=== PATIENT | male | born 1980 ===

== ENCOUNTER 2020-12-23 13:18 | Emergency (ER) | payer OTHER, SELFPAY ==
[2020-12-23 13:51] VITALS: BP 144/78; PULSE 639; RESP 16; TEMP 36.7; O2SAT 97; BMI 35.2
[2020-12-23] MEDS: Tetracaine HCl/PF 0.5% Oph Sol 4 ML DROPS 3 DROP EYE-LEFT (14:23)
[2020-12-23] MEDS: Fluorescein Sodium STRIP 1 STRIP EYE-LEFT (14:23)
[2020-12-23] MEDS: Erythromycin Base 0.5% Oph Oin 1 GM TUBE 1 CM EYE-RIGHT (15:53)
--- NOTE | 2021-01-05 16:27 | ED.EYEPROB ---
HPI - Eye Problem General Chief complaint: Eye Problems Stated complaint: FB IN R EYE Time Seen by Provider: 12/23/20 14:11 History of Present Illness HPI Narrative: patient complains of stye in right upper lid, no vision change no eye pain no vision loss no discharge from a no injury to eye Related Data Previous Rx's Medication Instructions Recorded erythromycin 0.5 inch OPHTHALMIC (EYE) TID 5 12/23/20 Days #3.5 g Allergies Allergy/AdvReac Type Severity Reaction Status Date / Time No Known Allergies Allergy Verified 12/23/20 14:59 [No Known Allergies*] Review of Systems Review of Systems: positive for right eye stye Negatives are no fever no chills no dizziness no headache no vision loss no vision change no eye pain no photophobia no discharge from the eye no foreign body, no skin rash Yes all other systems are reviewed and are negative [facility] Past Medical History Source: nursing notes reviewed Medical History (Updated 12/24/20 @ 00:00 by Background Daemon) No known health problems Social History Social History Advance Directives: No Advance Directives Information Provided: Yes Physical Exam Vital Signs: Vital Signs: Last Vital Signs Temp 98.1 F 12/23/20 13:51 Pulse 639 H 12/23/20 13:51 Resp 16 12/23/20 13:51 BP 144/78 H 12/23/20 13:51 Pulse Ox 97 12/23/20 13:51 Body Mass Index 35.2 general appearance no acute distress Head is normocephalic atraumatic Eyes pupils equal round reactive to light, extraocular motions are intact Visual acuity was 5 bilateral The right eye had a stye in the upper lid medial aspect The eye was stained with fluorescein and no corneal abrasion or defect was seen, there was no discharge from the eye Skin no rash Course Course Course Narrative: patient is advised warm soaks and apply erythromycin and follow with eye doctor if not resolving Discharge Plan Discharge Clinical Impression: Hordeolum externum right upper eyelid Patient Disposition: Home, Self-Care Additional Instructions: Apply warm soaks frequently Apply antibiotic ointment 3 times a day Return any time for worsening eye pain, vision loss, discharge from the eye, any worse condition or concern Follow with eye doctor as needed Prescriptions: New erythromycin 5 mg/gram (0.5 %) ointment 0.5 inch ophthalmic (eye) TID 5 Days Qty: 3.5 RF: 0 Referrals: Alireza Chandler [Physician] - 2 days (Right upper lid stye that has failed to improve for 2 weeks) Interventions: ED Discharge Assessment Last Done: 12/23/20 15:57 Discharge Date/Time: 12/23/20 15:58
== END 2020-12-23 15:58 | disposition home or self-care (01) ==
PROVIDERS: Emergency Provider Emergency Medicine Emergency Medical Services; PCP Internal Medicine
DX: H00.011 Hordeolum externum right upper eyelid (principal)
CPT/HCPCS: 99283; 99284

== ENCOUNTER 2021-02-01 21:02 | Emergency (ER) | payer OTHER, SELFPAY ==
--- NOTE | ~2021-02-01 | XR_ITS ---
EXAMINATION: XR CHEST CLINICAL INFORMATION: Productive cough. COMPARISON: CT abdomen pelvis dated 02/28/2014 TECHNIQUE: Frontal view of the chest was obtained. FINDINGS: There is a small left pleural effusion with associated left basilar atelectasis. Superimposed airspace consolidation in the left lung base is possible. Mild dependent atelectasis is suspected in the right lung base. No pneumothorax. Cardiac and mediastinal contours are normal. Scoliotic curvature is evident in the thoracic spine. No acute osseous findings. XR/XR chest 1V IMPRESSION: Small left effusion with associated left basilar opacities which may be atelectatic or consolidative in nature.
[2021-02-01 21:23] VITALS: BP 124/62; PULSE 73; RESP 18; TEMP 36.2; O2SAT 95; BMI 35.2
[2021-02-01 22:41] LABS: COVID-19 Test Negative (Negative); IDNOW Serial# 9DD0AD1C
[2021-02-01 23:05] LABS: MANUAL DIFF FLAG NO
[2021-02-01 23:06] LABS: Basophils Absolute Auto 0.1 X10*3/uL (0.0-0.2); Basophils Percent Auto 0.5 % (0-2); Eosinophils Absolute Auto 0.4 X10*3/uL (0.0-0.4); Eosinophils Percent Auto 2.7 % (0-4); Hematocrit 38.9 % (42-52); Imm Gran Abs Auto 0.05 X10*3/uL (0.00-0.03); Imm Gran Pct Auto 0.4 % (0.0-0.4); Lymphocytes Absolute Auto 4.7 X10*3/uL (1.2-4.9); Lymphocytes Percent Auto 35.8 % (20-40); Mean Corpuscular HGB Conc 33.4 g/dl (31.0-36.0); Mean Corpuscular Hemoglobin 29.1 pg (27.0-33.0); Mean Corpuscular Volume 87.2 fL (80-98); Mean Platelet Volume 9.4 fL (9.4-12.4); Monocytes Absolute Auto 1.2 X10*3/uL (0.1-1.2); Monocytes Percent Auto 8.9 % (2-11); Neutrophils Absolute Auto 6.8 X10*3/uL (2.0-8.3); Neutrophils Percent Auto 51.7 % (45-73); Platelet Count 212 X10*3/uL (160-400); Red Blood Count 4.46 X10*6/uL (4.60-5.80); Red Cell Distribution Width 14.1 % (11.0-16.0); White Blood Count 13.2 X10*3/uL (4.8-10.8)
[2021-02-01 23:38] LABS: Alanine Aminotransferase 41 U/L (0-40); Albumin Level 3.6 g/dL (3.5-5.0); Alkaline Phosphatase 79 U/L (39-117); Anion Gap 12 (12-20); Aspartate Amino Transferase 35 U/L (5-37); Bilirubin Total 0.2 mg/dL (0.0-1.0); Blood Urea Nitrogen 11 mg/dL (9-16); Calcium 8.6 mg/dL (8.4-10.2); Carbon Dioxide 29 mmol/L (22-29); Chloride 103 mmol/L (96-108); Creatinine Clr Calc Pharmacy 146.4; Estimated Glomerular Filt Rate > 60; Glucose Random 88 mg/dL (60-115); Potassium 3.8 mmol/L (3.3-5.1); Sodium 140 mmol/L (135-145); Total Protein 6.5 g/dL (6.5-8.0)
--- NOTE | 2021-02-02 01:25 | ED_ITS ---
HPI - General Adult General Chief complaint: General Medical Stated complaint: asthma, cough Time Seen by Provider: 02/02/21 01:00 Source: patient Mode of arrival: ambulatory Limitations: no limitations History of Present Illness HPI narrative: 40-year-old male who presents emergency department for evaluation of a cough shortness of breath and a possible infection of his left forearm after injecting heroin. The patient states he has been sick for approximately 7 days. He states he has had a cough which is productive of thick yellow sputum. He states he is having pain in this chest mainly with breathing and with coughing. He points to his sternum when asked to localize the pain he describes the pain as sharp pain. The pain is [id number] in intensity. The patient denied fever or chills. He states that he does have asthma ran out of his inhaler any feels like he has been wheezing. The patient is currently in a methadone program. He states that he was sober for approximately 1 year but 1 week prior he used heroin. He states that he injected heroin into his left antecubital fossa. He is not concerned that has an infection this area. He states that the area where he injected is warm to the touch and swollen. No also states this area is painful. The patient has not been vaccinated for COVID-19. Related Data Previous Rx's Medication Instructions Recorded erythromycin 5 mg/gram (0.5 %) eye 0.5 inch OPHTHALMIC (EYE) TID 5 12/23/20 ointment Days #3.5 g albuterol sulfate 90 mcg/actuation 2 puff INHALATION Q4-6H PRN #8.5 g 02/02/21 aerosol inhaler azithromycin 250 mg tablet See Rx Instructions .ROUTE 02/02/21 (Zithromax Z-Chris) .COMPLEX #6 tab cefuroxime axetil 500 mg tablet 500 mg PO Q12H 7 Days #14 tab 02/02/21 Allergies Allergy/AdvReac Type Severity Reaction Status Date / Time No Known Allergies Allergy Verified 12/23/20 14:59 [No Known Allergies*] Review of Systems Review of Systems: Yes all other systems are reviewed and are negative PMFSH Past Medical History Medical History Asthma Drug abuse and dependence Hypothyroid Methadone maintenance therapy patient No known health problems Social History Social History Alcohol intake: unknown Patient Tobacco Use Status: Refuse Tobacco use screen Use of substances other than those prescribed or required for medical reasons: Yes Substance Use Type: Heroin and Marijuana Substance Use Frequency: Weekly Last Used Substance: Unknown Advance Directives: No Advance Directives Information Provided: Yes Physical Exam Vital Signs: Vital Signs: Last Vital Signs Temp 97.2 F 02/01/21 21:23 Pulse 73 02/01/21 21:23 Resp 18 02/01/21 21:23 BP 124/62 02/01/21 21:23 Pulse Ox 95 02/01/21 21:23 Body Mass Index 35.2 Const: General: cooperative and no acute distress Or ientation/consciousness: oriented to person and oriented to place Limitat ions: no limitations HENMT: Head: Yes normal to inspection, Yes normocephalic and Yes atraumatic Ears: external ears normal General nose exam: Normal external nose present Face and sinus: Yes normal facial exam Mouth: Normal oral and palatal mucosa present Throat: Yes posterior oropharynx normal Eyes: General: appearance normal, both eyes and all related structures Pupils: Equal, round and reactive pupils present Neck: Neck: Yes normal visual inspection, Yes no lymphadenopathy, Yes trachea midline and Yes supple Chest: Chest palpation & inspection: normal inspection of the chest and normal palpation of entire chest wall Resp: Effort & Inspection: normal respiratory effort and able to speak in complete sentences Auscultation: crackles (Left base) and wheezes (Diffuse) Cardio: Rate: regular rate Rhythm: regular rhythm Heart sounds: S1 normal heart sound present, S2 normal heart sound present and no murmurs GI: Inspection: Yes normal to inspection Palpation (GI): Soft to palpation, nontender and no guarding Auscultation: normal bowel sounds : General: Yes no CVA tenderness Back/Spine/Pelvis: Back: no CVA tenderness Skin: General skin exam: no rashes or lesions noted Neuro: General: oriented to person and oriented to place Cranial nerves: Yes CN's II-XII intact bilaterally and Yes Equal, round and reactive pupils present Cognition (Neuro): normal cognition Motor exam (neuro): 5/5 motor strength present throughout Extrem: Other: The patient does have some increased erythema with increased warmth of the left proximal forearm and left antecubital fossa, there is induration is area but no flocculence, there is no purulent drainage is extremity is neurovascularly intact. Psych: Appearance: grossly normal Speech and movement: Normal speech and movement present Affect: normal affect Attitude: cooperative Thought process: Normal thought process present Thought content: Normal thought content present Course Course Course Narrative: 40-year-old male who presents emergency department for evaluation of pneumonia like symptoms and a cellulitis of the left antecubital fossa and injecting heroin 1 week prior. Vital signs were normal. The patient's physical examination did reveal rales at the left base and diffuse wheezing. Patient's left arm does have an area of increased warmth and erythema with induration consistent with cellulitis. Patient's laboratory [place] [address] otherwise labs were normal. Patient's COVID-19 test was negative. Chest x-ray did reveal a left pleural effusion with infiltrate c onsistent with pneumonia. The patient's pneumonia and cellulitis we treated with Zithromax Z-Chris and cefuroxime 500 mg every 12 hours x7 days. He was given Zithromax 500 mg orally and cefuroxime 5 mg orally here in the emergency department. He was also given an albuterol inhaler 4 puffs here in the emergency department. The patient was given verbal and printed instructions prior to discharge. The patient was advised to follow-up with his PCP in 2 days and to return to the emergency department if his symptoms get worse or if he develops any new symptoms that are concerning to him. Medical Decision Making Lab Data Result diagrams: 02/01/21 22:58 02/01/21 22:58 Labs: Lab Results 02/01/21 02/01/21 02/01/21 Range/Units 21:59 22:58 22:58 WBC 13.2 H (4.8-10.8) X10*3/uL RBC 4.46 L (4.60-5.80) X10*6/uL Hgb 13.0 L (14.0-18.0) g/dl Hct 38.9 L (42-52) % MCV 87.2 (80-98) fL MCH 29.1 (27.0-33.0) pg MCHC 33.4 (31.0-36.0) g/dl RDW 14.1 (11.0-16.0) % Plt Count 212 (160-400) X10*3/uL MPV 9.4 (9.4-12.4) fL Immature Gran % (Auto) 0.4 (0.0-0.4) % Neut % (Auto) 51.7 (45-73) % Lymph % (Auto) 35.8 (20-40) % [place] % (Auto) 8.9 (2-11) % Eos % (Auto) 2.7 (0-4) % Baso % (Auto) 0.5 (0-2) % Lymph # (Auto) 4.7 (1.2-4.9) X10*3/uL [place] # (Auto) 1.2 (0.1-1.2) X10*3/uL Eos # (Auto) 0.4 (0.0-0.4) X10*3/uL Baso # (Auto) 0.1 (0.0-0.2) X10*3/uL Abs Immat Gran (auto) 0.05 H (0.00-0.03) X10*3/uL Absolute Neuts (auto) 6.8 (2.0-8.3) X10*3/uL Absolute Nucleated RBC 0.000 (0.0-0.012) X10*3/uL Nucleated RBC % (auto) 0.0 (0.0-0.2) /100WBC Sodium 140 (135-145) mmol/L Potassium 3.8 (3.3-5.1) mmol/L Chloride 103 (96-108) mmol/L Carbon Dioxide 29 (22-29) mmol/L Anion Gap 12 (12-20) BUN 11 (9-16) mg/dL Creatinine 0.88 (0.5-1.4) mg/dL Estim Creat Clear Calc 146.4 Estimated GFR > 60 Random Glucose 88 (60-115) mg/dL Calcium 8.6 (8.4-10.2) mg/dL Total Bilirubin 0.2 (0.0-1.0) mg/dL AST 35 (5-37) U/L ALT 41 H (0-40) U/L Alkaline Phosphatase 79 (39-117) U/L Total Protein 6.5 (6.5-8.0) g/dL Albumin 3.6 (3.5-5.0) g/dL COVID-19 (JANEEN) Negative (Negative) COVID-19 Clin Com See Note Discharge Plan Discharge Clinical Impression: Cellulitis of arm, left, Pneumonia, Asthma Patient Disposition: Home, Self-Care Instructions: Pneumonia (ED), Cellulitis (ED) Additional Instructions: Your laboratory evaluation was normal. Your chest x-ray is concerning for a left lower lobe pneumonia. Examination of your left arm is concerning for skin infection (cellulitis). I am treating with 2 antibiotics that we treat your pneumonia and your cellulitis. Take Zithromax Z-Chris as prescribed. Take Ceftin (cefuroxime) 500 mg pills, 1 pill every 12 hours for 7 days. Use the albuterol inhaler 2 puffs every 4 hours as needed for shortness of breath and wheezing. I am sending you home with a intranasal Narcan dispense pack. If you are going to continue to use heroin, you should make sure that you use with a friend that is sober and not using drugs. If you stop breathing, then your friend can use the intranasal Narcan and save her life. Follow-up with your doctor in 2 days. Please return to the emergency department if your symptoms get worse or if you develop any symptoms that are concerning to you. Prescriptions: New cefuroxime axetil 500 mg tablet 500 mg PO Q12H 7 Days Qty: 14 RF: 0 albuterol sulfate 90 mcg/actuation HFA aerosol inhaler 2 puff inhalation Q4-6H PRN (Reason: shortness of breath or wheezing) Qty: 8.5 RF: 0 azithromycin [Zithromax Z-Chris] 250 mg tablet See Rx Instructions .ROUTE .COMPLEX Qty: 6 RF: 0 No Action erythromycin 5 mg/gram (0.5 %) ointment 0.5 inch ophthalmic (eye) TID 5 Days Qty: 3.5 RF: 0
[2021-02-02] MEDS: Naloxone HCl Nasal TAKE HOME 4 MG SPRAY NOSTRILALT (02:07)
[2021-02-02] MEDS: Albuterol Sulfate 90 MCG 8 GM INHALER 4 PUFF INHALE (02:07)
[2021-02-02] MEDS: Azithromycin 500 MG TABLET PO (02:07)
== END 2021-02-02 02:35 | disposition home or self-care (01) ==
PROVIDERS: Emergency Provider Emergency Medicine Emergency Medical Services; PCP Internal Medicine
DX: J18.9 Pneumonia, unspecified organism (principal); L03.114 Cellulitis of left upper limb; R05 Cough; J45.909 Unspecified asthma, uncomplicated; F11.90 Opioid use, unspecified, uncomplicated; F12.90 Cannabis use, unspecified, uncomplicated; Z79.899 Other long term (current) drug therapy; Z20.822 Contact with and (suspected) exposure to COVID-19
CPT/HCPCS: 36415; 71045; 80053; 85025; 87635; 99284

== ENCOUNTER 2021-02-04 19:45 | Inpatient (IN) | payer OTHER, SELFPAY ==
--- NOTE | ~2021-02-04 | US_ITS ---
EXAMINATION: US VENOUS WITH DOPPLER UPPER EXTREMITY, LEFT CLINICAL INFORMATION: Swelling. COMPARISON: None TECHNIQUE: Ultrasound of the upper extremity is performed using compression sonography and color and pulse Doppler flow with assessment of augmentation of flow. There is also imaging and Doppler assessment of the jugular and subclavian veins. Spectral analysis with color-flow imaging is performed. FINDINGS: Respiratory variation, normal compression, and augmented flow are noted throughout the upper extremity including the axillary, brachial, cubital, and radial and ulnar veins. There is normal flow in the internal jugular and subclavian veins. There is no visible deep or superficial thrombophlebitis. There is small anechoic area seen in the anterior elbow joint most suggestive of small fluid collection likely cellulitis or abscess. There appears to be no connection to the joint space. If the patient's symptoms progress, a followup ultrasound in 5 -7 days might be of value to exclude proximal propagation from a nonvisualized distal arm vein. US/US venous duplex UE LT IMPRESSION: No DVT demonstrated in left upper extremity.
--- NOTE | ~2021-02-04 | XR_ITS ---
EXAMINATION: XR ELBOW, LEFT CLINICAL INFORMATION: Pain and swelling COMPARISON: None TECHNIQUE: AP, lateral, and oblique views of the left elbow. FINDINGS: The bones and soft tissues are normal. No fracture or joint effusion. Alignment is anatomic. Joint spaces are maintained. XR/XR elbow LT 2V IMPRESSION: Normal left elbow.
[2021-02-04 20:02] VITALS: BP 116/69; PULSE 81; RESP 16; TEMP 37.2; O2SAT 94; BMI 35.2
[2021-02-04 20:57] LABS: MANUAL DIFF FLAG NO
[2021-02-04 21:02] LABS: Basophils Absolute Auto 0.1 X10*3/uL (0.0-0.2); Basophils Percent Auto 0.3 % (0-2); Eosinophils Percent Auto 0.1 % (0-4); Imm Gran Abs Auto 0.07 X10*3/uL (0.00-0.03); Imm Gran Pct Auto 0.4 % (0.0-0.4); Lymphocytes Absolute Auto 1.9 X10*3/uL (1.2-4.9); Lymphocytes Percent Auto 11.5 % (20-40); Mean Corpuscular HGB Conc 34.2 g/dl (31.0-36.0); Mean Corpuscular Hemoglobin 29.4 pg (27.0-33.0); Mean Platelet Volume 9.1 fL (9.4-12.4); Monocytes Absolute Auto 0.9 X10*3/uL (0.1-1.2); Monocytes Percent Auto 5.2 % (2-11); Neutrophils Absolute Auto 13.8 X10*3/uL (2.0-8.3); Neutrophils Percent Auto 82.5 % (45-73); Platelet Count 224 X10*3/uL (160-400); Red Blood Count 4.42 X10*6/uL (4.60-5.80); White Blood Count 16.7 X10*3/uL (4.8-10.8)
[2021-02-04 21:19] LABS: Ethanol < 10 mg/dL
[2021-02-04 21:21] LABS: Anion Gap 14 (12-20); Blood Urea Nitrogen 11 mg/dL (9-16); Carbon Dioxide 26 mmol/L (22-29); Chloride 102 mmol/L (96-108); Creatinine Clr Calc Pharmacy 153.4; Estimated Glomerular Filt Rate > 60; Glucose Random 105 mg/dL (60-115); Potassium 3.8 mmol/L (3.3-5.1); Sodium 138 mmol/L (135-145)
--- NOTE | 2021-02-04 22:00 | ED_ITS ---
HPI - Skin/Abscess/Foreign Bdy General Chief complaint: Skin/Abscess/Foreign Body Stated complaint: Arm swelling Time Seen by Provider: 02/04/21 21:33 Source: patient Mode of arrival: ambulatory Limitations: no limitations History of Present Illness HPI narrative: 40 years old male came in for evaluation of left arm infection. Patient was seen in the emergency department 2 days ago for left arm infection after IV heroin injection into the ECU of the left arm, patient also was diagnosed with possible left lung pneumonia, patient was sent home on cefuroxime, the Cerumenex and erythromycin ointment to apply to the infected area of the left arm. Patient came back today feeling his arm is getting worse, more pain and more swelling and more redness noted on the left arm. No subjective fever or chills. Related Data Previous Rx's Medication Instructions Recorded erythromycin 5 mg/gram (0.5 %) eye 0.5 inch OPHTHALMIC (EYE) TID 5 12/23/20 ointment Days #3.5 g albuterol sulfate 90 mcg/actuation 2 puff INHALATION Q4-6H PRN #8.5 g 02/02/21 aerosol inhaler azithromycin 250 mg tablet See Rx Instructions .ROUTE 02/02/21 (Zithromax Z-Chris) .COMPLEX #6 tab cefuroxime axetil 500 mg tablet 500 mg PO Q12H 7 Days #14 tab 02/02/21 Allergies Allergy/AdvReac Type Severity Reaction Status Date / Time No Known Allergies Allergy Verified 02/04/21 20:10 [No Known Allergies*] Review of Systems Review of Systems: All other systems are reviewed and are negative Constitutional: Reports as per HPI and Reports no additional constitutional complaints Eyes: Reports as per HPI and Reports no additional eye complaints Reports system reviewed and no additional complaints, except as documented Cardiovascular: Reports as per HPI and Reports no additional cardiovascular complaints Respiratory: Reports as per HPI and Reports no additional respiratory complaints Gastrointestinal: Reports as per HPI and Reports no additional gastrointestinal complaints Genitourinary: Reports no additional female genitourinary complaints Musculoskeletal: Reports no additional musculoskeletal complaints Skin/Breast: Reports system reviewed and no additional complaints, except as docu Psychiatric: Reports no additional psychiatric complaints Endocrine: Reports no additional endocrine complaints Hematologic/Lymphatic: Reports no additional hematologic/lymphatic complaints Allergic/Immunologic: Reports no additional allergic/immunologic complaints Reports system reviewed and no additional complaints, except as documented and Reports Abnormal speech present PMFSH Past Medical History Medical History Asthma Drug abuse and dependence Hypothyroid Methadone maintenance therapy patient No known health problems Social History Social History Alcohol intake: unknown Patient Tobacco Use Status: Refuse Tobacco use screen Substance Use Type: Heroin and Marijuana Advance Directives: No Physical Exam Vital Signs: Vital Signs: Last Vital Signs Temp 99 F 02/04/21 20:02 Pulse 81 02/04/21 20:02 Resp 16 02/04/21 20:02 BP 116/69 02/04/21 20:02 Pulse Ox 94 02/04/21 20:02 Body Mass Index 35.2 Vital signs have been reviewed as appeared to be correct. Blood pressure normal. Heart rate normal. Respiration rate normal. Temperature normal. Oxygen saturation normal. Appearance: Alert. Oriented X3. No acute distress. Head: Normal external exam. Normocephalic. Atraumatic. No Delgado signs noted. No raccoon eyes noted Eyes: PERRLA. EOMI. Conjunctiva and sclera normal. Eyelids normal. ENT: TM's Normal. Pharynx normal. Uvula midline. Moist mucous membranes. No trismus noted. No drooling noted. No muffled voice noted. Neck: Normal inspection. Neck supple. FROM. No adenopathy. Thyroid Normal. No meningeal signs. No neck mass noted. CVS: Normal heart rate and rhythm. Heart sound normal. No murmurs noted. Pulses normal throughout. Respiratory: No respiratory distress. Painless inspiration. Breath sounds normal. No wheezes/rales/rhonchi noted. Chest nontender. No accessory muscle usage noted or decreased air movement noted. Abdomen: Soft and nontender. Bowel sounds normal in all 4 quadrants. No distention noted. No organomegaly noted. No visible injury noted. Back: No CVA tenderness. Full range of motion noted. Skin: Skin warm and dry. Normal skin color. Normal skin turgor. No rashes/lesions/lacerations noted. Extremities: Left forearm swelling, diffuse tenderness, hotness, and redness to the left forearm. 3 x 4 cm area of fluctuation in the left AC. Neuro: Oriented X 3. No motor deficit. No sensory deficit. Reflexes normal. Course Course Course Narrative: Assessment and plan. 40-year-old male IV drug abuser was seen 2 days ago for left forearm cellulitis patient was sent home on p.o. antibiotic, patient returned today for worsening of the swelling, redness, hotness, also patient formed new abscess in the left AC that required to be incision and drained please refer to my procedure note for I and D, patient will require IV antibiotic, patient do not meet criteria for SIRS. MDM - Skin/Abscess/Foreign Bdy Lab Data Attestation: I reviewed the patient's lab results. Result diagrams: 02/04/21 20:51 02/04/21 20:51 Labs: Lab Results 02/04/21 02/04/21 02/04/21 Range/Units 20:47 20:51 20:51 WBC 16.7 H (4.8-10.8) X10*3/uL RBC 4.42 L (4.60-5.80) X10*6/uL Hgb 13.0 L (14.0-18.0) g/dl Hct 38.0 L (42-52) % MCV 86.0 (80-98) fL MCH 29.4 (27.0-33.0) pg MCHC 34.2 (31.0-36.0) g/dl RDW 14.0 (11.0-16.0) % Plt Count 224 (160-400) X10*3/uL MPV 9.1 L (9.4-12.4) fL Immature Gran % (Auto) 0.4 (0.0-0.4) % Neut % (Auto) 82.5 H (45-73) % Lymph % (Auto) 11.5 L (20-40) % [place] % (Auto) 5.2 (2-11) % Eos % (Auto) 0.1 (0-4) % Baso % (Auto) 0.3 (0-2) % Lymph # (Auto) 1.9 (1.2-4.9) X10*3/uL [place] # (Auto) 0.9 (0.1-1.2) X10*3/uL Eos # (Auto) 0.0 (0.0-0.4) X10*3/uL Baso # (Auto) 0.1 (0.0-0.2) X10*3/uL Abs Immat Gran (auto) 0.07 H (0.00-0.03) X10*3/uL Absolute Neuts (auto) 13.8 H (2.0-8.3) X10*3/uL Absolute Nucleated RBC 0.000 (0.0-0.012) X10*3/uL Nucleated RBC % (auto) 0.0 (0.0-0.2) /100WBC Sodium 138 (135-145) mmol/L Potassium 3.8 (3.3-5.1) mmol/L Chloride 102 (96-108) mmol/L Carbon Dioxide 26 (22-29) mmol/L Anion Gap 14 (12-20) BUN 11 (9-16) mg/dL Creatinine 0.84 (0.5-1.4) mg/dL Estim Creat Clear Calc 153.4 Estimated GFR > 60 Random Glucose 105 (60-115) mg/dL Lactic Acid 0.8 (0.5-2.0) mmol/L Calcium 9.0 (8.4-10.2) mg/dL Urine Color Urine Appearance Urine pH (5.0-8.0) Ur Specific [place] (1.005-1.025) Urine Protein (NEG-TRACE) MG/DL Urine Glucose (UA) (NEG) MG/DL Urine Ketones (NEG) MG/DL Urine Blood (NEG) Urine Nitrite (NEG) Ur Leukocyte Esterase (NEG) Urine Opiates Screen (Not Detect) Ur Barbiturates Screen (Not Detect) Ur Phencyclidine Scrn (Not Detect) Ur Amphetamines Screen (Not Detect) U Benzodiazepines Scrn (Not Detect) Urine Cocaine Screen (Not Detect) U Marijuana (THC) Screen (Not Detect) Ethyl Alcohol mg/dL COVID-19 (JANEEN) (Negative) COVID-19 Clin Com 02/04/21 02/04/21 02/04/21 Range/Units 20:51 21:50 21:50 WBC (4.8-10.8) X10*3/uL RBC (4.60-5.80) X10*6/uL Hgb (14.0-18.0) g/dl Hct (42-52) % MCV (80-98) fL MCH (27.0-33.0) pg MCHC (31.0-36.0) g/dl RDW (11.0-16.0) % Plt Count (160-400) X10*3/uL MPV (9.4-12.4) fL Immature Gran % (Auto) (0.0-0.4) % Neut % (Auto) (45-73) % Lymph % (Auto) (20-40) % [place] % (Auto) (2-11) % Eos % (Auto) (0-4) % Baso % (Auto) (0-2) % Lymph # (Auto) (1.2-4.9) X10*3/uL [place] # (Auto) (0.1-1.2) X10*3/uL Eos # (Auto) (0.0-0.4) X10*3/uL Baso # (Auto) (0.0-0.2) X10*3/uL Abs Immat Gran (auto) (0.00-0.03) X10*3/uL Absolute Neuts (auto) (2.0-8.3) X10*3/uL Absolute Nucleated RBC (0.0-0.012) X10*3/uL Nucleated RBC % (auto) (0.0-0.2) /100WBC Sodium (135-145) mmol/L Potassium (3.3-5.1) mmol/L Chloride (96-108) mmol/L Carbon Dioxide (22-29) mmol/L Anion Gap (12-20) BUN (9-16) mg/dL Creatinine (0.5-1.4) mg/dL Estim Creat Clear Calc Estimated GFR Random Glucose (60-115) mg/dL Lactic Acid (0.5-2.0) mmol/L Calcium (8.4-10.2) mg/dL Urine Color YELLOW Urine Appearance CLEAR Urine pH 6.0 (5.0-8.0) Ur Specific [place] 1.010 (1.005-1.025) Urine Protein NEG (NEG-TRACE) MG/DL Urine Glucose (UA) NEG (NEG) MG/DL Urine Ketones NEG (NEG) MG/DL Urine Blood NEG (NEG) Urine Nitrite NEG (NEG) Ur Leukocyte Esterase NEG (NEG) Urine Opiates Screen POSITIVE H (Not Detect) Ur Barbiturates Screen Not Detected (Not Detect) Ur Phencyclidine Scrn Not Detected (Not Detect) Ur Amphetamines Screen Not Detected (Not Detect) U Benzodiazepines Scrn Not Detected (Not Detect) Urine Cocaine Screen POSITIVE H (Not Detect) U Marijuana (THC) Screen Not Detected (Not Detect) Ethyl Alcohol < 10 mg/dL COVID-19 (JANEEN) (Negative) COVID-19 Clin Com 02/04/21 02/04/21 Range/Units 22:20 22:20 WBC (4.8-10.8) X10*3/uL RBC (4.60-5.80) X10*6/uL Hgb (14.0-18.0) g/dl Hct (42-52) % MCV (80-98) fL MCH (27.0-33.0) pg MCHC (31.0-36.0) g/dl RDW (11.0-16.0) % Plt Count (160-400) X10*3/uL MPV (9.4-12.4) fL Immature Gran % (Auto) (0.0-0.4) % Neut % (Auto) (45-73) % Lymph % (Auto) (20-40) % [place] % (Auto) (2-11) % Eos % (Auto) (0-4) % Baso % (Auto) (0-2) % Lymph # (Auto) (1.2-4.9) X10*3/uL [place] # (Auto) (0.1-1.2) X10*3/uL Eos # (Auto) (0.0-0.4) X10*3/uL Baso # (Auto) (0.0-0.2) X10*3/uL Abs Immat Gran (auto) (0.00-0.03) X10*3/uL Absolute Neuts (auto) (2.0-8.3) X10*3/uL Absolute Nucleated RBC (0.0-0.012) X10*3/uL Nucleated RBC % (auto) (0.0-0.2) /100WBC Sodium (135-145) mmol/L Potassium (3.3-5.1) mmol/L Chloride (96-108) mmol/L Carbon Dioxide (22-29) mmol/L Anion Gap (12-20) BUN (9-16) mg/dL Creatinine (0.5-1.4) mg/dL Estim Creat Clear Calc Estimated GFR Random Glucose (60-115) mg/dL Lactic Acid 0.7 (0.5-2.0) mmol/L Calcium (8.4-10.2) mg/dL Urine Color Urine Appearance Urine pH (5.0-8.0) Ur Specific [place] (1.005-1.025) Urine Protein (NEG-TRACE) MG/DL Urine Glucose (UA) (NEG) MG/DL Urine Ketones (NEG) MG/DL Urine Blood (NEG) Urine Nitrite (NEG) Ur Leukocyte Esterase (NEG) Urine Opiates Screen (Not Detect) Ur Barbiturates Screen (Not Detect) Ur Phencyclidine Scrn (Not Detect) Ur Amphetamines Screen (Not Detect) U Benzodiazepines Scrn (Not Detect) Urine Cocaine Screen (Not Detect) U Marijuana (THC) Screen (Not Detect) Ethyl Alcohol mg/dL COVID-19 (JANEEN) Negative (Negative) COVID-19 Clin Com See Note Procedures Abscess I/D Site: upper extremity (Left AC) Side (if applicable): left Local Anesthetic: lidocaine 1% Amount of anesthesia used (mL): 5 Technique: incised with blade Amount of fluid expressed (mL): 15 Sent for culture/gram staining?: No Irrigation: No Packing used?: none Discharge Plan Discharge Clinical Impression: Cellulitis, Abscess of skin or subcutaneous tissue Patient Disposition: Admitted As Inpatient Prescriptions: No Action cefuroxime axetil 500 mg tablet 500 mg PO Q12H 7 Days Qty: 14 RF: 0 albuterol sulfate 90 mcg/actuation HFA aerosol inhaler 2 puff inhalation Q4-6H PRN (Reason: shortness of breath or wheezing) Qty: 8.5 RF: 0 azithromycin [Zithromax Z-Chris] 250 mg tablet See Rx Instructions .ROUTE .COMPLEX Qty: 6 RF: 0 erythromycin 5 mg/gram (0.5 %) ointment 0.5 inch ophthalmic (eye) TID 5 Days Qty: 3.5 RF: 0
[2021-02-04 22:01] LABS: Appearance Urine CLEAR; Color Urine YELLOW; Glucose Urine UA NEG (NEG); Leukocyte Esterase Urine NEG (NEG); Nitrite Urine NEG (NEG); Urine Blood NEG (NEG); Urine Ketones NEG (NEG); Urine Protein NEG (NEG-TRACE)
[2021-02-04 22:06] LABS: Lactic Acid 0.8 mmol/L (0.5-2.0)
[2021-02-04 22:27] LABS: Amphetamine Screen Urine Not Detected (Not Detect); Barbiturates, Urine Not Detected (Not Detect); Benzodiazepines Screen Urine Not Detected (Not Detect); Cannabinoid Screen Urine Not Detected (Not Detect); Cocaine Screen Urine POSITIVE (Not Detect); Opiate Screen Urine POSITIVE (Not Detect); Phencyclidine Screen Urine Not Detected (Not Detect)
[2021-02-04] MEDS: Piperacillin Sodium/Tazobactam 3.375 GM in 0.9 % Sodium Chloride 50 ML IV (22:32)
--- NOTE | 2021-02-04 22:34 | PC.NURSE ---
Dr. Chino to bedside to perform I&D on abscess to left inner forearm. ABX hung and running per SEP.
[2021-02-04 22:43] LABS: COVID-19 Test Negative (Negative)
[2021-02-04] MEDS: Lidocaine HCl 1 % MPF 5 ML VIAL 10 ML SUBCUT (22:44)
[2021-02-04 22:50] LABS: Lactic Acid 0.7 mmol/L (0.5-2.0)
[2021-02-04] MEDS: vancomycin HCL 1,000 MG in 0.9 % Sodium Chloride 250 ML 270 MG IV (23:21)
--- NOTE | 2021-02-05 00:52 | PM.IMHP ---
History of Present Illness Date of Service: 02/05/21 Chief Complaint: Left forearm pain/redness/swelling. 40-year-old male with a past medical history of IV drug abuse, opiate dependence on methadone program presented to the hospital with a chief complaint of left forearm pain redness and swelling. Patient reports that over the past 1 week he has been having left forearm pain redness and swelling more close towards the elbow, denies any pain in the elbow, mentions that he is able to flex and extend the elbow joint; today he had a fever hence came to the hospital for further evaluation. Patient denies any chest pain palpitations, lightheadedness dizziness or shortness of breath. Denies any nausea vomiting diarrhea. Denies any urinary symptoms. Patient reports that he uses cannabis and heroin intermittently. Losses few days ago. Mentions that he takes methadone 80 mg from methadone maintenance program. Review of all other systems is negative except mentioned above ER course: Per ER physician patient's blood forearm noted to have flexion see consider gastritis, status post I&D. Dressing in place. Given IV vancomycin and Zosyn. Admitted to the hospital for further management. [facility] Medical History Asthma Drug abuse and dependence Hypothyroid Methadone maintenance therapy patient No known health problems Social History Household Members: None Housing: Homeless Do you presently have visiting nurse or other home services: No Alcohol intake: unknown Patient Tobacco Use Status: Current everyday Tobacco user Tobacco use type: Cigarette Cigarette Packs Per Day: 1 Cigarettes Per Day: 20.0 Years Smoked: 25 e-Cigarette/Vaping Use: Never Used Second Hand Smoke Exposure: Yes Substance Use Type: Crack/Cocaine and Heroin service: No Current occupational status: employed Meds Allergies Allergy/AdvReac Type Severity Reaction Status Date / Time No Known Allergies Allergy Verified 02/04/21 20:10 [No Known Allergies*] Active Medications: Current Medications Generic Name Dose Route Start Last Admin Trade Name Freq PRN Reason Stop Dose Admin Acetaminophen 650 mg 02/05/21 00:50 Acetaminophen 325 Mg Tablet PO Q6H PRN Pain, Mild (Pain Scale 1-3) Heparin Sodium (Porcine) 5,000 unit 02/05/21 01:00 Heparin Sodium,Porcine 5,000 Unit/Ml Vial SUBCUT Q8H [facility] Piperacillin Sod/Tazobactam 50 mls @ 100 mls/hr 02/05/21 01:00 Sod 3.375 gm/ Sodium Chloride IV Q6H [facility] Vancomycin HCl 1,000 mg/ 270 mls @ 270 mls/hr 02/05/21 01:00 Sodium Chloride IV Q12H [facility] Sodium Chloride 1,000 mls @ 100 mls/hr 02/05/21 01:00 Ns IVCONT .Q10H [facility] Melatonin 6 mg 02/05/21 00:50 Melatonin 3 Mg Tablet PO BEDTIME PRN Insomnia Oxycodone HCl 5 mg 02/05/21 00:50 Oxycodone Hcl Immed Release 5 Mg Tablet PO Q6H PRN Pain, Severe (Pain Scale 7-10) Pharmacy Consult 1 each 02/05/21 00:47 Consult Rx Vancomycin Dosing MISCELLANE DAILY PRN Consult order Senna 17.2 mg 02/05/21 00:50 Sennosides 8.6 Mg Tablet PO BEDTIME PRN Constipation Sodium Chloride 3 ml 02/05/21 08:00 0.9 % Sodium Chloride Flush 3 Ml Syringe IVFLUSH QSHIFT [facility] Home Medications Medication Instructions Recorded Confirmed Last Taken Type albuterol sulfate 90 mcg/actuation 2 puff PO Q4H PRN 02/05/21 02/05/21 Unknown History aerosol inhaler (ProAir HFA) methadone 80 mg PO DAILY 02/05/21 02/05/21 Unknown History Physical Exam Vital Signs and Narrative: Vital Signs: Last Vital Signs Temp 99 F 02/04/21 20:02 Pulse 81 02/04/21 20:02 Resp 16 02/04/21 20:02 BP 116/69 02/04/21 20:02 Pulse Ox 94 02/04/21 20:02 Body Mass Index 35.2 Gen: Appears be in no acute distress HEENT: NCAT, Moist mucosa. Pulmonary: Vesicular breath sounds, fair air entry CVS: Normal S1-S2 Abdomen: BS+, Soft, Nontender Extremities: Warm well perfused; noted to have distal left arm and proximal left forearm are warm tender hyperemic and swollen; status post I& D. Dressing in place. Range of motion at the elbow joint is intact. Neuro: Alert and awake. Results Labs CBC and Chem 7: 02/06/21 05:52 02/06/21 05:52 Labs: Laboratory Results - last 24 hr 02/04/21 02/04/21 02/04/21 20:47 20:51 20:51 MCV 86.0 MCH 29.4 MCHC 34.2 RDW 14.0 Plt Count 224 MPV 9.1 L Immature Gran % (Auto) 0.4 Neut % (Auto) 82.5 H Lymph % (Auto) 11.5 L [place] % (Auto) 5.2 Eos % (Auto) 0.1 Baso % (Auto) 0.3 Lymph # (Auto) 1.9 [place] # (Auto) 0.9 Eos # (Auto) 0.0 Baso # (Auto) 0.1 Abs Immat Gran (auto) 0.07 H Absolute Neuts (auto) 13.8 H Absolute Nucleated RBC 0.000 Nucleated RBC % (auto) 0.0 Anion Gap 14 Estim Creat Clear Calc 153.4 Estimated GFR > 60 Random Glucose 105 Lactic Acid 0.8 Calcium 9.0 Urine Color Urine Appearance Urine pH Ur Specific [place] Urine Protein Urine Glucose (UA) Urine Ketones Urine Blood Urine Nitrite Ur Leukocyte Esterase Urine Opiates Screen Ur Barbiturates Screen Ur Phencyclidine Scrn Ur Amphetamines Screen U Benzodiazepines Scrn Urine Cocaine Screen U Marijuana (THC) Screen Ethyl Alcohol COVID-19 (JANEEN) COVID-19 Clin Com 02/04/21 02/04/21 02/04/21 20:51 21:50 21:50 MCV MCH MCHC RDW Plt Count MPV Immature Gran % (Auto) Neut % (Auto) Lymph % (Auto) [place] % (Auto) Eos % (Auto) Baso % (Auto) Lymph # (Auto) [place] # (Auto) Eos # (Auto) Baso # (Auto) Abs Immat Gran (auto) Absolute Neuts (auto) Absolute Nucleated RBC Nucleated RBC % (auto) Anion Gap Estim Creat Clear Calc Estimated GFR Random Glucose Lactic Acid Calcium Urine Color YELLOW Urine Appearance CLEAR Urine pH 6.0 Ur Specific [place] 1.010 Urine Protein NEG Urine Glucose (UA) NEG Urine Ketones NEG Urine Blood NEG Urine Nitrite NEG Ur Leukocyte Esterase NEG Urine Opiates Screen POSITIVE H Ur Barbiturates Screen Not Detected Ur Phencyclidine Scrn Not Detected Ur Amphetamines Screen Not Detected U Benzodiazepines Scrn Not Detected Urine Cocaine Screen POSITIVE H U Marijuana (THC) Screen Not Detected Ethyl Alcohol < 10 COVID-19 (JANEEN) COVID-19 Clin Com 02/04/21 02/04/21 22:20 22:20 MCV MCH MCHC RDW Plt Count MPV Immature Gran % (Auto) Neut % (Auto) Lymph % (Auto) [place] % (Auto) Eos % (Auto) Baso % (Auto) Lymph # (Auto) [place] # (Auto) Eos # (Auto) Baso # (Auto) Abs Immat Gran (auto) Absolute Neuts (auto) Absolute Nucleated RBC Nucleated RBC % (auto) Anion Gap Estim Creat Clear Calc Estimated GFR Random Glucose Lactic Acid 0.7 Calcium Urine Color Urine Appearance Urine pH Ur Specific [place] Urine Protein Urine Glucose (UA) Urine Ketones Urine Blood Urine Nitrite Ur Leukocyte Esterase Urine Opiates Screen Ur Barbiturates Screen Ur Phencyclidine Scrn Ur Amphetamines Screen U Benzodiazepines Scrn Urine Cocaine Screen U Marijuana (THC) Screen Ethyl Alcohol COVID-19 (JANEEN) Negative COVID-19 Clin Com See Note Assessment and Plan (1) Cellulitis: Qualifiers: Laterality: left Site of cellulitis of extremity: upper extremity Status: Acute 40-year-old male with a past medical history of substance abuse, opiate dependence on methadone presented to the hospital with a chief complaint of left forearm pain redness and swelling, noted to have cellulitis/abscess. Status post I&D in the ER. Admitted for further management. Left forearm cellulitis/abscess: Continue IV vancomycin and Zosyn. Follow up cultures. Pain control Elbow range of motion is fairly maintained. Will also obtain an x-ray of the elbow joint. Will also obtain ultrasound to rule out blood clots and abscess. Will consult ID and General surgery for further recommendations. History of opiate dependence: Patient on methadone program. Will consult Addiction Medicine. DVT prophylaxis: Subcu heparin Code status: Full code Quality Stroke Does the patient have a stroke diagnosis?: No VTE Prior VTE?: No VTE Risk Level:: Medical - moderate - high VTE Device Contraindication: Treatment Not Indicated VTE Drug Contraindication: N/A - Med Ordered
[2021-02-05] MEDS: 0.9 % Sodium Chloride 1,000 ML 100 ML IVCONT ×2 (02:04→11:32)
[2021-02-05] MEDS: Heparin Sodium,Porcine 5,000 UNIT/ML VIAL 5000 UNIT SUBCUT ×3 (02:05→16:17)
[2021-02-05] MEDS: Piperacillin Sodium/Tazobactam 3.375 GM in 0.9 % Sodium Chloride 50 ML IV ×4 (04:55→20:24)
[2021-02-05 07:34] LABS: MANUAL DIFF FLAG NO
[2021-02-05 07:38] LABS: Basophils Absolute Auto 0.1 X10*3/uL (0.0-0.2); Basophils Percent Auto 0.4 % (0-2); Eosinophils Absolute Auto 0.2 X10*3/uL (0.0-0.4); Eosinophils Percent Auto 1.4 % (0-4); Hematocrit 37.1 % (42-52); Hemoglobin 12.3 g/dl (14.0-18.0); Imm Gran Abs Auto 0.05 X10*3/uL (0.00-0.03); Imm Gran Pct Auto 0.4 % (0.0-0.4); Lymphocytes Absolute Auto 3.5 X10*3/uL (1.2-4.9); Lymphocytes Percent Auto 24.8 % (20-40); Mean Corpuscular HGB Conc 33.2 g/dl (31.0-36.0); Mean Corpuscular Hemoglobin 28.9 pg (27.0-33.0); Mean Corpuscular Volume 87.1 fL (80-98); Mean Platelet Volume 9.7 fL (9.4-12.4); Monocytes Absolute Auto 1.1 X10*3/uL (0.1-1.2); Monocytes Percent Auto 7.6 % (2-11); Neutrophils Absolute Auto 9.3 X10*3/uL (2.0-8.3); Neutrophils Percent Auto 65.4 % (45-73); Platelet Count 213 X10*3/uL (160-400); Red Blood Count 4.26 X10*6/uL (4.60-5.80); Red Cell Distribution Width 14.2 % (11.0-16.0); White Blood Count 14.3 X10*3/uL (4.8-10.8)
--- NOTE | 2021-02-05 07:50 | PM.CNGS ---
History of Present Illness Consult details Consult date: 02/05/21 Narrative: 40-year-old male patient with history of IV drug abuse, reports injecting heroin in his left arm at the antecubital fossa now has a area of redness swelling and pain. He was found to have an abscess in this location and subsequently underwent incision and drainage. He still reports some pain and swelling in the left arm. He is admitted to the hospitalist service for IV antibiotics. He denies a previous infection in this location. He reports fever and chills but denies nausea, vomiting, diarrhea, or other associated symptoms. Surgical consultation requested for wound care management. Review of Systems Review of Systems: Yes all other systems are reviewed and are negative Constitutional: Constitutional: Reports chills, Reports fever(s) and Reports malaise Cardiovascular: Cardiovascular: Denies chest pain at rest, Denies rapid heart rate and Denies irregular heart rhythm Respiratory: Respiratory: Denies chest congestion and Denies cough Integumentary/Breasts: Skin/Breast: Reports as per [facility] Past Medical History Medical History Asthma Drug abuse and dependence Hypothyroid Methadone maintenance therapy patient No known health problems Social History Social History Alcohol intake: unknown Patient Tobacco Use Status: Refuse Tobacco use screen Substance Use Type: Heroin and Marijuana Advance Directives: No Meds Allergies Allergy/AdvReac Type Severity Reaction Status Date / Time No Known Allergies Allergy Verified 02/04/21 20:10 [No Known Allergies*] Active Medications: Current Medications Generic Name Dose Route Start Last Admin Trade Name Freq PRN Reason Stop Dose Admin Acetaminophen 650 mg 02/05/21 00:50 Acetaminophen 325 Mg Tablet PO Q6H PRN Pain, Mild (Pain Scale 1-3) Heparin Sodium (Porcine) 5,000 unit 02/05/21 01:00 02/05/21 02:05 Heparin Sodium,Porcine 5,000 Unit/Ml Vial SUBCUT 5,000 unit Q8H [facility] Administration Piperacillin Sod/Tazobactam 50 mls @ 100 mls/hr 02/05/21 04:00 02/05/21 04:55 Sod 3.375 gm/ Sodium Chloride IV 100 mls/hr Q6H [facility] Administration Sodium Chloride 1,000 mls @ 100 mls/hr 02/05/21 01:00 02/05/21 02:04 Ns IVCONT 100 mls/hr .Q10H [facility] Administration Vancomycin HCl 1,500 mg/ 500 mls @ 333.333 mls/hr 02/05/21 11:00 Sodium Chloride IV Q12H [facility] Melatonin 6 mg 02/05/21 00:50 Melatonin 3 Mg Tablet PO BEDTIME PRN Insomnia Oxycodone HCl 5 mg 02/05/21 00:50 Oxycodone Hcl Immed Release 5 Mg Tablet PO Q6H PRN Pain, Severe (Pain Scale 7-10) Pharmacy Consult 1 each 02/05/21 00:47 Consult Rx Vancomycin Dosing MISCELLANE DAILY PRN Consult order Senna 17.2 mg 02/05/21 00:50 Sennosides 8.6 Mg Tablet PO BEDTIME PRN Constipation Sodium Chloride 3 ml 02/05/21 08:00 0.9 % Sodium Chloride Flush 3 Ml Syringe IVFLUSH QSHIFT [facility] Home Medications Medication Instructions Recorded Confirmed Last Taken Type albuterol sulfate 90 mcg/actuation 2 puff PO Q4H PRN 02/05/21 02/05/21 Unknown History aerosol inhaler (ProAir HFA) methadone 80 mg PO DAILY 02/05/21 02/05/21 Unknown History Physical Exam Vital Signs: Vital Signs: Last Vital Signs Temp 99 F 02/04/21 20:02 Pulse 81 02/04/21 20:02 Resp 16 02/04/21 20:02 BP 116/69 02/04/21 20:02 Pulse Ox 94 02/04/21 20:02 Body Mass Index 35.2 Const: General: well developed and ill appearing Nutritional Appearance: well nourished Orientation/consciousness: patient oriented x3 Resp: Effort & Inspection: normal respiratory effort, no cough and no respiratory distress Cardio: Jugular venous distension: no JVD Rate: regular rate Rhythm: regular rhythm GI: Inspection: Yes normal to inspection Skin: General skin exam: no rashes or lesions noted Neuro: General: patient oriented x3 Extrem: Other: Left arm antecubital fossa with the area of incision with purulence discharge noted. Dressings were changed. Wound is open and draining. There is some edema in the forearm possibly related to the dressing being applied tightly. A new dressing applied with fluff gauze and Kerlix. Patient tolerated well. Elbow/forearm/wrist images: 1. Site of abscess left arm Results Labs Result diagrams: 02/05/21 07:26 02/04/21 20:51 Labs: Abnormal lab results 02/04/21 02/04/21 02/05/21 Range/Units 20:51 21:50 07:26 WBC 16.7 H 14.3 H (4.8-10.8) X10*3/uL RBC 4.42 L 4.26 L (4.60-5.80) X10*6/uL Hgb 13.0 L 12.3 L (14.0-18.0) g/dl Hct 38.0 L 37.1 L (42-52) % MPV 9.1 L (9.4-12.4) fL Neut % (Auto) 82.5 H (45-73) % Lymph % (Auto) 11.5 L (20-40) % Abs Immat Gran (auto) 0.07 H 0.05 H (0.00-0.03) X10*3/uL Absolute Neuts (auto) 13.8 H 9.3 H (2.0-8.3) X10*3/uL Urine Opiates Screen POSITIVE H (Not Detect) Urine Cocaine Screen POSITIVE H (Not Detect) Short CBC 02/04/21 02/05/21 Range/Units 20:51 07:26 WBC 16.7 H 14.3 H (4.8-10.8) X10*3/uL Hgb 13.0 L 12.3 L (14.0-18.0) g/dl Hct 38.0 L 37.1 L (42-52) % Plt Count 224 213 (160-400) X10*3/uL BMP 02/04/21 20:51 Sodium 138 Potassium 3.8 Chloride 102 Carbon Dioxide 26 BUN 11 Creatinine 0.84 Calcium 9.0 Urine 02/04/21 Range/Units 21:50 Urine Color YELLOW Urine Appearance CLEAR Urine pH 6.0 (5.0-8.0) Ur Specific [place] 1.010 (1.005-1.025) Urine Protein NEG (NEG-TRACE) MG/DL Urine Glucose (UA) NEG (NEG) MG/DL All other labs normal. Assessment and Plan (1) Abscess of skin or subcutaneous tissue: Qualifiers: Laterality: left Site of cutaneous abscess of extremity: upper extremity Status: Acute 40-year-old male patient with history of IV drug use with an abscess in the left antecubital fossa. Wound was again am in today and found to be open and draining adequately. No further incision and drainage is required at this time. He should continue with daily dressing changes and p.r.n. dressing changes to the wound. He should keep the arm elevated as much as possible decreased swelling. Will follow during his hospitalization. Procedures Date of Service Date of Service: 02/05/21
[2021-02-05 08:18] LABS: Anion Gap 11 (12-20); Blood Urea Nitrogen 10 mg/dL (9-16); Calcium 8.4 mg/dL (8.4-10.2); Carbon Dioxide 27 mmol/L (22-29); Chloride 105 mmol/L (96-108); Estimated Glomerular Filt Rate > 60; Glucose Random 93 mg/dL (60-115); Potassium 3.6 mmol/L (3.3-5.1); Sodium 139 mmol/L (135-145)
[2021-02-05 09:23] VITALS: BP 112/57; PULSE 62; RESP 18; TEMP 36; O2SAT 96
[2021-02-05 11:51] VITALS: BP 116/68; PULSE 62; RESP 18; TEMP 36.4; O2SAT 97
[2021-02-05] MEDS: vancomycin HCL 1,500 MG in 0.9 % Sodium Chloride 500 ML 333.33 MG IV ×2 (13:12→22:49)
[2021-02-05] MEDS: Nicotine Polacrilex 2 MG GUM BUCCAL ×2 (14:30→23:01)
--- NOTE | 2021-02-05 14:42 | P.PNIM_ITS ---
Subjective Subjective Date of Service: 02/05/21 <HAMMAD De Guzman - Last Filed: 02/05/21 14:48> 02/20/21 <Caty Piper MD - Last Filed: 02/20/21 11:37> Interval History: seen and examined this morning having some pain in left arm denies fever or chills <HAMMAD De Guzman - Last Filed: 02/05/21 14:48> Review of Systems Review of Systems: Yes all other systems are reviewed and are negative <HAMMAD De Guzman - Last Filed: 02/05/21 14:48> Constitutional Constitutional: Denies chills and Denies fever(s) <HAMMAD De Guzman - Last Filed: 02/05/21 14:48> Cardiovascular Cardiovascular: Denies chest pain <HAMMAD De Guzman Last Filed: 02/05/21 14:48> Respiratory Respiratory: Denies cough <HAMMAD De Guzman - Last Filed: 02/05/21 14:48> Gastrointestinal Gastrointestinal: Denies abdominal pain <HAMMAD De Guzman Last Filed: 02/05/21 14:48> Physical Exam Vital Signs: Vital Signs: Last Vital Signs Temp 97.6 F 02/05/21 11:51 Pulse 62 02/05/21 11:51 Resp 18 02/05/21 11:51 BP 116/68 02/05/21 11:51 Pulse Ox 97 02/05/21 11:51 Body Mass Index 35.2 <HAMMAD De Guzman - Last Filed: 02/05/21 14:48> Const: Nutritional Appearance: well nourished <HAMMAD De Guzman Last Filed: 02/05/21 14:48> Orientation/consciousness: patient oriented x3 <HAMMAD De Guzman Last Filed: 02/05/21 14:48> HENMT: Head: Yes normocephalic and Yes atraumatic <HAMMAD De Guzman Last Filed: 02/05/21 14:48> Eyes: Sclerae: sclerae normal <HAMMAD De Guzman Last Filed: 02/05/21 14:48> Pupils: Equal, round and reactive pupils present <HAMMAD De Guzman Last Filed: 02/05/21 14:48> EOM: EOMs intact bilaterally <HAMMAD De Guzman Last Filed: 02/05/21 14:48> Resp: Effort & Inspection: normal respiratory effort and no respiratory distress <HAMMAD De Guzman Last Filed: 02/05/21 14:48> Cardio: Rate: regular rate <HAMMAD De Guzman Last Filed: 02/05/21 14:48> Rhythm: regular rhythm <HAMMAD De Guzman Last Filed: 02/05/21 14:48> GI: Palpation (GI): Soft to palpation and nontender <HAMMAD De Guzman Last Filed: 02/05/21 14:48> Neuro: General: patient oriented x3 <HAMMAD De Guzman Last Filed: 02/05/21 14:48> Cranial nerves: Yes CN's II-XII intact bilaterally, Yes Equal, round and r eactive pupils present and Yes Bilaterally intact EOM present <HAMMAD De Guzman Last Filed: 02/05/21 14:48> Extrem: Other: edema left upper extremity with erythema; AC fossa s/p I&D draining <HAMMAD De Guzman Last Filed: 02/05/21 14:48> Objective Data Current Medications Generic Name Dose Route Start Last Admin Trade Name Freq PRN Reason Stop Dose Admin Acetaminophen 650 mg 02/05/21 00:50 Acetaminophen 325 Mg Tablet PO Q6H PRN Pain, Mild (Pain Scale 1-3) Heparin Sodium (Porcine) 5,000 unit 02/05/21 01:00 02/05/21 11:33 Heparin Sodium,Porcine 5,000 Unit/Ml Vial SUBCUT 5,000 unit Q8H GUADALUPE Administration Piperacillin Sod/Tazobactam 50 mls @ 100 mls/hr 02/05/21 04:00 02/05/21 12:16 Sod 3.375 gm/ Sodium Chloride IV Infused Q6H GUADALUPE Infusion Sodium Chloride 1,000 mls @ 100 mls/hr 02/05/21 01:00 02/05/21 11:32 Ns IVCONT 100 mls/hr .Q10H GUADALUPE Administration Vancomycin HCl 1,500 mg/ 500 mls @ 333.333 mls/hr 02/05/21 11:00 02/05/21 13:12 Sodium Chloride IV 333.33 mls/hr Q12H GUADALUPE Administration Melatonin 6 mg 02/05/21 00:50 Melatonin 3 Mg Tablet PO BEDTIME PRN Insomnia Methadone HCl 80 mg 02/05/21 10:15 02/05/21 11:33 Methadone Hcl 1 Mg/0.1 Ml Oral.Conc PO 80 mg DAILY GUADALUPE Administration Nicotine Polacrilex 2 mg 02/05/21 11:54 02/05/21 14:30 Nicotine Polacrilex 2 Mg Gum BUCCAL 2 mg Q2H PRN Administration Nicotine Cravings Oxycodone HCl 5 mg 02/05/21 00:50 Oxycodone Hcl Immed Release 5 Mg Tablet PO Q6H PRN Pain, Severe (Pain Scale 7-10) Pharmacy Consult 1 each 02/05/21 00:47 Consult Rx Vancomycin Dosing MISCELLANE DAILY PRN Consult order Senna 17.2 mg 02/05/21 00:50 Sennosides 8.6 Mg Tablet PO BEDTIME PRN Constipation Sodium Chloride 3 ml 02/05/21 08:00 02/05/21 10:05 0.9 % Sodium Chloride Flush 3 Ml Syringe IVFLUSH Not Given QSHIFT [facility] <HAMMAD De Guzman - Last Filed: 02/05/21 14:48> Labs CBC & Chem 7: : 02/06/21 05:52 02/06/21 05:52 <HAMMAD De Guzman - Last Filed: 02/05/21 14:48> Labs: Laboratory Results - last 24 hr 02/04/21 02/04/21 02/04/21 20:47 20:51 20:51 MCV 86.0 MCH 29.4 MCHC 34.2 RDW 14.0 Plt Count 224 MPV 9.1 L Immature Gran % (Auto) 0.4 Neut % (Auto) 82.5 H Lymph % (Auto) 11.5 L Butts % (Auto) 5.2 Eos % (Auto) 0.1 Baso % (Auto) 0.3 Lymph # (Auto) 1.9 Butts # (Auto) 0.9 Eos # (Auto) 0.0 Baso # (Auto) 0.1 Abs Immat Gran (auto) 0.07 H Absolute Neuts (auto) 13.8 H Absolute Nucleated RBC 0.000 Nucleated RBC % (auto) 0.0 Anion Gap 14 Estim Creat Clear Calc 153.4 Estimated GFR > 60 Random Glucose 105 Lactic Acid 0.8 Calcium 9.0 Urine Color Urine Appearance Urine pH Ur Specific [place] Urine Protein Urine Glucose (UA) Urine Ketones Urine Blood Urine Nitrite Ur Leukocyte Esterase Urine Opiates Screen Ur Barbiturates Screen Ur Phencyclidine Scrn Ur Amphetamines Screen U Benzodiazepines Scrn Urine Cocaine Screen U Marijuana (THC) Screen Ethyl Alcohol COVID-19 (JANEEN) COVID-19 [employer] 02/04/21 02/04/21 02/04/21 20:51 21:50 21:50 MCV MCH MCHC RDW Plt Count MPV Immature Gran % (Auto) Neut % (Auto) Lymph % (Auto) Butts % (Auto) Eos % (Auto) Baso % (Auto) Lymph # (Auto) Butts # (Auto) Eos # (Auto) Baso # (Auto) Abs Immat Gran (auto) Absolute Neuts (auto) Absolute Nucleated RBC Nucleated RBC % (auto) Anion Gap Estim Creat Clear Calc Estimated GFR Random Glucose Lactic Acid Calcium Urine Color YELLOW Urine Appearance CLEAR Urine pH 6.0 Ur Specific [place] 1.010 Urine Protein NEG Urine Glucose (UA) NEG Urine Ketones NEG Urine Blood NEG Urine Nitrite NEG Ur Leukocyte Esterase NEG Urine Opiates Screen POSITIVE H Ur Barbiturates Screen Not Detected Ur Phencyclidine Scrn Not Detected Ur Amphetamines Screen Not Detected U Benzodiazepines Scrn Not Detected Urine Cocaine Screen POSITIVE H U Marijuana (THC) Screen Not Detected Ethyl Alcohol < 10 COVID-19 (JANEEN) COVID-19 [employer] 02/04/21 02/04/21 02/05/21 22:20 22:20 07:26 MCV 87.1 MCH 28.9 MCHC 33.2 RDW 14.2 Plt Count 213 MPV 9.7 Immature Gran % (Auto) 0.4 Neut % (Auto) 65.4 Lymph % (Auto) 24.8 Butts % (Auto) 7.6 Eos % (Auto) 1.4 Baso % (Auto) 0.4 Lymph # (Auto) 3.5 Butts # (Auto) 1.1 Eos # (Auto) 0.2 Baso # (Auto) 0.1 Abs Immat Gran (auto) 0.05 H Absolute Neuts (auto) 9.3 H Absolute Nucleated RBC 0.000 Nucleated RBC % (auto) 0.0 Anion Gap Estim Creat Clear Calc Estimated GFR Random Glucose Lactic Acid 0.7 Calcium Urine Color Urine Appearance Urine pH Ur Specific [place] Urine Protein Urine Glucose (UA) Urine Ketones Urine Blood Urine Nitrite Ur Leukocyte Esterase Urine Opiates Screen Ur Barbiturates Screen Ur Phencyclidine Scrn Ur Amphetamines Screen U Benzodiazepines Scrn Urine Cocaine Screen U Marijuana (THC) Screen Ethyl Alcohol COVID-19 (JANEEN) Negative COVID-19 Clin Com See Note 02/05/21 07:26 MCV MCH MCHC RDW Plt Count MPV Immature Gran % (Auto) Neut % (Auto) Lymph % (Auto) Butts % (Auto) Eos % (Auto) Baso % (Auto) Lymph # (Auto) Butts # (Auto) Eos # (Auto) Baso # (Auto) Abs Immat Gran (auto) Absolute Neuts (auto) Absolute Nucleated RBC Nucleated RBC % (auto) Anion Gap 11 L Estim Creat Clear Calc 179.0 Estimated GFR > 60 Random Glucose 93 Lactic Acid Calcium 8.4 D Urine Color Urine Appearance Urine pH Ur Specific [place] Urine Protein Urine Glucose (UA) Urine Ketones Urine Blood Urine Nitrite Ur Leukocyte Esterase Urine Opiates Screen Ur Barbiturates Screen Ur Phencyclidine Scrn Ur Amphetamines Screen U Benzodiazepines Scrn Urine Cocaine Screen U Marijuana (THC) Screen Ethyl Alcohol COVID-19 (JANEEN) COVID-19 Clin Com <HAMMAD De Guzman - Last Filed: 02/05/21 14:48> Assessment and Plan (1) Cellulitis: Status: Acute <HAMMAD De Guzman - Last Filed: 02/05/21 14:48> (2) Abscess of skin or subcutaneous tissue: Status: Acute <HAMMAD De Guzman - Last Filed: 02/05/21 14:48> Assessment and Plan: This is a 40-year-old male with a past medical history of substance abuse, opiate dependence on methadone presented to the hospital with a chief complaint of left forearm pain redness and swelling, noted to have cellulitis/a bscess.? Status post I&D in the ER.? Admitted for further management. Left forearm cellulitis/abscess:? s/p I&D in ED US negative for DVT -Continue IV vancomycin and Zosyn, started 02/04 -Follow up blood cultures. -Pain control -surgery following, no further I&D at this time. -ID consult pending. History of opiate dependence:? -continue home dose of methadone - Addiction Medicine. tobacco dependence -smoking cessation advised -NRT DVT prophylaxis:? Subcu heparin Code status:? Full code Attending: Dr. Baugh <HAMMAD De Guzman - Last Filed: 02/05/21 14:48> Quality Stroke Does the patient have a stroke diagnosis?: No <HAMMAD De Guzman - Last Filed: 02/05/21 14:48> VTE Prior VTE?: No <HAMMAD De Guzman - Last Filed: 02/05/21 14:48> VTE Risk Level:: Medical - moderate - high <HAMMAD De Guzman - Last Filed: 02/05/21 14:48> VTE Device Contraindication: Treatment Not Indicated <HAMMAD De Guzman - Last Filed: 02/05/21 14:48> VTE Drug Contraindication: N/A - Med Ordered <HAMMAD De Guzman - Last Filed: 02/05/21 14:48>
[2021-02-05 15:14] VITALS: BP 126/61; PULSE 63; RESP 18; TEMP 36.4; O2SAT 95
[2021-02-05] MEDS: Acetaminophen 325 MG TABLET 650 MG PO (16:20)
[2021-02-05] MEDS: oxyCODONE HCl Immed Release 5 MG TABLET PO (16:20)
[2021-02-05 19:29] VITALS: BP 131/64; PULSE 63; RESP 16; TEMP 36; O2SAT 97
--- NOTE | 2021-02-05 21:49 | W.PM.IDCN ---
History of Present Illness Data of Consult Service Date: 02/05/21 Requesting physician: Lilian Bear Primary Care Provider: Unknown Physician HPI Reason for consult: arm swelling He presents to hospital with left arm swelling and pain U/S shows left antecubital abscess undergoes I and D per Surgery He has cultures pending He uses IV drugs His Hepatitis C and HIV status unknown. Review of Systems Review of Systems: Yes all other systems are reviewed and are negative PMFSH Past Medical History Medical History Asthma Drug abuse and dependence Hypothyroid Methadone maintenance therapy patient No known health problems Family History Family history: reviewed and not pertinent Social History Social History Household Members: None Housing: Homeless Do you presently have visiting nurse or other home services: No Alcohol intake: unknown Patient Tobacco Use Status: Current everyday Tobacco user Tobacco use type: Cigarette Cigarette Packs Per Day: 1 Cigarettes Per Day: 20.0 Years Smoked: 25 e-Cigarette/Vaping Use: Never Used Second Hand Smoke Exposure: Yes Substance Use Type: Crack/Cocaine and Heroin service: No Current occupational status: employed Meds Allergies Allergy/AdvReac Type Severity Reaction Status Date / Time No Known Allergies Allergy Verified 02/04/21 20:10 [No Known Allergies*] Active Medications: Current Medications Generic Name Dose Route Start Last Admin Trade Name Freq PRN Reason Stop Dose Admin Acetaminophen 650 mg 02/05/21 00:50 02/05/21 16:20 Acetaminophen 325 Mg Tablet PO 650 mg Q6H PRN Administration Pain, Mild (Pain Scale 1-3) Heparin Sodium (Porcine) 5,000 unit 02/05/21 01:00 02/05/21 16:17 Heparin Sodium,Porcine 5,000 Unit/Ml Vial SUBCUT 5,000 unit Q8H GUADALUPE Administration Piperacillin Sod/Tazobactam 50 mls @ 100 mls/hr 02/05/21 04:00 02/05/21 21:10 Sod 3.375 gm/ Sodium Chloride IV Infused Q6H GUADALUPE Infusion Sodium Chloride 1,000 mls @ 100 mls/hr 02/05/21 01:00 02/05/21 21:20 Ns IVCONT Not Given .Q10H GUADALUPE Vancomycin HCl 1,500 mg/ 500 mls @ 333.333 mls/hr 02/05/21 11:00 02/05/21 15:14 Sodium Chloride IV Infused Q12H GUADALUPE Infusion Melatonin 6 mg 02/05/21 00:50 Melatonin 3 Mg Tablet PO BEDTIME PRN Insomnia Methadone HCl 80 mg 02/05/21 10:15 02/05/21 11:33 Methadone Hcl 1 Mg/0.1 Ml Oral.Conc PO 80 mg DAILY GUADALUPE Administration Nicotine Polacrilex 2 mg 02/05/21 11:54 02/05/21 14:30 Nicotine Polacrilex 2 Mg Gum BUCCAL 2 mg Q2H PRN Administration Nicotine Cravings Oxycodone HCl 5 mg 02/05/21 00:50 02/05/21 16:20 Oxycodone Hcl Immed Release 5 Mg Tablet PO 5 mg Q6H PRN Administration Pain, Severe (Pain Scale 7-10) Pharmacy Consult 1 each 02/05/21 00:47 Consult Rx Vancomycin Dosing MISCELLANE DAILY PRN Consult order Senna 17.2 mg 02/05/21 00:50 Sennosides 8.6 Mg Tablet PO BEDTIME PRN Constipation Sodium Chloride 3 ml 02/05/21 08:00 02/05/21 20:25 0.9 % Sodium Chloride Flush 3 Ml Syringe IVFLUSH Not Given QSHIFT [facility] Home Medications Medication Instructions Recorded Confirmed Last Taken Type albuterol sulfate 90 mcg/actuation 2 puff PO Q4H PRN 02/05/21 02/05/21 Unknown History aerosol inhaler (ProAir HFA) methadone 80 mg PO DAILY 02/05/21 02/05/21 Unknown History Physical Exam Vital Signs: Vital Signs: Last Vital Signs Temp 96.8 F 02/05/21 19:29 Pulse 63 02/05/21 19:29 Resp 16 02/05/21 19:29 BP 131/64 02/05/21 19:29 Pulse Ox 97 02/05/21 19:29 Body Mass Index 35.2 Const: General: cooperative HENMT: Head: Yes normal to inspection Mouth: Normal oral and palatal mucosa present Eyes: General: appearance normal, both eyes and all related structures Resp: Effort & Inspection: normal respiratory effort Cardio: Rate: regular rate Rhythm: regular rhythm GI: Palpation (GI): Soft to palpation and nontender Extrem: Other: swollen left arm and elbow Results Labs CBC & Chem 7: 02/06/21 05:52 02/06/21 05:52 Labs: Short CBC 02/05/21 Range/Units 07:26 WBC 14.3 H (4.8-10.8) X10*3/uL Hgb 12.3 L (14.0-18.0) g/dl Hct 37.1 L (42-52) % Plt Count 213 (160-400) X10*3/uL BMP 02/05/21 07:26 Sodium 139 Potassium 3.6 Chloride 105 Carbon Dioxide 27 BUN 10 Creatinine 0.72 Calcium 8.4 D Urine 02/04/21 Range/Units 21:50 Urine Color YELLOW Urine Appearance CLEAR Urine pH 6.0 (5.0-8.0) Ur Specific [place] 1.010 (1.005-1.025) Urine Protein NEG (NEG-TRACE) MG/DL Urine Glucose (UA) NEG (NEG) MG/DL Assessment and Plan (1) Cellulitis: Qualifiers: Laterality: left Site of cellulitis of extremity: upper extremity Status: Acute There is concern over MRSA,Pseudomonas with IV injection He has immune suppression possible Agree Zosyn and Vancomycin for now Check cultures tomorrow Check HIV and Hepatitis C (2) Abscess of skin or subcutaneous tissue: Qualifiers: Laterality: left Site of cutaneous abscess of extremity: upper extremity Status: Acute
[2021-02-05 23:26] VITALS: BP 125/66; PULSE 77; RESP 18; TEMP 36.2; O2SAT 95
[2021-02-06] MEDS: Heparin Sodium,Porcine 5,000 UNIT/ML VIAL 5000 UNIT SUBCUT ×2 (01:40→08:27)
[2021-02-06 04:00] VITALS: BP 133/77; PULSE 59; RESP 18; TEMP 36.2; O2SAT 97
[2021-02-06] MEDS: 0.9 % Sodium Chloride 1,000 ML 100 ML IVCONT (04:33)
[2021-02-06] MEDS: Piperacillin Sodium/Tazobactam 3.375 GM in 0.9 % Sodium Chloride 50 ML IV ×2 (05:44→08:28)
[2021-02-06 07:05] LABS: Hemoglobin 12.1 g/dl (14.0-18.0); Mean Corpuscular HGB Conc 32.7 g/dl (31.0-36.0); Mean Corpuscular Hemoglobin 28.8 pg (27.0-33.0); Mean Corpuscular Volume 88.1 fL (80-98); Mean Platelet Volume 10.5 fL (9.4-12.4); Platelet Count 214 X10*3/uL (160-400); Red Cell Distribution Width 14.4 % (11.0-16.0); White Blood Count 9.5 X10*3/uL (4.8-10.8)
[2021-02-06 07:37] LABS: Anion Gap 13 (12-20); Blood Urea Nitrogen 11 mg/dL (9-16); Calcium 8.3 mg/dL (8.4-10.2); Carbon Dioxide 24 mmol/L (22-29); Chloride 106 mmol/L (96-108); Creatinine Clr Calc Pharmacy 176.5; Estimated Glomerular Filt Rate > 60; Glucose Random 87 mg/dL (60-115); Potassium 4.2 mmol/L (3.3-5.1); Sodium 139 mmol/L (135-145)
--- NOTE | 2021-02-06 07:44 | PM.PNGS ---
Subjective Subjective Date of Service: 02/06/21 Interval history: less soreness in left arm, draining pus Physical Exam Vital Signs: Vital Signs: Last Vital Signs Temp 97.1 F 02/06/21 04:00 Pulse 59 02/06/21 04:00 Resp 18 02/06/21 04:00 BP 133/77 02/06/21 04:00 Pulse Ox 97 02/06/21 04:00 Body Mass Index 35.2 Const: General: comfortable Limitations: no limitations Resp: Effort & Inspection: normal respiratory effort Extrem: Other: left arm incision open and draining, decreased redness, some distal swelling Procedures Date of Service Date of Service: 02/06/21 Progress Note: A&P Assessment and plan (1) Abscess of skin or subcutaneous tissue: Status: Acute Assessment and Plan: Improving abscess left arm, improving WBC. COntinue local wound care and antibiotics. Fall Risk Details Current Medications: Current Medications Generic Name Dose Route Start Last Admin Trade Name Freq PRN Reason Stop Dose Admin Acetaminophen 650 mg 02/05/21 00:50 02/05/21 16:20 Acetaminophen 325 Mg Tablet PO 650 mg Q6H PRN Administration Pain, Mild (Pain Scale 1-3) Heparin Sodium (Porcine) 5,000 unit 02/05/21 01:00 02/06/21 01:40 Heparin Sodium,Porcine 5,000 Unit/Ml Vial SUBCUT 5,000 unit Q8H GUADALUPE Administration Piperacillin Sod/Tazobactam 50 mls @ 100 mls/hr 02/05/21 04:00 02/06/21 06:40 Sod 3.375 gm/ Sodium Chloride IV Infused Q6H GUADALUPE Infusion Sodium Chloride 1,000 mls @ 100 mls/hr 02/05/21 01:00 02/06/21 05:47 Ns IVCONT Not Given .Q10H GUADALUPE Vancomycin HCl 1,500 mg/ 500 mls @ 333.333 mls/hr 02/05/21 11:00 02/06/21 00:32 Sodium Chloride IV Infused Q12H GUADALUPE Infusion Melatonin 6 mg 02/05/21 00:50 Melatonin 3 Mg Tablet PO BEDTIME PRN Insomnia Methadone HCl 80 mg 02/05/21 10:15 02/05/21 11:33 Methadone Hcl 1 Mg/0.1 Ml Oral.Conc PO 80 mg DAILY GUADALUPE Administration Nicotine Polacrilex 2 mg 02/05/21 11:54 02/05/21 23:01 Nicotine Polacrilex 2 Mg Gum BUCCAL 2 mg Q2H PRN Administration Nicotine Cravings Oxycodone HCl 5 mg 02/05/21 00:50 02/05/21 16:20 Oxycodone Hcl Immed Release 5 Mg Tablet PO 5 mg Q6H PRN Administration Pain, Severe (Pain Scale 7-10) Pharmacy Consult 1 each 02/05/21 00:47 Consult Rx Vancomycin Dosing MISCELLANE DAILY PRN Consult order Senna 17.2 mg 02/05/21 00:50 Sennosides 8.6 Mg Tablet PO BEDTIME PRN Constipation Sodium Chloride 3 ml 02/05/21 08:00 02/05/21 20:25 0.9 % Sodium Chloride Flush 3 Ml Syringe IVFLUSH Not Given QSHIFT GUADALUPE Time Spent With Patient Time: Total time spent is greater than 50% in coordination of care (as documented) at patient's floor/unit and/or counseling patient: Time with patient: 15 - 24 minutes Quality Stroke Does the patient have a stroke diagnosis?: No VTE Prior VTE?: No VTE Risk Level:: Medical - moderate - high VTE Device Contraindication: Treatment Not Indicated VTE Drug Contraindication: N/A - Med Ordered
[2021-02-06 08:16] LABS: HIV AB/AG Nonreactive (Nonreactive); HIV Num 1 0.05 S/CO (0.00-0.99); ~HepC Num1 16.05 S/CO (0.00-0.79); ~Hepatitis C Antibody Reactive (Nonreactive)
[2021-02-06] MEDS: Acetaminophen 325 MG TABLET 650 MG PO (08:27)
[2021-02-06] MEDS: oxyCODONE HCl Immed Release 5 MG TABLET PO (08:27)
[2021-02-06 08:35] VITALS: BP 134/66; PULSE 70; RESP 18; TEMP 36.2; O2SAT 98
--- NOTE | 2021-02-06 09:28 | MHC.CM.PN ---
PATIENT STATES THAT HE HAS NOT BEEN VACCINATED AGAINST COVID-19 BUT IS INTERESTED. PATIENT INFORMED OF CLINICS AT [facility] FOR THIS PURPOSE. PATIENT DOES LIVE WITH HIS , BUT IS PLANNING TO MOVE TO [facility] ON TUESDAY OF NEXT WEEK. PATIENT RELIES ON PUBLIC TRANSPORT OR THE ASSIST OF OTHERS TO GET WHERE HE NEEDS TO GO. HE IS HOPING TO BE ABLE TO DC WITH NO NEED FOR IV ABX. PCP IS DR MONTESINOS (ACCORDING TO REGISTRATION)
[2021-02-06 11:07] LABS: Vancomycin Trough 9.8 mcg/mL (10.0-20.0)
[2021-02-06 11:25] VITALS: BP 173/84; PULSE 51; RESP 18; TEMP 36.9; O2SAT 99
[2021-02-06] MEDS: vancomycin HCL 1,500 MG in 0.9 % Sodium Chloride 500 ML 333.33 MG IV (11:58)
[2021-02-06] MEDS: Nicotine Polacrilex 2 MG GUM BUCCAL (11:58)
--- NOTE | 2021-02-06 12:29 | PM.EVENT ---
Event Note Date of Service: 02/06/21 Event Note: would give po Augmentin and Doxycycline for 10 days as outpatient if cultures remain negative
--- NOTE | 2021-02-06 13:23 | PM.DS ---
DS: Providers Provider Date of Service: 02/06/21 Date of admission: 02/05/21 00:50 Primary care physician: Unknown Physician Consults: 02/05/21 00:47 Consult to General Surgery Routine Consulting Provider: Edgard Patel Reason for consultation: forearm cellulitis/abscess Consult to Infectious Diseases Routine Consulting Provider: Malinda Murphy Reason for consultation: forearm cellulitis/abscess 02/05/21 01:05 Addiction Medicine Routine Consulting Provider: Emily Arroyo Reason for consultation: pt on methadone DS: Diagnosis Discharge Diagnosis (1) Abscess of skin or subcutaneous tissue: Status: Acute DS: Medications Discharge Medications Home Medications: Home Medications Medication Instructions Recorded Confirmed albuterol sulfate 90 mcg/actuation 2 puff PO Q4H PRN 02/05/21 02/05/21 aerosol inhaler (ProAir HFA) methadone 80 mg PO DAILY 02/05/21 02/05/21 Previous Rx's Medication Instructions Recorded amoxicillin 875 mg-potassium 1 tab PO Q12H #20 tab 02/06/21 clavulanate 125 mg tablet (Augmentin) doxycycline hyclate 100 mg tablet 100 mg PO BID #20 tab 02/06/21 DS: Summary Hospital Course Hospital Course: Final discharge diagnosis 1. Left forearm cellulitis and abscess 2. Active intravenous drug use, chronic opiate dependence on methadone 3. Hepatitis-C positive Patient presented to the hospital with complaints of left forearm pain swelling and tenderness. He was evaluated in the emergency room and found to have an abscess along with cellulitis. He underwent bedside I and D in the emergency room and subsequently was admitted for further treatment. He was treated with broad-spectrum IV vancomycin and Zosyn. He had blood cultures collected which are negative at the time of discharge. He also had hepatitis C and HIV serologies tested, HIV is negative but hep C is positive for which he will need outpatient follow-up. On the day of discharge, the patient was recommended to stay an additional 24 hours for IV antibiotics, however he declined as he had other obligations so a joint decision was made to discharge him on 10 more days of oral Augmentin and doxycycline. He has been informed that should he have any worsening of his symptoms which include swelling, redness, drainage or systemic signs such as fevers or chills he should return to the emergency room. Patient is to follow up in the General Surgery clinic in 1 week. Time Spent with Patient Time attestation: Total time spent providing and/or coordinating discharge services: Discharge coordination time: Greater than 30 minutes Quality: Stroke Does the patient have a stroke diagnosis?: No Physical Exam Vital Signs: Vital Signs: Last Vital Signs Temp 98.5 F 02/06/21 11:25 Pulse 51 02/06/21 11:25 Resp 18 02/06/21 11:25 BP 173/84 H 02/06/21 11:25 Pulse Ox 99 02/06/21 11:25 Body Mass Index 35.2 Const: Other: General - no acute distress, appears comfortable Cardiovascular - regular rate and rhythm, S1-S2 Lungs - normal respiratory effort, clear to auscultation bilaterally, no wheezing Abdomen - soft, nontender, no rebound or guarding Extremities - LUE swelling and erythema improved Neuro - awake and alert, no focal deficits DS: Data Data Completed and Pending Labs on day of discharge: Laboratory Results - last 24 hr 02/05/21 02/06/21 02/06/21 22:12 05:52 05:52 WBC 9.5 RBC 4.20 L Hgb 12.1 L Hct 37.0 L MCV 88.1 MCH 28.8 MCHC 32.7 RDW 14.4 Plt Count 214 MPV 10.5 Absolute Nucleated RBC 0.000 Nucleated RBC % (auto) 0.0 Sodium 139 Potassium 4.2 Chloride 106 Carbon Dioxide 24 Anion Gap 13 BUN 11 Creatinine 0.73 Estim Creat Clear Calc 176.5 Estimated GFR > 60 Random Glucose 87 Calcium 8.3 L Vancomycin Trough Hepatitis C Ab (EIA) Reactive H HIV 1&2 Ab/P24 Ag 4thGn Nonreactive 02/06/21 09:48 WBC RBC Hgb Hct MCV MCH MCHC RDW Plt Count MPV Absolute Nucleated RBC Nucleated RBC % (auto) Sodium Potassium Chloride Carbon Dioxide Anion Gap BUN Creatinine Estim Creat Clear Calc Estimated GFR Random Glucose Calcium Vancomycin Trough 9.8 L Hepatitis C Ab (EIA) HIV 1&2 Ab/P24 Ag 4thGn Preliminary micro results at discharge 02/04/21 22:20 Blood Culture - Preliminary Blood - Venous No growth after 24 hours. 02/04/21 22:20 Blood Culture - Preliminary Blood - Venous No growth after 24 hours. 02/04/21 20:51 Blood Culture - Preliminary Blood - Venous No growth after 24 hours. 02/04/21 20:43 Blood Culture - Preliminary Blood - Venous No growth after 24 hours. Discharge Plan Discharge Patient Disposition: Home Health Service Discharge Diagnosis: Cellulitis / abscess Referrals: Edgard Patel MD [Physician] - 1 Week Physician,Unknown [Primary Care Provider] - 1 Week Discharge Medications: New amoxicillin-pot clavulanate [Augmentin] 875-125 mg tablet 1 tab PO Q12H Qty: 20 RF: 0 doxycycline hyclate 100 mg tablet 100 mg PO BID Qty: 20 RF: 0 Continued methadone 80 mg PO DAILY RF: 0 albuterol sulfate [ProAir HFA] 90 mcg/actuation HFA aerosol inhaler 2 puff PO Q4H PRN (Reason: wheezing) RF: 0 Discontinued cefuroxime axetil 500 mg tablet 500 mg PO Q12H 7 Days Qty: 14 RF: 0 azithromycin [Zithromax Z-Chris] 250 mg tablet See Rx Instructions .ROUTE .COMPLEX Qty: 6 RF: 0 Discharge Orders: Discharge Order (Routine); Ordered 02/06/21 Ordered By: Bruno Chaves Diet: advance to usual diet Activity on Discharge: As tolerated Stand Alone Forms: Patient Portal Discharge page Care Plan Goals: To stay healthy and out of the hospital. Health Concerns: Cellulitis / Abscess Hep C positive Plan of Treatment: Cellulitis / Abscess - Take antibiotics for 10 more days, follow up with Dr. Patel in the General Surgery clinic next week Hep C positive - follow up with your PCP for treatment Assessment: 40 yo M admitted for cellulitis / abscess. Treated with IV zosyn/vancomycin, will be d/c on 10 days of oral meds. To follow up with Gen surg clinic.
--- NOTE | 2021-02-06 14:51 | MHC.CM.PN ---
PATIENT IS DISCHARGED HOME WITH NO NEED FOR SERVICES HE HAS DRESSINGS FOR HIS WOUND CAR AND IS AWARE HE WILL NEED TO PURCHASE MORE TO PROTECT HIS ARM. RN AWARE OF PLAN.
--- NOTE | 2021-02-10 03:38 | PC.NURSE ---
Edgard from the lab called me on blood culture results. Reported to Dr. Piper at 0335, 02/10/2021, gram negative rods one bottle one set collected on .
== END 2021-02-06 15:17 | disposition home or self-care (01) | DRG 383 ==
LOC: HO.ED 23:19 → HO.EDOVER 02-05 00:56 → HO.S3 02-05 08:23
PROVIDERS: Internal Medicine; Physician Assistant Medical; Admitting Provider Hospitalist; Emergency Provider Emergency Medicine; PCP Internal Medicine; Visit Provider Family Medicine
DX: L02.414 Cutaneous abscess of left upper limb (principal); F11.20 Opioid dependence, uncomplicated; L03.114 Cellulitis of left upper limb; B19.20 Unspecified viral hepatitis C without hepatic coma; E03.9 Hypothyroidism, unspecified; F17.210 Nicotine dependence, cigarettes, uncomplicated; Z20.822 Contact with and (suspected) exposure to COVID-19; Z71.6 Tobacco abuse counseling; Z79.899 Other long term (current) drug therapy
CPT/HCPCS: 36415; 73070; 80048; 80202; 80307; 81003; 82077; 83605; 85025; 85027; 86803; 87040; 87077; 87147; 87205; 87389; 87635; 93971; 99285; J2543; J3370

== ENCOUNTER 2021-06-23 21:10 | Emergency (ER) | payer OTHER, SELFPAY ==
[2021-06-23 21:27] VITALS: BP 128/68; PULSE 75; RESP 16; O2SAT 98; BMI 27.1
[2021-06-23 21:50] LABS: COVID-19 Test Negative (Negative)
--- NOTE | 2021-06-23 23:12 | ED.GENADULT ---
HPI - General Adult General Chief complaint: General Medical Stated complaint: sore throat body aches Time Seen by Provider: 06/23/21 23:12 Source: patient Mode of arrival: ambulatory History of Present Illness HPI narrative: 40-year-old male with a past medical history of asthma substance abuse, presenting to the ED complaining of body aches, myalgias, and headache x2 days. Admits son at home is COVID-19 positive. Denies fever, chills, ear pain, sore throat, cough, chest pain, shortness of breath Onset (ago): day(s) Related Data Home Medications Medication Instructions Recorded Confirmed albuterol sulfate 90 mcg/actuation 2 puff PO Q4H PRN 02/05/21 02/05/21 aerosol inhaler (ProAir HFA) methadone 80 mg PO DAILY 02/05/21 02/05/21 Previous Rx's Medication Instructions Recorded amoxicillin 875 mg-potassium 1 tab PO Q12H #20 tab 02/06/21 clavulanate 125 mg tablet (Augmentin) doxycycline hyclate 100 mg tablet 100 mg PO BID #20 tab 02/06/21 Allergies Allergy/AdvReac Type Severity Reaction Status Date / Time No Known Allergies Allergy Verified 02/04/21 20:10 [No Known Allergies*] Review of Systems Review of Systems: Constitutional: No Fever, No Chills ENT/Mouth: No Ear Pain, No Nasal Congestion, No Sinus Pain, No Hoarseness, No sore throat, No Rhinorrhea, No Swallowing Difficulty Cardiovascular: No Chest Pain, No SOB Respiratory: No Cough, No Sputum, No Wheezing Gastrointestinal: No Nausea, No Vomiting, No Diarrhea, No Constipation, No Abdominal pain Musculoskeletal: No joint pain, + Myalgias, No Joint Swelling Skin: No Skin Lesions, No rash Neuro: No Weakness, +headache Yes all other systems are reviewed and are negative PMFSH Past Medical History Attestation statement: The following information was validated with the patient. Medical History Asthma Drug abuse and dependence Hypothyroid Methadone maintenance therapy patient No known health problems Social History Social History Household Members: None Housing: Homeless Do you presently have visiting nurse or other home services: No Alcohol intake: unknown Patient Tobacco Use Status: Current everyday Tobacco user Tobacco use type: Cigarette Cigarette Packs Per Day: 1 Cigarettes Per Day: 20.0 Years Smoked: 25 e-Cigarette/Vaping Use: Never Used Second Hand Smoke Exposure: Yes Substance Use Type: Crack/Cocaine and Heroin Advance Directives: No Advance Directives Information Provided: Yes service: No Current occupational status: employed Physical Exam Vital Signs: Vital Signs: Last Vital Signs Pulse 75 06/23/21 21:27 Resp 16 06/23/21 21:27 BP 128/68 06/23/21 21:27 Pulse Ox 98 06/23/21 21:27 BMI result Body Mass Index 27.1 Const: General: cooperative, healthy appearing and no acute distress Orientation/consciousness: patient oriented x3 Limitations: no limitations HENMT: Head: Yes normal to inspection Ears: hearing grossly normal bilaterally General nose exam: Normal external nose present Face and sinus: Yes normal facial exam Eyes: General: appearance normal, both eyes and all related structures EOM: EOMs intact bilaterally Neck: Neck: Yes normal visual inspection and Yes no meningeal signs Resp: Effort & Inspection: normal respiratory effort and no respiratory distress Auscultation: clear to auscultation bilaterally, no rales, no rhonchi and no wheezes Cardio: Rate: regular rate Heart sounds: S1 normal heart sound present and S2 normal heart sound present Skin: Rashes: no rashes Wounds: no wounds Neuro: General: patient oriented x3 and no meningeal signs Gait exam (Neuro): Normal gait present Extrem: General: Yes normal to inspection Medical Decision Making MDM Narrative Medical decision making narrative: 40-year-old male with a past medical history of asthma substance abuse, presenting to the ED complaining of body aches, myalgias, and headache x2 days. On exam vital signs stable, NAD, lungs CTA. Concern for viral syndrome/COVID-19 Plan: COVID-19 testing Medical Records Medical records reviewed: Yes I reviewed the patient's medical records. Lab Data Lab results reviewed: Yes I reviewed the patient's lab results. Labs: Lab Results 06/23/21 Range/Units 21:31 COVID-19 (JANEEN) Negative (Negative) COVID-19 Clin Com See Note Discharge Plan Discharge Clinical Impression: Acute viral syndrome Patient Disposition: Home, Self-Care Instructions: Viral Syndrome (ED) Additional Instructions: You currently tested negative for COVID-19 however assume you are positive At this time you will be okay for discharge. Please self isolate for 10-14 days. Do not expose yourself to others. You may not go to work or school. Please continue to follow cold instructions and wash your hands frequently. You may take Tylenol / Motrin as directed on the bottle for pain or fever. If you have constant or persistent shortness of breath, fever unresolved with medications, chest pain, or your unable to eat or drink please return to the ED CDC Guidelines for home isolation: - Stay away from others - WEAR A MASK if you are sick AND STAY HOME - Cover your mouth and nose with a tissue when you cough or sneeze. Dispose of tissues in a lined trash can and wash your hands immediately with soap and water for at least 20 seconds. If soap and water are not available, clean hands with alcohol-based hand confidential investigator that contains at least 60% alcohol. - Clean your hands often with soap and water for at least 20 seconds - Avoid touching your eyes, nose and mouth with unwashed hands - Do not share dishes, drinking glasses, cups, eating utensils, towels, or bedding with other people in your home. After using these items, wash them thoroughly with soap and water or put in the community aide. - Clean high-touch surfaces in your isolation area ( sick room and bathroom) every day; let a caregiver clean and disinfect high-touch surfaces in other areas of the home. Clean the area or item with soap and water or another detergent if it is dirty. Then, use a household disinfectant. - Limit contact with pets and animals: If you must care for a pet, wash your hands before and after interacting with them) Prescriptions: No Action methadone 80 mg PO DAILY RF: 0 albuterol sulfate [ProAir HFA] 90 mcg/actuation HFA aerosol inhaler 2 puff PO Q4H PRN (Reason: wheezing) RF: 0 amoxicillin-pot clavulanate [Augmentin] 875-125 mg tablet 1 tab PO Q12H Qty: 20 RF: 0 doxycycline hyclate 100 mg tablet 100 mg PO BID Qty: 20 RF: 0 Referrals: Physician,Unknown J [Primary Care Provider] - 10 days (As needed)
[2021-06-24 00:26] VITALS: BP 130/70; PULSE 74; RESP 16; O2SAT 99
== END 2021-06-24 00:35 | disposition home or self-care (01) ==
PROVIDERS: Emergency Provider Emergency Medicine
DX: B34.9 Viral infection, unspecified (principal); J45.909 Unspecified asthma, uncomplicated; Z20.822 Contact with and (suspected) exposure to COVID-19
CPT/HCPCS: 36415; 87635; 99283

== ENCOUNTER 2021-06-29 00:44 | Emergency (ER) | payer OTHER, SELFPAY ==
[2021-06-29 01:39] VITALS: BP 129/68; PULSE 93; RESP 18; TEMP 36.6; O2SAT 96; BMI 29.8
--- NOTE | 2021-06-29 09:35 | ED_ITS ---
HPI - Extremity Injury (Lower) General Chief Complaint: Extremity Injury, Lower Stated Complaint: Leg infection Time Seen by Provider: 06/29/21 09:27 Source: patient Mode of arrival: ambulatory Limitations: no limitations History of Present Illness HPI Narrative: 41-year-old male with a history of substance abuse currently on methadone, hepatitis C here with reports of wound to the right foot for several weeks now with redness and purulent drainage. No fevers, chills, vomiting. Related Data Home Medications Medication Instructions Recorded Confirmed albuterol sulfate 90 mcg/actuation 2 puff PO Q4H PRN 02/05/21 02/05/21 aerosol inhaler (ProAir HFA) methadone 80 mg PO DAILY 02/05/21 02/05/21 Previous Rx's Medication Instructions Recorded amoxicillin 875 mg-potassium 1 tab PO Q12H #20 tab 02/06/21 clavulanate 125 mg tablet (Augmentin) doxycycline hyclate 100 mg tablet 100 mg PO BID #20 tab 02/06/21 cephalexin 500 mg capsule 500 mg PO BID #14 cap 06/29/21 doxycycline monohydrate 100 mg 100 mg PO BID #20 tab 06/29/21 tablet ibuprofen 600 mg tablet 600 mg PO Q8H PRN #20 tab 06/29/21 Allergies Allergy/AdvReac Type Severity Reaction Status Date / Time No Known Allergies Allergy Verified 02/04/21 20:10 [No Known Allergies*] Review of Systems Review of Systems: Yes all other systems are reviewed and are negative Constitutional: Constitutional: Reports no additional constitutional complaints, Denies body ache(s), Denies chills, Denies fever(s), Denies headache(s) and Denies weakness Eyes: Eyes: Reports no additional eye complaints and Denies change in vision ENT: Reports system reviewed and no additional complaints, except as documented, Denies dizziness, Denies headache(s), Denies nasal congestion, Denies nasal discharge and Denies neck pain Cardiovascular: Cardiovascular: Reports no additional cardiovascular complaints, Denies chest pain, Denies leg edema and Denies dyspnea Respiratory: Respiratory: Reports no additional respiratory complaints, Denies cough and Denies dyspnea Gastrointestinal: Gastrointestinal: Reports no additional gastrointestinal complaints, Denies abdominal pain, Denies diarrhea, Denies nausea and Denies vomiting Genitourinary: Genitourinary: Denies urinary incontinence Musculoskeletal: Musculoskeletal: Reports no additional musculoskeletal complaints, Denies back pain, Denies arthralgias, Denies joint swelling, Denies neck pain, Denies numbness and Denies tingling Integumentary/Breasts: Skin/Breast: Reports system reviewed and no additional complaints, except as docu, Reports swelling, Reports erythema and Denies rash Neurologic: Reports system reviewed and no additional complaints, except as documented, Denies Abnormal speech present, Denies dizziness, Denies headache(s), Denies numbness, Denies tingling and Denies weakness PMFSH Past Medical History Attestation statement: The following information was validated with the patient. Source: old records reviewed and nursing notes reviewed Medical History Asthma Drug abuse and dependence Hypothyroid Methadone maintenance therapy patient No known health problems Social History Social History Household Members: None Housing: Homeless Do you presently have visiting nurse or other home services: No Alcohol intake: unknown Patient Tobacco Use Status: Current everyday Tobacco user Tobacco use type: Cigarette Cigarette Packs Per Day: 1 Cigarettes Per Day: 20.0 Years Smoked: 25 e-Cigarette/Vaping Use: Never Used Second Hand Smoke Exposure: Yes Substance Use Type: Crack/Cocaine and Heroin Advance Directives: No service: No Current occupational status: employed Physical Exam Vital Signs: Vital Signs: Last Vital Signs Temp 97.8 F 06/29/21 01:39 Pulse 93 06/29/21 01:39 Resp 18 06/29/21 01:39 BP 129/68 06/29/21 01:39 Pulse Ox 96 06/29/21 01:39 BMI result Body Mass Index 29.8 Const: General: cooperative, healthy appearing, comfortable and no acute distress Orientation/consciousness: patient oriented x3 Limitations: no limitations HENMT: Head: Yes normal to inspection Ears: hearing grossly normal bilaterally General nose exam: Normal external nose present Face and sinus: Yes normal facial exam Mouth: Normal oral and palatal mucosa present Throat: Yes posterior oropharynx normal Eyes: General: appearance normal, both eyes and all related structures Pupils: Equal, round and reactive pupils present Neck: Neck: Yes normal visual inspection Chest: Chest palpation & inspection: normal inspection of the chest Resp: Effort & Inspection: normal respiratory effort Auscultation: clear to auscultation bilaterally Cardio: Rate: regular rate Rhythm: regular rhythm Peripheral pulses: Peripheral pulses 2+ throughout GI: Inspection: Yes normal to inspection Palpation (GI): Soft to palpation and nontender Auscultation: normal bowel sounds Back/Spine/Pelvis: Thoracic/Lumbar Spine: thoracic and lumbar spine normal to inspection Skin: General skin exam: no rashes or lesions noted Neuro: General: patient oriented x3, no focal motor deficits and normal sensation to monofilament Cranial nerves: Yes Equal, round and reactive pupils present Cognition (Neuro): normal cognition Speech: No Abnormal speech present Gait exam (Neuro): Normal gait present Motor exam (neuro): 5/5 motor strength present throughout Extrem: Other: Tenderness over the site. Able to express about 10 cc of purulent drainage from the site General: Yes normal to inspection Course Course Course Narrative: 41-year-old male here with wound to the right inner ankle. Patient tells me he had an injury several weeks ago with neuropsych the last 2 days that there is some redness and purulent drainage. No fevers or chills. On exam on the medial aspect of the ankle there is a wound with surrounding erythema and warmth. Was able to express some purulent drainage the site. Wound culture was obtained. Will check labs. If normal patient can go home with oral antibiotics and return for worsening symptoms. 1050-labs show mild leukocytosis no shift. Lactic acid negative. Patient is afebrile here. On exam he has a small abscess local cellulitis. I was able to express drainage from the abscess and wound care was provided. Will discharge patient home with oral antibiotics. Reviewed worrisome signs and symptoms of when to return to the emergency department. Comfortable discharge home. MDM - Extremity Injury (Lower) Medical Records Attestation: I reviewed the patient's medical records. Lab Data Attestation: I reviewed the patient's lab results. Result diagrams: 06/29/21 09:55 06/29/21 09:55 Labs: Lab Results 06/29/21 06/29/21 06/29/21 Range/Units 09:55 09:55 09:55 WBC 13.3 H (4.8-10.8) X10*3/uL RBC 5.06 (4.60-5.80) X10*6/uL Hgb 14.2 (14.0-18.0) g/dl Hct 43.1 (42.0-52.0) % MCV 85.2 (80.0-98.0) fL MCH 28.1 (27.0-33.0) pg MCHC 32.9 (31.0-36.0) g/dl RDW 14.9 (11.0-16.0) % Plt Count 212 (160-400) X10*3/uL MPV 9.3 L (9.4-12.4) fL Immature Gran % (Auto) 0.3 (0.0-0.4) % Neut % (Auto) 70.4 (45-73) % Lymph % (Auto) 22.4 (20-40) % [place] % (Auto) 5.4 (2-11) % Eos % (Auto) 1.1 (0-4) % Baso % (Auto) 0.4 (0-2) % Lymph # (Auto) 3.0 (1.2-4.9) X10*3/uL [place] # (Auto) 0.7 (0.1-1.2) X10*3/uL Eos # (Auto) 0.2 (0.0-0.4) X10*3/uL Baso # (Auto) 0.1 (0.0-0.2) X10*3/uL Abs Immat Gran (auto) 0.04 H (0.00-0.03) X10*3/uL Absolute Neuts (auto) 9.3 H (2.0-8.3) x10*3/uL Absolute Nucleated RBC 0.000 (0.0-0.012) X10*3/uL Nucleated RBC % (auto) 0.0 (0.0-0.2) /100WBC Sodium 138 (135-145) mmol/L Potassium 3.8 (3.3-5.1) mmol/L Chloride 104 (96-108) mmol/L Carbon Dioxide 27 (22-29) mmol/L Anion Gap 11 L (12-20) BUN 11 (9-16) mg/dL Creatinine 0.80 (0.5-1.4) mg/dL Estim Creat Clear Calc 147.1 Estimated GFR > 60 Random Glucose 92 (60-115) mg/dL Lactic Acid 0.7 (0.5-2.0) mmol/L Calcium 9.5 D (8.4-10.2) mg/dL Discharge Plan Discharge Clinical Impression: Cellulitis, Abscess of skin or subcutaneous tissue Patient Disposition: Home, Self-Care Instructions: Cellulitis (ED), Abscess (ED) Additional Instructions: Start antibiotics today Keep the wound clean and dry We will call you for blood culture show any bacteria Return for increasing redness, pain or fever greater than 100.4 Prescriptions: New doxycycline monohydrate 100 mg tablet 100 mg PO BID Qty: 20 RF: 0 ibuprofen 600 mg tablet 600 mg PO Q8H PRN (Reason: fever or pain) Qty: 20 RF: 0 cephalexin 500 mg capsule 500 mg PO BID Qty: 14 RF: 0 No Action methadone 80 mg PO DAILY RF: 0 albuterol sulfate [ProAir HFA] 90 mcg/actuation HFA aerosol inhaler 2 puff PO Q4H PRN (Reason: wheezing) RF: 0 amoxicillin-pot clavulanate [Augmentin] 875-125 mg tablet 1 tab PO Q12H Qty: 20 RF: 0 doxycycline hyclate 100 mg tablet 100 mg PO BID Qty: 20 RF: 0 Referrals: Physician,Unknown J [Primary Care Provider] - 2 days
[2021-06-29 10:05] LABS: MANUAL DIFF FLAG NO
[2021-06-29 10:08] LABS: Basophils Absolute Auto 0.1 X10*3/uL (0.0-0.2); Basophils Percent Auto 0.4 % (0-2); Eosinophils Absolute Auto 0.2 X10*3/uL (0.0-0.4); Eosinophils Percent Auto 1.1 % (0-4); Hematocrit 43.1 % (42.0-52.0); Hemoglobin 14.2 g/dl (14.0-18.0); Imm Gran Abs Auto 0.04 X10*3/uL (0.00-0.03); Imm Gran Pct Auto 0.3 % (0.0-0.4); Lymphocytes Percent Auto 22.4 % (20-40); Mean Corpuscular HGB Conc 32.9 g/dl (31.0-36.0); Mean Corpuscular Hemoglobin 28.1 pg (27.0-33.0); Mean Corpuscular Volume 85.2 fL (80.0-98.0); Mean Platelet Volume 9.3 fL (9.4-12.4); Monocytes Absolute Auto 0.7 X10*3/uL (0.1-1.2); Monocytes Percent Auto 5.4 % (2-11); Neutrophils Absolute Auto 9.3 x10*3/uL (2.0-8.3); Neutrophils Percent Auto 70.4 % (45-73); Platelet Count 212 X10*3/uL (160-400); Red Blood Count 5.06 X10*6/uL (4.60-5.80); Red Cell Distribution Width 14.9 % (11.0-16.0); White Blood Count 13.3 X10*3/uL (4.8-10.8)
[2021-06-29 10:19] LABS: Lactic Acid 0.7 mmol/L (0.5-2.0)
[2021-06-29 10:22] LABS: Anion Gap 11 (12-20); Blood Urea Nitrogen 11 mg/dL (9-16); Calcium 9.5 mg/dL (8.4-10.2); Carbon Dioxide 27 mmol/L (22-29); Chloride 104 mmol/L (96-108); Creatinine Clr Calc Pharmacy 147.1; Estimated Glomerular Filt Rate > 60; Glucose Random 92 mg/dL (60-115); Potassium 3.8 mmol/L (3.3-5.1); Sodium 138 mmol/L (135-145)
[2021-06-29] MEDS: Acetaminophen 325 MG TABLET 650 MG PO (10:52)
== END 2021-06-29 10:53 | disposition home or self-care (01) ==
PROVIDERS: Nurse Practitioner Family; Emergency Provider Emergency Medicine
DX: L03.115 Cellulitis of right lower limb (principal); L02.415 Cutaneous abscess of right lower limb; F11.20 Opioid dependence, uncomplicated; J45.909 Unspecified asthma, uncomplicated; B19.20 Unspecified viral hepatitis C without hepatic coma; Z59.02 Unsheltered homelessness
CPT/HCPCS: 36415; 80048; 83605; 85025; 87040; 87071; 87077; 87147; 87186; 87205; 99283

== ENCOUNTER 2021-07-07 00:06 | Emergency (ER) | payer OTHER, SELFPAY ==
[2021-07-07 00:36] VITALS: BP 129/90; PULSE 92; RESP 18; TEMP 36.8; O2SAT 94; BMI 29.8
[2021-07-07] MEDS: Acetaminophen 325 MG TABLET 975 MG PO (00:50)
--- NOTE | 2021-07-07 00:51 | PC.NURSE ---
rn hemodialysis charge Karina notified of suicidal ideation, pt to room 11 w/ sitter at bedside, security contacted to remove belongings
[2021-07-07 01:02] LABS: COVID-19 Test Positive (Negative)
--- NOTE | 2021-07-07 01:21 | ED.PSYCH ---
HPI - Psych General Chief Complaint: Psychiatric Symptoms Stated Complaint: SI, thoughts of harming self and others Time Seen by Provider: 07/07/21 00:47 Source: patient Mode of arrival: ambulatory Limitations: no limitations History of Present Illness HPI Narrative: 41-year-old male with a history of bipolar disease, anxiety, depression, substance abuse disorder here with reports of suicidal thoughts and depression since finding out his mother yesterday. Patient tells me he has been off all of his psychiatric medications for several years. Additionally he has been using heroin and cocaine and alcohol intermittently. He is currently on methadone 100 mg daily. No physical complaints. His son is COVID positive. He is currently homeless. He received 1 dose of Livelens Related Data Home Medications Medication Instructions Recorded Confirmed albuterol sulfate 90 mcg/actuation 2 puff PO Q4H PRN 02/05/21 02/05/21 aerosol inhaler (ProAir HFA) methadone 80 mg PO DAILY 02/05/21 02/05/21 Previous Rx's Medication Instructions Recorded amoxicillin 875 mg-potassium 1 tab PO Q12H #20 tab 02/06/21 clavulanate 125 mg tablet (Augmentin) doxycycline hyclate 100 mg tablet 100 mg PO BID #20 tab 02/06/21 cephalexin 500 mg capsule 500 mg PO BID #14 cap 06/29/21 doxycycline monohydrate 100 mg 100 mg PO BID #20 tab 06/29/21 tablet ibuprofen 600 mg tablet 600 mg PO Q8H PRN #20 tab 06/29/21 Allergies Allergy/AdvReac Type Severity Reaction Status Date / Time No Known Allergies Allergy Verified 07/07/21 00:36 [No Known Allergies*] Review of Systems Review of Systems: Yes all other systems are reviewed and are negative Constitutional: Constitutional: Reports no additional constitutional complaints, Denies body ache(s), Denies chills, Denies fever(s), Denies headache(s) and Denies weakness Eyes: Eyes: Reports no additional eye complaints and Denies change in vision ENT: Reports system reviewed and no additional complaints, except as documented, Denies dizziness, Denies headache(s), Denies nasal congestion, Denies nasal discharge and Denies neck pain Cardiovascular: Cardiovascular: Reports no additional cardiovascular complaints, Denies chest pain, Denies leg edema and Denies dyspnea Respiratory: Respiratory: Reports no additional respiratory complaints, Denies cough and Denies dyspnea Gastrointestinal: Gastrointestinal: Reports no additional gastrointestinal complaints, Denies abdominal pain, Denies diarrhea, Denies nausea and Denies vomiting Genitourinary: Genitourinary: Denies urinary incontinence Musculoskeletal: Musculoskeletal: Reports no additional musculoskeletal complaints, Denies back pain, Denies arthralgias, Denies joint swelling, Denies neck pain, Denies numbness and Denies tingling Integumentary/Breasts: Skin/Breast: Reports system reviewed and no additional complaints, except as docu and Denies rash Neurologic: Reports system reviewed and no additional complaints, except as documented, Denies Abnormal speech present, Denies dizziness, Denies headache(s), Denies numbness, Denies tingling and Denies weakness Psychiatric: Psychiatric: Reports anxiety, Reports depression and Reports suicidal ideation PMFSH Past Medical History Attestation statement: The following information was validated with the patient. Source: old records reviewed and nursing notes reviewed Medical History Asthma Drug abuse and dependence Hypothyroid Methadone maintenance therapy patient No known health problems Social History Social History Household Members: None Housing: Homeless Do you presently have visiting nurse or other home services: No Alcohol intake: unknown Patient Tobacco Use Status: Current everyday Tobacco user Tobacco use type: Cigarette Cigarette Packs Per Day: 1 Cigarettes Per Day: 20.0 Years Smoked: 25 e-Cigarette/Vaping Use: Never Used Second Hand Smoke Exposure: Yes Substance Use Type: Crack/Cocaine and Heroin Advance Directives: No Advance Directives Information Provided: Yes service: No Current occupational status: employed Physical Exam Vital Signs: Vital Signs: Last Vital Signs Temp 98.2 F 07/07/21 00:36 Pulse 92 07/07/21 00:36 Resp 18 07/07/21 00:36 BP 129/90 H 07/07/21 00:36 Pulse Ox 94 07/07/21 00:36 BMI result Body Mass Index 29.8 Const: General: cooperative, healthy appearing, comfortable and no acute distress Orientation/consciousness: patient oriented x3 Limitations: no limitations HENMT: Head: Yes normal to inspection Ears: hearing grossly normal bilaterally General nose exam: Normal external nose present Face and sinus: Yes normal facial exam Mouth: Normal oral and palatal mucosa present Throat: Yes posterior oropharynx normal Eyes: General: appearance normal, both eyes and all related structures Pupils: Equal, round and reactive pupils present Neck: Neck: Yes normal visual inspection Chest: Chest palpation & inspection: normal inspection of the chest Resp: Effort & Inspection: normal respiratory effort Auscultation: clear to auscultation bilaterally Cardio: Rate: regular rate Rhythm: regular rhythm Peripheral pulses: Peripheral pulses 2+ throughout GI: Inspection: Yes normal to inspection Palpation (GI): Soft to palpation and nontender Auscultation: normal bowel sounds Back/Spine/Pelvis: Thoracic/Lumbar Spine: thoracic and lumbar spine normal to inspection Skin: General skin exam: no rashes or lesions noted Neuro: General: patient oriented x3, no focal motor deficits and normal sensation to monofilament Cranial nerves: Yes CN's II-XII intact bilaterally and Yes Equal, round and reactive pupils present Cognition (Neuro): normal cognition Speech: No Abnormal speech present Gait exam (Neuro): Normal gait present Motor exam (neuro): 5/5 motor strength present throughout Extrem: General: Yes normal to inspection Course Course Course Narrative: [age] year old male here with reports of depression, suicidal ideation since hearing his mother yesterday. Patient has also been noncompliant with all the psychiatric medications for quite some time. Will need labs, drug screen, COVID screen. No concern for acute ingestion or trauma. 0120-COVID screen is positive. Patient is asymptomatic. section 12 placed on chart 0200-Sign out to dr espinoza pending valentina parnell [facility] - Psych Medical Records Attestation: I reviewed the patient's medical records. Lab Data Attestation: I reviewed the patient's lab results. Labs: Lab Results 07/07/21 Range/Units 00:45 COVID-19 (JANEEN) Positive A (Negative) COVID-19 Clin Com See Note Discharge Plan Discharge Clinical Impression: Suicidal ideation, Depression Patient Disposition: Still a Patient Prescriptions: No Action methadone 80 mg PO DAILY RF: 0 albuterol sulfate [ProAir HFA] 90 mcg/actuation HFA aerosol inhaler 2 puff PO Q4H PRN (Reason: wheezing) RF: 0 amoxicillin-pot clavulanate [Augmentin] 875-125 mg tablet 1 tab PO Q12H Qty: 20 RF: 0 doxycycline hyclate 100 mg tablet 100 mg PO BID Qty: 20 RF: 0 doxycycline monohydrate 100 mg tablet 100 mg PO BID Qty: 20 RF: 0 ibuprofen 600 mg tablet 600 mg PO Q8H PRN (Reason: fever or pain) Qty: 20 RF: 0 cephalexin 500 mg capsule 500 mg PO BID Qty: 14 RF: 0
[2021-07-07 03:05] LABS: MANUAL DIFF FLAG NO
[2021-07-07 03:06] LABS: Basophils Percent Auto 0.3 % (0-2); Eosinophils Absolute Auto 0.2 X10*3/uL (0.0-0.4); Eosinophils Percent Auto 1.5 % (0-4); Hematocrit 42.6 % (42.0-52.0); Hemoglobin 14.3 g/dl (14.0-18.0); Imm Gran Abs Auto 0.02 X10*3/uL (0.00-0.03); Imm Gran Pct Auto 0.2 % (0.0-0.4); Lymphocytes Absolute Auto 4.1 X10*3/uL (1.2-4.9); Lymphocytes Percent Auto 41.8 % (20-40); Mean Corpuscular HGB Conc 33.6 g/dl (31.0-36.0); Mean Corpuscular Hemoglobin 28.2 pg (27.0-33.0); Mean Platelet Volume 9.5 fL (9.4-12.4); Monocytes Absolute Auto 0.5 X10*3/uL (0.1-1.2); Monocytes Percent Auto 5.2 % (2-11); Platelet Count 189 X10*3/uL (160-400); Red Blood Count 5.07 X10*6/uL (4.60-5.80); Red Cell Distribution Width 14.8 % (11.0-16.0); White Blood Count 9.7 X10*3/uL (4.8-10.8)
[2021-07-07 03:23] LABS: Ethanol < 10 mg/dL
[2021-07-07 03:26] LABS: Amphetamine Screen Urine Not Detected (Not Detect); Barbiturates, Urine Not Detected (Not Detect); Benzodiazepines Screen Urine Not Detected (Not Detect); Cannabinoid Screen Urine Not Detected (Not Detect); Cocaine Screen Urine POSITIVE (Not Detect); Fentanyl, urine POSITIVE (Not Detect); Opiate Screen Urine POSITIVE (Not Detect); Phencyclidine Screen Urine Not Detected (Not Detect)
[2021-07-07 03:28] LABS: Alanine Aminotransferase 42 U/L (0-40); Alkaline Phosphatase 85 U/L (39-117); Anion Gap 11 (12-20); Aspartate Amino Transferase 29 U/L (5-37); Bilirubin Direct 0.2 mg/dL (0.0-0.5); Bilirubin Total 0.4 mg/dL (0.0-1.0); Blood Urea Nitrogen 16 mg/dL (9-16); Calcium 9.5 mg/dL (8.4-10.2); Carbon Dioxide 28 mmol/L (22-29); Chloride 102 mmol/L (96-108); Creatinine Clr Calc Pharmacy 145.3; Estimated Glomerular Filt Rate > 60; Glucose Random 107 mg/dL (60-115); Salicylate < 5.0 mg/dL (15-30); Sodium 137 mmol/L (135-145); Total Protein 7.4 g/dL (6.5-8.0)
[2021-07-07 03:30] LABS: Acetaminophen LAB < 1 mcg/mL (<30)
[2021-07-07 06:00] VITALS: BP 118/76; PULSE 54; RESP 16; TEMP 36.8; O2SAT 95
--- NOTE | 2021-07-07 06:17 | PC.NURSE ---
[facility] REFERRAL FORM COMPLETED
[2021-07-07 08:00] VITALS: BP 120/70; PULSE 76; RESP 18; O2SAT 98
[2021-07-07 09:34] VITALS: BP 109/63; PULSE 70; RESP 14; TEMP 36.5; O2SAT 97
--- NOTE | 2021-07-07 11:41 | PC.NURSE ---
patient requesting methadone, obtained information from patient and spoke with literacy coach who is going to attempt to verify dosage, literacy coach is in currently speaking with patient, sitter at bedside, will continue to monitor.
[2021-07-07 12:03] VITALS: BP 121/67; PULSE 59; RESP 16; TEMP 36.7; O2SAT 97
[2021-07-07] MEDS: Acetaminophen 325 MG TABLET 650 MG PO (12:16)
--- NOTE | 2021-07-07 12:17 | PC.NURSE ---
patient c/o headache, medicated with tylenol will continue to monitor.
[2021-07-07] MEDS: methADONE HCl 20 MG/2 ML ORAL.CONC 100 MG PO (13:38)
--- NOTE | 2021-07-07 13:39 | PHA.MEDREC ---
Pharmacy Consult ? Medication Reconciliation Pharmacy has completed the medication reconciliation. There are no remarkbale issues for provider's attention. Jacquelin Hedrick, RoshanD
--- NOTE | 2021-07-07 13:40 | PC.NURSE ---
patient a&ox3 medicated for pain, will continue to monitor.
--- NOTE | 2021-07-07 17:36 | PC.NURSE ---
patient a&ox3, currently denying si/hi, sitter at bedside, will continue to monitor.
[2021-07-07 21:01] VITALS: BP 102/54; PULSE 59; RESP 18; TEMP 36.7; O2SAT 94
[2021-07-08 02:03] VITALS: BP 108/58; PULSE 52; RESP 14; TEMP 36.6; O2SAT 97
[2021-07-08 05:25] VITALS: BP 135/70; PULSE 78; RESP 16; TEMP 37.2; O2SAT 97
[2021-07-08 07:39] VITALS: BP 101/71; PULSE 58; RESP 18; O2SAT 93
--- NOTE | 2021-07-08 07:42 | PC.NURSE ---
pt is currently resting in the stretcher with eyes shut, respirations even and unlabored, color appropriate for ethnicity, pt reports pain all over pain at 10/10, pt does take methadone 100mg daily at [facility] on [address] pt denies si/hi at this time, states that his mother that is why he reported si statements earlier, pt is calm and cooperative sitter in place, vs stable
[2021-07-08] MEDS: methADONE HCl 20 MG/2 ML ORAL.CONC 100 MG PO (09:35)
--- NOTE | 2021-07-08 10:30 | PC.NURSE ---
spoke to lisa in regards to the pt's plan, lisa will follow up again today for re-evaluation
[2021-07-08] MEDS: Ibuprofen 600 MG TABLET PO (12:23)
--- NOTE | 2021-07-08 12:27 | PC.NURSE ---
pt medicated for generalize pain, pain at 8/10 pt is calm and cooperative awaiting for bhn evaluation
--- NOTE | 2021-07-08 12:45 | PC.NURSE ---
bhn at bedside
--- NOTE | 2021-07-08 15:00 | PC.NURSE ---
spoke to Kaye from case management pt is currently a psych bed search
--- NOTE | 2021-07-08 18:07 | PC.NURSE ---
pt is currently resting with his eyes shut, in no apparent distress at this time
[2021-07-08 18:17] VITALS: BP 110/57; PULSE 58; RESP 20; TEMP 36.7; O2SAT 96
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
[2021-07-08 19:36] VITALS: BP 107/54; PULSE 57; RESP 16; TEMP 36.8; O2SAT 98
[2021-07-08] MEDS: Nicotine Polacrilex 2 MG GUM BUCCAL (21:10)
[2021-07-08] MEDS: Sertraline HCL 50 MG TABLET PO (21:10)
[2021-07-08 23:48] VITALS: RESP 16
[2021-07-09 02:00] VITALS: RESP 16
[2021-07-09 04:29] VITALS: RESP 16
[2021-07-09 06:29] VITALS: BP 121/63; PULSE 56; RESP 16; TEMP 36.6; O2SAT 95
[2021-07-09 07:10] VITALS: BP 107/60; PULSE 54; RESP 14; O2SAT 93
[2021-07-09] MEDS: methADONE HCl 20 MG/2 ML ORAL.CONC 100 MG PO (08:20)
[2021-07-09] MEDS: Nicotine Polacrilex 2 MG GUM BUCCAL (11:04)
[2021-07-09] MEDS: Acetaminophen 325 MG TABLET 650 MG PO (11:04)
[2021-07-09 11:05] VITALS: BP 121/76; PULSE 72; RESP 18; O2SAT 93
[2021-07-09] MEDS: Sertraline HCL 50 MG TABLET PO (21:34)
[2021-07-10 00:26] VITALS: BP 137/61; PULSE 63; RESP 20; TEMP 36.9; O2SAT 98
--- NOTE | 2021-07-10 06:07 | PC.NURSE ---
Patient slept through the night, no distress observed/reported, behavior appropriate, medication compliant, patient covid +, quarantine well, follows direction well, patient was screened by [facility], section 12 inpatient bed search, no update on bed search, VSS, will continue to monitor.
[2021-07-10] MEDS: methADONE HCl 20 MG/2 ML ORAL.CONC 100 MG PO (09:59)
[2021-07-10] MEDS: Nicotine Polacrilex 2 MG GUM BUCCAL (10:04)
[2021-07-10] MEDS: Ibuprofen 600 MG TABLET PO (10:04)
[2021-07-10 10:25] VITALS: BP 119/22; PULSE 65; RESP 16; TEMP 36.9; O2SAT 97
--- NOTE | 2021-07-10 15:32 | PC.NURSE ---
Report received. Pt resting in bed, no signs of distress. Continues to be a section 12 bed search. Waiting to be seen by N for a MSU
--- NOTE | 2021-07-10 16:56 | MHC.CARE ---
CARE team met with pt and psych provider. Pt initially came in due to suicidal ideation, increased depression, substance use, grieving his mother who recently and struggling with PTSD. Pt is covid positive and has verbalized that he wishes to return home and continue to quarantine at his sister's house. Pt presents with good insight, states that he is on a waiting list for therapy and will follow up with [facility]. He also welcomes a [facility] referral. Pt denies current SI, HI and states his mood is good I feel fine. Pt requests to d/c home. He presents in good space and has no evidence of psychosis. Pt reports he has been talking to his sister and family since being in the ED. Pt will be d/c home and will f/u with [facility] for methadone and feels that he will remain safe.
[2021-07-10 17:03] VITALS: BP 127/69; PULSE 64; RESP 18; TEMP 36.8; O2SAT 96
== END 2021-07-10 17:36 | disposition home or self-care (01) ==
PROVIDERS: Nurse Practitioner Family; Emergency Provider Internal Medicine; PCP Internal Medicine
DX: U07.1 COVID-19 (principal); R45.851 Suicidal ideations; F33.1 Major depressive disorder, recurrent, moderate; F41.1 Generalized anxiety disorder; R44.0 Auditory hallucinations; F43.10 Post-traumatic stress disorder, unspecified; F10.21 Alcohol dependence, in remission; F11.20 Opioid dependence, uncomplicated; F14.10 Cocaine abuse, uncomplicated; F17.200 Nicotine dependence, unspecified, uncomplicated; Z72.89 Other problems related to lifestyle; Z63.4 Disappearance and death of family member; Z91.14 Patient's other noncompliance with medication regimen
CPT/HCPCS: 36415; 80048; 80076; 80143; 80179; 80307; 82077; 85025; 87635; 99285

== ENCOUNTER 2021-08-15 19:15 | Emergency (ER) | payer OTHER, SELFPAY ==
[2021-08-15 19:23] VITALS: BP 128/83; PULSE 78; RESP 16; TEMP 36.1; O2SAT 97; BMI 30.5
[2021-08-15 21:22] LABS: COVID-19 Test Positive (Negative); IDNOW Serial# 08D9AD1C
--- NOTE | 2021-08-15 21:45 | ED.URI ---
HPI - URI/Sore Throat General Chief Complaint: Upper Respiratory Symptoms Stated Complaint: flu like symptoms Time Seen by Provider: 08/15/21 21:45 Source: patient and family Mode of arrival: ambulatory Limitations: no limitations History of Present Illness HPI Narrative: 41-year-old male came in for evaluation of sore throat, congestion, runny nose, generalized body ache. Related Data Home Medications Medication Instructions Recorded Confirmed albuterol sulfate 90 mcg/actuation 2 puff PO Q4H PRN 02/05/21 07/07/21 aerosol inhaler (ProAir HFA) methadone 10 mg/mL oral 100 mg PO DAILY 07/07/21 07/07/21 concentrate (Methadose) Previous Rx's Medication Instructions Recorded cephalexin 500 mg capsule 500 mg PO BID #14 cap 06/29/21 doxycycline monohydrate 100 mg 100 mg PO BID #20 tab 06/29/21 tablet ibuprofen 600 mg tablet 600 mg PO Q8H PRN #20 tab 06/29/21 sertraline 50 mg tablet (Zoloft) 50 mg PO DAILY #14 tab 07/10/21 Allergies Allergy/AdvReac Type Severity Reaction Status Date / Time No Known Allergies Allergy Verified 07/07/21 00:36 [No Known Allergies*] Review of Systems Review of Systems: All other systems are reviewed and are negative Constitutional: Reports as per HPI and Reports no additional constitutional complaints Eyes: Reports as per HPI and Reports no additional eye complaints Reports system reviewed and no additional complaints, except as documented Cardiovascular: Reports as per HPI and Reports no additional cardiovascular complaints Respiratory: Reports as per HPI and Reports no additional respiratory complaints Gastrointestinal: Reports as per HPI and Reports no additional gastrointestinal complaints Genitourinary: Reports no additional female genitourinary complaints Musculoskeletal: Reports no additional musculoskeletal complaints Skin/Breast: Reports system reviewed and no additional complaints, except as docu Psychiatric: Reports no additional psychiatric complaints Endocrine: Reports no additional endocrine complaints Hematologic/Lymphatic: Reports no additional hematologic/lymphatic complaints Allergic/Immunologic: Reports no additional allergic/immunologic complaints Reports system reviewed and no additional complaints, except as documented and Reports Abnormal speech present [facility] Past Medical History Medical History Asthma Drug abuse and dependence Hypothyroid Methadone maintenance therapy patient No known health problems Social History Social History Household Members: None Housing: Homeless Do you presently have visiting nurse or other home services: No Alcohol intake: unknown Patient Tobacco Use Status: Current everyday Tobacco user Tobacco use type: Cigarette Cigarette Packs Per Day: 1 Cigarettes Per Day: 20.0 Years Smoked: 25 e-Cigarette/Vaping Use: Never Used Second Hand Smoke Exposure: Yes Substance Use Type: Crack/Cocaine and Heroin Advance Directives: No Advance Directives Information Provided: Yes service: No Current occupational status: employed Physical Exam Vital Signs: Vital Signs: Last Vital Signs Temp 97 F 08/15/21 19:23 Pulse 78 08/15/21 19:23 Resp 16 08/15/21 19:23 BP 128/83 08/15/21 19:23 Pulse Ox 97 08/15/21 19:23 BMI result Body Mass Index 30.5 Vital signs have been reviewed as appeared to be correct. Blood pressure normal. Heart rate normal. Respiration rate normal. Temperature normal. Oxygen saturation normal. Appearance: Alert. Oriented X3. No acute distress. Head: Normal external exam. Normocephalic. Atraumatic. No Delgado signs noted. No raccoon eyes noted Eyes: PERRLA. EOMI. Conjunctiva and sclera normal. Eyelids normal. ENT: TM's Normal. Pharynx normal. Uvula midline. Moist mucous membranes. No trismus noted. No drooling noted. No muffled voice noted. Neck: Normal inspection. Neck supple. FROM. No adenopathy. Thyroid Normal. No meningeal signs. No neck mass noted. CVS: Normal heart rate and rhythm. Heart sound normal. No murmurs noted. Pulses normal throughout. Respiratory: No respiratory distress. Painless inspiration. Breath sounds normal. No wheezes/rales/rhonchi noted. Chest nontender. No accessory muscle usage noted or decreased air movement noted. Abdomen: Soft and nontender. Bowel sounds normal in all 4 quadrants. No distention noted. No organomegaly noted. No visible injury noted. Back: No CVA tenderness. Full range of motion noted. Skin: Skin warm and dry. Normal skin color. Normal skin turgor. No rashes/lesions/lacerations noted. Extremities: No lower extremity edema. Extremities exhibit normal range of motion. Extremities nontender. Neuro: Oriented X 3. Cranial nerve exam: II-XII are grossly intact No motor deficit. No sensory deficit. Reflexes normal. Course Course Course Narrative: Patient is positive for COVID. Recommend wear face mask at all times, frequent handwashing, self-quarantine, keep social distancing. MDM - URI/Sore Throat Lab Data Labs: Lab Results 08/15/21 Range/Units 20:57 COVID-19 (JANEEN) Positive A (Negative) COVID-19 Clin Com See Note Discharge Plan Discharge Clinical Impression: COVID-19 virus infection Patient Disposition: Home, Self-Care Instructions: COVID-19 (Coronavirus Disease 2019) (ED) Prescriptions: No Action albuterol sulfate [ProAir HFA] 90 mcg/actuation HFA aerosol inhaler 2 puff PO Q4H PRN (Reason: wheezing) 0RF doxycycline monohydrate 100 mg tablet 100 mg PO BID Qty: 20 0RF ibuprofen 600 mg tablet 600 mg PO Q8H PRN (Reason: fever or pain) Qty: 20 0RF cephalexin 500 mg capsule 500 mg PO BID Qty: 14 0RF methadone [Methadose] 10 mg/mL Concentrate 100 mg PO DAILY 0RF sertraline [Zoloft] 50 mg tablet 50 mg PO DAILY Qty: 14 0RF Referrals: Navi Faustin DO [Primary Care Provider] - 2 days
== END 2021-08-15 22:33 | disposition home or self-care (01) ==
PROVIDERS: Emergency Provider Emergency Medicine; PCP Internal Medicine
DX: U07.1 COVID-19 (principal)
CPT/HCPCS: 87635; 99283

== ENCOUNTER 2021-11-24 22:13 | Emergency (ER) | payer OTHER, SELFPAY ==
--- NOTE | ~2021-11-24 | XR_ITS ---
EXAMINATION: XR CHEST CLINICAL INFORMATION: Cough. COMPARISON: Chest x-ray 02/01/2021 TECHNIQUE: Frontal view of the chest was obtained. 11:11 PM FINDINGS: Chronic pleural-parenchymal scarring with blunting of left costophrenic angle at the left lung base unchanged since chest x-ray 02/01/2021. No acute airspace disease. No pulmonary vascular congestion. Cardiac and mediastinal contours are normal. XR/XR chest 1V IMPRESSION: Chronic pleural-parenchymal scarring and pleural thickening at the left lung base. No acute abnormality of chest.
[2021-11-24 22:44] VITALS: BP 143/94; PULSE 80; RESP 18; TEMP 36.9; O2SAT 97; BMI 32.5
[2021-11-24 23:25] LABS: COVID-19 Test Negative (Negative)
[2021-11-24 23:26] LABS: IDNOW Serial# 16C4AD1C; Influenza A Negative (Negative); Influenza B2 Negative (Negative)
[2021-11-25 00:24] VITALS: BP 121/54; PULSE 67; RESP 20; O2SAT 95
--- NOTE | 2021-11-25 00:24 | ED.URI ---
HPI - URI/Sore Throat General Chief Complaint: Upper Respiratory Symptoms Stated Complaint: Asthma Time Seen by Provider: 11/25/21 00:23 Source: patient Mode of arrival: ambulatory Limitations: no limitations History of Present Illness MD elicited complaint: cough and other (asthma exacerbation) Pertinent past history: asthma Onset (ago): day(s) (4) Consistency: constant Severity: moderate Description of mucous: clear Able to tolerate fluids by mouth: Yes Exacerbating factors: other (coughing) Relieving factors: nothing Context: other (hx of similar episodes has no INH) Associated symptoms: rhinorrhea, nasal congestion, cough and shortness of breath Treatments prior to arrival: none Related Data Home Medications Medication Instructions Recorded Confirmed albuterol sulfate 90 mcg/actuation 2 puff PO Q4H PRN 02/05/21 07/07/21 aerosol inhaler (ProAir HFA) methadone 10 mg/mL oral 100 mg PO DAILY 07/07/21 07/07/21 concentrate (Methadose) Previous Rx's Medication Instructions Recorded cephalexin 500 mg capsule 500 mg PO BID #14 cap 06/29/21 doxycycline monohydrate 100 mg 100 mg PO BID #20 tab 06/29/21 tablet ibuprofen 600 mg tablet 600 mg PO Q8H PRN #20 tab 06/29/21 sertraline 50 mg tablet (Zoloft) 50 mg PO DAILY #14 tab 07/10/21 prednisone 20 mg tablet 60 mg PO DAILY 4 Days #12 tab 11/25/21 Allergies Allergy/AdvReac Type Severity Reaction Status Date / Time No Known Allergies Allergy Verified 07/07/21 00:36 [No Known Allergies*] Review of Systems Review of Systems: Constitutional : No Fever, No Chills ENT/Mouth : No Hoarseness, No sore throat, No Rhinorrhea Eyes: No Redness, No Discharge, No Vision Changes Cardiovascular : No Chest Pain, positive SOB, positive Dyspnea on Exertion, No Edema Respiratory : positive Cough, No Sputum, positive Wheezing, Gastrointestinal : No Nausea, No Vomiting, No Diarrhea, No abdominal Pain Genitourinary : No Dysuria, No Hematuria Musculoskeletal : No joint pain, No Myalgias Skin : No rash Neuro : No Weakness, No Numbness, No Headache Psych : No anxiety, depression Heme/Lymph: No Bruising, No Bleeding Endocrine : No Polyuria, No Polydipsia All other systems reviewed and are negative PMFSH Past Medical History Attestation statement: The following information was validated with the patient. Medical History Asthma Drug abuse and dependence Hypothyroid Methadone maintenance therapy patient No known health problems Social History Social History Household Members: None Housing: Homeless Do you presently have visiting nurse or other home services: No Alcohol intake: unknown Patient Tobacco Use Status: Current everyday Tobacco user Tobacco use type: Cigarette Cigarette Packs Per Day: 1 Cigarettes Per Day: 20.0 Years Smoked: 25 e-Cigarette/Vaping Use: Never Used Second Hand Smoke Exposure: Yes Substance Use Type: Crack/Cocaine and Heroin Advance Directives: No service: No Current occupational status: employed Physical Exam Vital Signs: Vital Signs: Last Vital Signs Temp 98.4 F 11/24/21 22:44 Pulse 67 11/25/21 00:24 Resp 20 11/25/21 00:24 BP 121/54 L 11/25/21 00:24 Pulse Ox 95 11/25/21 00:24 BMI result Body Mass Index 32.5 Appearance: Alert. Oriented X3. No acute distress. Eyes: Pupils equal, round and reactive to light. ENT: Pharynx normal. Neck: Normal inspection. Neck supple. CVS: Normal heart rate and rhythm. Pulses normal. Respiratory: No respiratory distress. Breath sounds mild diffuse end exp wheezes Abdomen: Soft and nontender. Skin: Skin warm and dry. Normal skin color. Normal skin turgor. Extremities: No lower extremity edema. No calf ttp Neuro: Oriented X 3. No motor deficit. No sensory deficit. Course Course Course Narrative: patient improved, 95% while sleeping stable for DC MDM - URI/Sore Throat MDM Narrative Medical decision making narrative: 41 yo male hx of substance abuse, asthma without INH at home, smoker who comes in with c/o wheezing at this time will need albuterol neb, PO prednisone and INH in hand. He is not toxic, no resp distress, tolerating PO, no hypoxia, CXR negative - anticipate DC home Lab Data Labs: Lab Results 11/24/21 11/24/21 Range/Units 22:49 22:49 COVID-19 (JANEEN) Negative (Negative) COVID-19 Clin Com See Note Influenza Type A (ARIE) Negative (Negative) Influenza Type B (ARIE) Negative (Negative) Influenza A & B Note See Note Discharge Plan Discharge Clinical Impression: Asthma Qualifiers: Asthma severity: moderate Asthma persistence: persistent Asthma complication type: with acute exacerbation Qualified Code(s): J45.41 - Moderate persistent asthma with (acute) exacerbation Patient Disposition: Home, Self-Care Instructions: Asthma (ED) Additional Instructions: return to ED for any worsening symptoms or concerns Prescriptions: New prednisone 20 mg tablet 60 mg PO DAILY 4 Days Qty: 12 0RF No Action albuterol sulfate [ProAir HFA] 90 mcg/actuation HFA aerosol inhaler 2 puff PO Q4H PRN (Reason: wheezing) 0RF doxycycline monohydrate 100 mg tablet 100 mg PO BID Qty: 20 0RF ibuprofen 600 mg tablet 600 mg PO Q8H PRN (Reason: fever or pain) Qty: 20 0RF cephalexin 500 mg capsule 500 mg PO BID Qty: 14 0RF methadone [Methadose] 10 mg/mL Concentrate 100 mg PO DAILY 0RF sertraline [Zoloft] 50 mg tablet 50 mg PO DAILY Qty: 14 0RF Referrals: Physician,Unknown J [Primary Care Provider] - (PCP if not better 2 days)
[2021-11-25] MEDS: Albuterol Sulfate (0.083%) 2.5 MG/3 ML VIAL.NEB 5 MG INHALE (00:38)
[2021-11-25] MEDS: Albuterol Sulfate 90 MCG 8 GM INHALER 2 PUFF INHALE (00:51)
[2021-11-25] MEDS: predniSONE 20 MG TABLET 60 MG PO (01:06)
== END 2021-11-25 01:12 | disposition home or self-care (01) ==
PROVIDERS: Emergency Provider Emergency Medicine
DX: J45.41 Moderate persistent asthma with (acute) exacerbation (principal); R05.9 Cough, unspecified; R06.02 Shortness of breath; F17.210 Nicotine dependence, cigarettes, uncomplicated; Z71.6 Tobacco abuse counseling; Z20.822 Contact with and (suspected) exposure to COVID-19
CPT/HCPCS: 71045; 87502; 87635; 99282; 99284

== ENCOUNTER 2022-07-14 20:21 | Emergency (ER) | payer OTHER, SELFPAY ==
--- NOTE | ~2022-07-14 | XR_ITS ---
EXAMINATION: XR CHEST CLINICAL INFORMATION: Asthma and cough COMPARISON: 11/24/2021 and 02/01/2021 TECHNIQUE: 2 views of the chest were obtained. FINDINGS: The heart and pulmonary vessels appear normal. Again noted is chronic pleural parenchymal scarring left lung base identical in appearance to the 11/24/2021 study as well as the 02/01/2021 study. No new infiltrates. No lung masses. The right lung is clear. No right pleural effusion. XR/XR chest 2V IMPRESSION: No acute intrathoracic disease. 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
--- NOTE | ~2022-07-14 | CT_ITS ---
EXAMINATION: CT HEAD WITHOUT CONTRAST CLINICAL INFORMATION: Severe headache COMPARISON: None TECHNIQUE: Imaging was performed from the skull base to vertex without intravenous administration of contrast. This CT examination was performed using dose optimization techniques as appropriate, variously including the following: *Automated exposure control *Adjustment of mA and/or kV according to patient size (this includes techniques or standardized protocols for targeted exams where dose is matched to indication/reason for exam; i.e. extremities or head) *Use of iterative reconstruction technique Total exam dose length product: 891 mGy-cm FINDINGS: No intra or extra-axial fluid collection, hemorrhage, or mass. No ventriculomegaly. No midline shift or herniation. Basal cisterns are patent. Blount-white matter differentiation is maintained. No territorial encephalomalacia. There is proximally 6 mm cerebellar tonsillar ectopia. No significant volume loss. There is no abnormal attenuation within the brain parenchyma. No calvarial fracture or soft tissue abnormality. Mild mucosal thickening within ethmoid air cells. The mastoid air cells are normally aerated. CT/CT head/brain wo IV con IMPRESSION: 1. No acute intracranial pathology. 2. 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
[2022-07-14 20:39] VITALS: BP 142/86; PULSE 86; RESP 20; TEMP 36.6; O2SAT 94; BMI 33.9
--- NOTE | 2022-07-14 20:43 | ED_ITS ---
HPI - General Adult General Chief complaint: Upper Respiratory Symptoms <HAMMAD Schneider - Last Filed: 07/14/22 20:45> Stated complaint: body aches <HAMMAD Schneider - Last Filed: 07/14/22 20:45> Time Seen by Provider: 07/14/22 21:35 <HAMMAD Schneider - Last Filed: 07/14/22 20:45> Source: patient <HAMMAD Villarreal - Last Filed: 07/15/22 00:12> Mode of arrival: ambulatory <HAMMAD Villarreal - Last Filed: 07/15/22 00:12> Limitations: no limitations <HAMMAD Villarreal - Last Filed: 07/15/22 00:12> History of Present Illness HPI narrative: This is a 42-year-old male history of alcohol use disorder, you opiate use disorder, major depression, hep C, anxiety, PTSD, presenting to the emergency department with 3 days of shortness of breath, fatigue, malaise, chest discomfort, sore throat, headache (severe, diffuse per patient, no vision changes dizziness). Reprots multiple sick contacts at work who are covid + he is not vaccinated. <HAMMAD Villarreal - Last Filed: 07/15/22 00:12> Related Data Home medications: Home Medications Medication Instructions Recorded Confirmed albuterol sulfate 90 mcg/actuation 2 puff PO Q4H PRN wheezing 02/05/21 07/07/21 aerosol inhaler (ProAir HFA) methadone 10 mg/mL oral 100 mg PO DAILY 07/07/21 07/07/21 concentrate (Methadose) Previous Rx's Medication Instructions Recorded cephalexin 500 mg capsule 500 mg PO BID #14 caps 06/29/21 doxycycline monohydrate 100 mg 100 mg PO BID #20 tabs 06/29/21 tablet ibuprofen 600 mg tablet 600 mg PO Q8H PRN fever or pain 06/29/21 #20 tabs sertraline 50 mg tablet (Zoloft) 50 mg PO DAILY #14 tabs 07/10/21 prednisone 20 mg tablet 60 mg PO DAILY 4 days #12 tabs 11/25/21 <HAMMAD Schneider Last Filed: 07/14/22 20:45> Allergies/adverse reactions: Allergies Allergy/AdvReac Type Severity Reaction Status Date / Time No Known Allergies Allergy Verified 07/07/21 00:36 [No Known Allergies*] <HAMMAD Schneider - Last Filed: 07/14/22 20:45> Review of Systems Review of Systems: Constitutional : No Weight loss, No Fever, No Chills, + Fatigue, + Malaise ENT/Mouth : + sore throat, No Rhinorrhea Eyes: No Eye Pain, No Swelling, No Redness Cardiovascular : + Chest Pain, + SOB, No Dyspnea on Exertion, No Orthopnea, No Edema, No Palpitations Respiratory : No Cough, No Sputum, No Wheezing Gastrointestinal : No Nausea, No Vomiting, No Diarrhea, No Constipation, No abdominal Pain, No Hematochezia, No Melena Genitourinary : No Dysuria, No Urinary Frequency, No Hematuria, Musculoskeletal : No joint pain, + Myalgias, No Joint Swelling Skin : No Skin Lesions, No rash Neuro : No Weakness, No Numbness, No Dizziness, No Headache Psych : No Anxiety/Panic, No Depression All other systems reviewed and are negative <HAMMAD Villarreal - Last Filed: 07/15/22 00:12> Yes all other systems are reviewed and are negative <HAMMAD Villarreal - Last Filed: 07/15/22 00:12> [facility] Past Medical History Attestation statement: The following information was validated with the patient. <HAMMAD Villarreal - Last Filed: 07/15/22 00:12> Source: old records reviewed and nursing notes reviewed <HAMMAD Villarreal - Last Filed: 07/15/22 00:12> Medical History: Medical History Asthma Drug abuse and dependence Hypothyroid Methadone maintenance therapy patient No known health problems <HAMMAD Schneider - Last Filed: 07/14/22 20:45> Social History Social History: Social History Household Members: None Housing: Homeless Do you presently have visiting nurse or other home services: No Alcohol intake: unknown Patient Tobacco Use Status: Current everyday Tobacco user Tobacco use type: Cigarette Cigarette Packs Per Day: 1 Cigarettes Per Day: 20.0 Years Smoked: 25 e-Cigarette/Vaping Use: Never Used Second Hand Smoke Exposure: Yes Substance Use Type: Crack/Cocaine and Heroin Advance Directives: No Advance Directives Information Provided: No service: No Current occupational status: employed <HAMMAD Schneider - Last Filed: 07/14/22 20:45> Physical Exam ED Vital Signs: Vital Signs - 24 hr 07/14/22 20:39 07/14/22 23:13 Temperature 97.9 F 98.6 F Pulse Rate 86 75 Respiratory Rate 20 18 Blood Pressure 142/86 H 144/58 H Pulse Oximetry 94 94 Oxygen Delivery Method Room Air Room Air BMI result Body Mass Index 33.9 <HAMMAD Schneider - Last Filed: 07/14/22 20:45> Vital Signs - 24 hr 07/14/22 20:39 07/14/22 23:13 Temperature 97.9 F 98.6 F Pulse Rate 86 75 Respiratory Rate 20 18 Blood Pressure 142/86 H 144/58 H Pulse Oximetry 94 94 Oxygen Delivery Method Room Air Room Air BMI result Body Mass Index 33.9 Vital signs stable <HAMMAD Villarreal - Last Filed: 07/15/22 00:12> Appearance: Alert.? Oriented X3.? No acute distress.? Patient appears well nontoxic. Head: Normocephalic, atraumatic, no step-offs or deformities Eyes: Pupils equal, round and reactive to light.? ENT: Pharynx normal.? Neck: Normal inspection.? Neck supple.? CVS: Normal heart rate and rhythm.? Pulses normal.? Respiratory: No respiratory distress.? Breath sounds normal.? Abdomen: Soft and nontender.? Skin: Skin warm and dry.? Normal skin color.? Normal skin turgor.? Extremities: No lower extremity edema.? No calf ttp. 5/5 strength to bilateral upper and lower extremities Back: No midline tenderness, no C-spine tenderness, full range of motion, no CVA tenderness bilaterally Neuro: Oriented X 3.? No motor deficit.? No sensory deficit. CN 2-12 intact . Ambulating with steady gait normal coordination. Normal [id number] normal rapid alternating movements. GCS of 15. NIH stroke scale 0. Patient following commands. <HAMMAD Villarreal - Last Filed: 07/15/22 00:12> Course Course Course Narrative: RME - 42 yo male with history of mild intermittent asthma presents to the ER for evaluation of 1.5 weeks of body aches, coughing, headaches, sore throat, pain with deep breaths. Does not have an albuterol pump at home. 3 coworkers have COVID. He is unvaccianted. Spo2 94% on RA, breathing comfortably. Lungs clear. Will get COVID and flu swbs, CXR. Stable to go back to waiting room until treatment room is available. <HAMMAD Schneider - Last Filed: 07/14/22 20:45> Reevaluation(s) Reevaluation #1: CBC appears to be within elevated leukocytosis likely secondary to viral infection however this also does appear to be around patient's baseline based off of chart review. Patient with slight normocytic anemia again around patient's baseline. Chemistry with no acute findings. Troponin negative, EKG nonischemic unlikely ACS. D-dimer negative unlikely PE COVID, influenza negative. Chest x-ray with no acute intrathoracic disease. Chronic pleural parenchymal scarring noted to the left lung base. Head CT with no acute intracranial pathology. Low lying cerebellar tonsils with approximately 6 mm of cerebellar tonsillar ectopia. Likely viral infection. Educated patient on diagnosis and treatment plan, answered all question, patient verbalizes understanding. At this time patient will be discharged home, advised to return with new or worsening symptoms. Educated on worrisome signs and symptoms and when to return. At this time I feel comfortable discharge home. <HAMMAD Villarreal - Last Filed: 07/15/22 00:12> Time: 00:04 <HAMMAD Villarreal - Last Filed: 07/15/22 00:12> Medications Administered Discontinued Medications Generic Name Dose Route Start Last Admin Trade Name Freq PRN Reason Stop Dose Admin Ketorolac Tromethamine 30 mg 07/14/22 22:19 07/14/22 22:51 Ketorolac Tromethamine 15 Mg/Ml Vial IVPUSH 07/14/22 22:20 30 mg ONCE ONE Administration <HAMMAD Schneider - Last Filed: 07/14/22 20:45> Medications Administered Discontinued Medications Generic Name Dose Route Start Last Admin Trade Name Mikki PRN Reason Stop Dose Admin Ketorolac Tromethamine 30 mg 07/14/22 22:19 07/14/22 22:51 Ketorolac Tromethamine 15 Mg/Ml Vial IVPUSH 07/14/22 22:20 30 mg ONCE ONE Administration <HAMMAD Villarreal - Last Filed: 07/15/22 00:12> Medical Decision Making Medical Decision Making [facility] Narrative: 2230 42-year-old male presents with history and physical exam concerning for possible viral illness multiple sick contacts. Review of systems overwhelmingly positive. Physical exam benign. Likely viral illness unlikely intracranial hemorrhage, stroke, posterior stroke, peritonsillar abscess, epiglottitis, pneumonia, PE, ACS Plan labs, imaging for headache, viral panel <HAMMAD Villarreal - Last Filed: 07/15/22 00:12> Differential Diagnosis Differential Diagnoses: The differential diagnosis associated with the presentation includes <HAMMAD Villarreal - Last Filed: 07/15/22 00:12> Likely viral illness unlikely intracranial hemorrhage, stroke, posterior stroke, peritonsillar abscess, epiglottitis, pneumonia, PE, ACS <HAMMAD Villarreal - Last Filed: 07/15/22 00:12> Admission/Observation Consideration of admission/observation: Escalation of care including admission/observation considered <HAMMAD Villarreal - Last Filed: 07/15/22 00:12> Unlikely <HAMMAD Villarreal - Last Filed: 07/15/22 00:12> Lab Data [facility] Lab Attestation statement: I reviewed the patient's lab results. <HAMMAD Villarreal - Last Filed: 07/15/22 00:12> Result Diagrams: 07/14/22 22:47 07/14/22 22:47 <HAMMAD Schneider - Last Filed: 07/14/22 20:45> Labs: Lab Results 07/14/22 07/14/22 07/14/22 Range/Units 20:46 20:46 22:47 WBC 12.2 H (4.8-10.8) X10*3/uL RBC 4.58 L (4.60-5.80) X10*6/uL Hgb 13.8 L (14.0-18.0) g/dl Hct 41.4 L (42.0-52.0) % MCV 90.4 (80.0-98.0) fL MCH 30.1 (27.0-33.0) pg MCHC 33.3 (31.0-36.0) g/dl RDW 13.4 (11.0-16.0) % Plt Count 171 (160-400) X10*3/uL MPV 9.9 (9.4-12.4) fL Immature Gran % (Auto) 0.3 (0.0-0.4) % Neut % (Auto) 46.2 (45-73) % Lymph % (Auto) 42.5 H (20-40) % [place] % (Auto) 6.7 (2-11) % Eos % (Auto) 3.7 (0-4) % Baso % (Auto) 0.6 (0-2) % Lymph # (Auto) 5.2 H (1.2-4.9) X10*3/uL [place] # (Auto) 0.8 (0.1-1.2) X10*3/uL Eos # (Auto) 0.5 H (0.0-0.4) X10*3/uL Baso # (Auto) 0.1 (0.0-0.2) X10*3/uL Abs Immat Gran (auto) 0.04 H (0.00-0.03) X10*3/uL Absolute Neuts (auto) 5.6 (2.0-8.3) x10*3/uL Absolute Nucleated RBC 0.000 (0.0-0.012) X10*3/uL Nucleated RBC % (auto) 0.0 (0.0-0.2) /100WBC Smear Tech's Comments VERIFIED D-Dimer High Sensitivty NG/ML Sodium (135-145) mmol/L Potassium (3.3-5.1) mmol/L Chloride (96-108) mmol/L Carbon Dioxide (22-29) mmol/L Anion Gap (12-20) BUN (9-16) mg/dL Creatinine (0.5-1.4) mg/dL Estim Creat Clear Calc Estimated GFR Random Glucose (60-115) mg/dL Calcium (8.4-10.2) mg/dL Total Bilirubin (0.0-1.0) mg/dL AST (5-37) U/L ALT (0-40) U/L Alkaline Phosphatase (39-117) U/L Total Creatine Kinase (38-174) U/L Troponin I High Sens (<3.5-35.0) ng/L B-Natriuretic Peptide (<100) pg/mL Total Protein (6.5-8.0) g/dL Albumin (3.5-5.0) g/dL COVID-19 (JANEEN) Negative (Negative) COVID-19 Clin Com See Note Influenza Type A (ARIE) Negative (Negative) Influenza Type B (ARIE) Negative (Negative) Influenza A & B Note See Note 07/14/22 07/14/22 07/14/22 Range/Units 22:47 22:47 22:47 WBC (4.8-10.8) X10*3/uL RBC (4.60-5.80) X10*6/uL Hgb (14.0-18.0) g/dl Hct (42.0-52.0) % MCV (80.0-98.0) fL MCH (27.0-33.0) pg MCHC (31.0-36.0) g/dl RDW (11.0-16.0) % Plt Count (160-400) X10*3/uL MPV (9.4-12.4) fL Immature Gran % (Auto) (0.0-0.4) % Neut % (Auto) (45-73) % Lymph % (Auto) (20-40) % [place] % (Auto) (2-11) % Eos % (Auto) (0-4) % Baso % (Auto) (0-2) % Lymph # (Auto) (1.2-4.9) X10*3/uL [place] # (Auto) (0.1-1.2) X10*3/uL Eos # (Auto) (0.0-0.4) X10*3/uL Baso # (Auto) (0.0-0.2) X10*3/uL Abs Immat Gran (auto) (0.00-0.03) X10*3/uL Absolute Neuts (auto) (2.0-8.3) x10*3/uL Absolute Nucleated RBC (0.0-0.012) X10*3/uL Nucleated RBC % (auto) (0.0-0.2) /100WBC Smear Tech's Comments D-Dimer High Sensitivty < 150 NG/ML Sodium 138 (135-145) mmol/L Potassium 3.8 (3.3-5.1) mmol/L Chloride 105 (96-108) mmol/L Carbon Dioxide 24 (22-29) mmol/L Anion Gap 13 (12-20) BUN 18 H (9-16) mg/dL Creatinine 0.80 (0.5-1.4) mg/dL Estim Creat Clear Calc 154.7 Estimated GFR > 60 Random Glucose 76 (60-115) mg/dL Calcium 8.7 D (8.4-10.2) mg/dL Total Bilirubin 0.3 (0.0-1.0) mg/dL AST 66 H (5-37) U/L ALT 90 H (0-40) U/L Alkaline Phosphatase 99 (39-117) U/L Total Creatine Kinase 252 H (38-174) U/L Troponin I High Sens < 3.5 (<3.5-35.0) ng/L B-Natriuretic Peptide (<100) pg/mL Total Protein 7.1 (6.5-8.0) g/dL Albumin 3.8 (3.5-5.0) g/dL COVID-19 (JANEEN) (Negative) COVID-19 Clin Com Influenza Type A (ARIE) (Negative) Influenza Type B (ARIE) (Negative) Influenza A & B Note 07/14/22 Range/Units 22:47 WBC (4.8-10.8) X10*3/uL RBC (4.60-5.80) X10*6/uL Hgb (14.0-18.0) g/dl Hct (42.0-52.0) % MCV (80.0-98.0) fL MCH (27.0-33.0) pg MCHC (31.0-36.0) g/dl RDW (11.0-16.0) % Plt Count (160-400) X10*3/uL MPV (9.4-12.4) fL Immature Gran % (Auto) (0.0-0.4) % Neut % (Auto) (45-73) % Lymph % (Auto) (20-40) % [place] % (Auto) (2-11) % Eos % (Auto) (0-4) % Baso % (Auto) (0-2) % Lymph # (Auto) (1.2-4.9) X10*3/uL [place] # (Auto) (0.1-1.2) X10*3/uL Eos # (Auto) (0.0-0.4) X10*3/uL Baso # (Auto) (0.0-0.2) X10*3/uL Abs Immat Gran (auto) (0.00-0.03) X10*3/uL Absolute Neuts (auto) (2.0-8.3) x10*3/uL Absolute Nucleated RBC (0.0-0.012) X10*3/uL Nucleated RBC % (auto) (0.0-0.2) /100WBC Smear Tech's Comments D-Dimer High Sensitivty NG/ML Sodium (135-145) mmol/L Potassium (3.3-5.1) mmol/L Chloride (96-108) mmol/L Carbon Dioxide (22-29) mmol/L Anion Gap (12-20) BUN (9-16) mg/dL Creatinine (0.5-1.4) mg/dL Estim Creat Clear Calc Estimated GFR Random Glucose (60-115) mg/dL Calcium (8.4-10.2) mg/dL Total Bilirubin (0.0-1.0) mg/dL AST (5-37) U/L ALT (0-40) U/L Alkaline Phosphatase (39-117) U/L Total Creatine Kinase (38-174) U/L Troponin I High Sens (<3.5-35.0) ng/L B-Natriuretic Peptide 14 (<100) pg/mL Total Protein (6.5-8.0) g/dL Albumin (3.5-5.0) g/dL COVID-19 (JANEEN) (Negative) COVID-19 Clin Com Influenza Type A (ARIE) (Negative) Influenza Type B (ARIE) (Negative) Influenza A & B Note <HAMMAD Schneider - Last Filed: 07/14/22 20:45> Lab Results 07/14/22 07/14/22 07/14/22 Range/Units 20:46 20:46 22:47 WBC 12.2 H (4.8-10.8) X10*3/uL RBC 4.58 L (4.60-5.80) X10*6/uL Hgb 13.8 L (14.0-18.0) g/dl Hct 41.4 L (42.0-52.0) % MCV 90.4 (80.0-98.0) fL MCH 30.1 (27.0-33.0) pg MCHC 33.3 (31.0-36.0) g/dl RDW 13.4 (11.0-16.0) % Plt Count 171 (160-400) X10*3/uL MPV 9.9 (9.4-12.4) fL Immature Gran % (Auto) 0.3 (0.0-0.4) % Neut % (Auto) 46.2 (45-73) % Lymph % (Auto) 42.5 H (20-40) % [place] % (Auto) 6.7 (2-11) % Eos % (Auto) 3.7 (0-4) % Baso % (Auto) 0.6 (0-2) % Lymph # (Auto) 5.2 H (1.2-4.9) X10*3/uL [place] # (Auto) 0.8 (0.1-1.2) X10*3/uL Eos # (Auto) 0.5 H (0.0-0.4) X10*3/uL Baso # (Auto) 0.1 (0.0-0.2) X10*3/uL Abs Immat Gran (auto) 0.04 H (0.00-0.03) X10*3/uL Absolute Neuts (auto) 5.6 (2.0-8.3) x10*3/uL Absolute Nucleated RBC 0.000 (0.0-0.012) X10*3/uL Nucleated RBC % (auto) 0.0 (0.0-0.2) /100WBC Smear Tech's Comments VERIFIED D-Dimer High Sensitivty NG/ML Sodium (135-145) mmol/L Potassium (3.3-5.1) mmol/L Chloride (96-108) mmol/L Carbon Dioxide (22-29) mmol/L Anion Gap (12-20) BUN (9-16) mg/dL Creatinine (0.5-1.4) mg/dL Estim Creat Clear Calc Estimated GFR Random Glucose (60-115) mg/dL Calcium (8.4-10.2) mg/dL Total Bilirubin (0.0-1.0) mg/dL AST (5-37) U/L ALT (0-40) U/L Alkaline Phosphatase (39-117) U/L Total Creatine Kinase (38-174) U/L Troponin I High Sens (<3.5-35.0) ng/L B-Natriuretic Peptide (<100) pg/mL Total Protein (6.5-8.0) g/dL Albumin (3.5-5.0) g/dL COVID-19 (JANEEN) Negative (Negative) COVID-19 Clin Com See Note Influenza Type A (ARIE) Negative (Negative) Influenza Type B (ARIE) Negative (Negative) Influenza A & B Note See Note 07/14/22 07/14/22 07/14/22 Range/Units 22:47 22:47 22:47 WBC (4.8-10.8) X10*3/uL RBC (4.60-5.80) X10*6/uL Hgb (14.0-18.0) g/dl Hct (42.0-52.0) % MCV (80.0-98.0) fL MCH (27.0-33.0) pg MCHC (31.0-36.0) g/dl RDW (11.0-16.0) % Plt Count (160-400) X10*3/uL MPV (9.4-12.4) fL Immature Gran % (Auto) (0.0-0.4) % Neut % (Auto) (45-73) % Lymph % (Auto) (20-40) % [place] % (Auto) (2-11) % Eos % (Auto) (0-4) % Baso % (Auto) (0-2) % Lymph # (Auto) (1.2-4.9) X10*3/uL [place] # (Auto) (0.1-1.2) X10*3/uL Eos # (Auto) (0.0-0.4) X10*3/uL Baso # (Auto) (0.0-0.2) X10*3/uL Abs Immat Gran (auto) (0.00-0.03) X10*3/uL Absolute Neuts (auto) (2.0-8.3) x10*3/uL Absolute Nucleated RBC (0.0-0.012) X10*3/uL Nucleated RBC % (auto) (0.0-0.2) /100WBC Smear Tech's Comments D-Dimer High Sensitivty < 150 NG/ML Sodium 138 (135-145) mmol/L Potassium 3.8 (3.3-5.1) mmol/L Chloride 105 (96-108) mmol/L Carbon Dioxide 24 (22-29) mmol/L Anion Gap 13 (12-20) BUN 18 H (9-16) mg/dL Creatinine 0.80 (0.5-1.4) mg/dL Estim Creat Clear Calc 154.7 Estimated GFR > 60 Random Glucose 76 (60-115) mg/dL Calcium 8.7 D (8.4-10.2) mg/dL Total Bilirubin 0.3 (0.0-1.0) mg/dL AST 66 H (5-37) U/L ALT 90 H (0-40) U/L Alkaline Phosphatase 99 (39-117) U/L Total Creatine Kinase 252 H (38-174) U/L Troponin I High Sens < 3.5 (<3.5-35.0) ng/L B-Natriuretic Peptide (<100) pg/mL Total Protein 7.1 (6.5-8.0) g/dL Albumin 3.8 (3.5-5.0) g/dL COVID-19 (JANEEN) (Negative) COVID-19 Clin Com Influenza Type A (ARIE) (Negative) Influenza Type B (ARIE) (Negative) Influenza A & B Note 07/14/22 Range/Units 22:47 WBC (4.8-10.8) X10*3/uL RBC (4.60-5.80) X10*6/uL Hgb (14.0-18.0) g/dl Hct (42.0-52.0) % MCV (80.0-98.0) fL MCH (27.0-33.0) pg MCHC (31.0-36.0) g/dl RDW (11.0-16.0) % Plt Count (160-400) X10*3/uL MPV (9.4-12.4) fL Immature Gran % (Auto) (0.0-0.4) % Neut % (Auto) (45-73) % Lymph % (Auto) (20-40) % [place] % (Auto) (2-11) % Eos % (Auto) (0-4) % Baso % (Auto) (0-2) % Lymph # (Auto) (1.2-4.9) X10*3/uL [place] # (Auto) (0.1-1.2) X10*3/uL Eos # (Auto) (0.0-0.4) X10*3/uL Baso # (Auto) (0.0-0.2) X10*3/uL Abs Immat Gran (auto) (0.00-0.03) X10*3/uL Absolute Neuts (auto) (2.0-8.3) x10*3/uL Absolute Nucleated RBC (0.0-0.012) X10*3/uL Nucleated RBC % (auto) (0.0-0.2) /100WBC Smear Tech's Comments D-Dimer High Sensitivty NG/ML Sodium (135-145) mmol/L Potassium (3.3-5.1) mmol/L Chloride (96-108) mmol/L Carbon Dioxide (22-29) mmol/L Anion Gap (12-20) BUN (9-16) mg/dL Creatinine (0.5-1.4) mg/dL Estim Creat Clear Calc Estimated GFR Random Glucose (60-115) mg/dL Calcium (8.4-10.2) mg/dL Total Bilirubin (0.0-1.0) mg/dL AST (5-37) U/L ALT (0-40) U/L Alkaline Phosphatase (39-117) U/L Total Creatine Kinase (38-174) U/L Troponin I High Sens (<3.5-35.0) ng/L B-Natriuretic Peptide 14 (<100) pg/mL Total Protein (6.5-8.0) g/dL Albumin (3.5-5.0) g/dL COVID-19 (JANEEN) (Negative) COVID-19 Clin Com Influenza Type A (ARIE) (Negative) Influenza Type B (ARIE) (Negative) Influenza A & B Note <HAMMAD Villarreal - Last Filed: 07/15/22 00:12> Independent Interpretation I performed an independent interpretation of an: CT Scan <HAMMAD Villarreal - Last Filed: 07/15/22 00:12> Radiology Impression Discussion of test interpretation with radiology: I have reviewed the radiologist's reading. <HAMMAD Villarreal - Last Filed: 07/15/22 00:12> Core Measures AMI core measures followed: Yes <HAMMAD Villarreal - Last Filed: 07/15/22 00:12> Measure exclusions: not indicated <HAMMAD Villarreal - Last Filed: 07/15/22 00:12> Critical Care Time Critical Care Time Critical Care Time: No <HAMMAD Villarreal - Last Filed: 07/15/22 00:12> Discharge Plan Discharge Clinical Impression: Viral illness <HAMMAD Schneider - Last Filed: 07/14/22 20:45> Patient Disposition: Home, Self-Care <HAMMAD Schneider - Last Filed: 07/14/22 20:45> Instructions: Viral Syndrome (ED) <HAMMAD Schneider - Last Filed: 07/14/22 20:45> Additional Instructions: Take your medications as prescribed. If you were prescribed antibiotics today, it is important that you take your medication to their entirety, do not skip any doses, do not finish them early. Follow-up with your primary care provider this week. Return to the emergency department with new or worsening symptoms. Such as fevers, chills, chest pain, shortness of breath, nausea, vomiting, dizziness, headache, vision changes, lethargy In case of emergency call 911 Her laboratory studies were reassuring, your cardiac enzymes looked good, your screening test for blood clot was negative, COVID influenza negative. You can take ibuprofen every 6 hours, Tylenol every 4 hours as needed for pain or discomfort. <HAMMAD Schneider - Last Filed: 07/14/22 20:45> Prescriptions: No Action albuterol sulfate [ProAir HFA] 90 mcg/actuation HFA aerosol inhaler 2 puff PO Q4H PRN (Reason: wheezing) prednisone 20 mg tablet 60 mg PO DAILY 4 Days Qty: 12 0RF doxycycline monohydrate 100 mg tablet 100 mg PO BID Qty: 20 0RF ibuprofen 600 mg tablet 600 mg PO Q8H PRN (Reason: fever or pain) Qty: 20 0RF cephalexin 500 mg capsule 500 mg PO BID Qty: 14 0RF methadone [Methadose] 10 mg/mL Concentrate 100 mg PO DAILY sertraline [Zoloft] 50 mg tablet 50 mg PO DAILY Qty: 14 0RF <HAMMAD Schneider - Last Filed: 07/14/22 20:45> Referrals: Physician,Unknown J [Primary Care Provider] - 2 days <HAMMAD Schneider - Last Filed: 07/14/22 20:45> Stand Alone Forms: Work/School Release <HAMMAD Schneider - Last Filed: 07/14/22 20:45>
[2022-07-14 21:12] LABS: COVID-19 Test Negative (Negative); IDNOW Serial# 16C4AD1C
[2022-07-14 21:17] LABS: IDNOW Serial# BCCEAD1C
[2022-07-14 21:18] LABS: Influenza A Negative (Negative); Influenza B2 Negative (Negative)
[2022-07-14] MEDS: Ketorolac Tromethamine 15 MG/ML VIAL 30 MG IVPUSH (22:51)
[2022-07-14 22:57] LABS: Basophils Absolute Auto 0.1 X10*3/uL (0.0-0.2); Basophils Percent Auto 0.6 % (0-2); Eosinophils Absolute Auto 0.5 X10*3/uL (0.0-0.4); Eosinophils Percent Auto 3.7 % (0-4); Hematocrit 41.4 % (42.0-52.0); Hemoglobin 13.8 g/dl (14.0-18.0); Imm Gran Abs Auto 0.04 X10*3/uL (0.00-0.03); Imm Gran Pct Auto 0.3 % (0.0-0.4); Lymphocytes Absolute Auto 5.2 X10*3/uL (1.2-4.9); Lymphocytes Percent Auto 42.5 % (20-40); MANUAL DIFF FLAG SCAN; Mean Corpuscular HGB Conc 33.3 g/dl (31.0-36.0); Mean Corpuscular Hemoglobin 30.1 pg (27.0-33.0); Mean Corpuscular Volume 90.4 fL (80.0-98.0); Mean Platelet Volume 9.9 fL (9.4-12.4); Monocytes Absolute Auto 0.8 X10*3/uL (0.1-1.2); Monocytes Percent Auto 6.7 % (2-11); Neutrophils Absolute Auto 5.6 x10*3/uL (2.0-8.3); Neutrophils Percent Auto 46.2 % (45-73); Platelet Count 171 X10*3/uL (160-400); Red Blood Count 4.58 X10*6/uL (4.60-5.80); Red Cell Distribution Width 13.4 % (11.0-16.0); SCAN SMEAR FLAG 1; White Blood Count 12.2 X10*3/uL (4.8-10.8)
[2022-07-14 23:02] LABS: D Dimer High Sensitivity < 150 NG/ML
[2022-07-14 23:13] VITALS: BP 144/58; PULSE 75; RESP 18; TEMP 37; O2SAT 94
[2022-07-14 23:13] LABS: B Type Natriuretic Peptide 14 pg/mL (<100)
[2022-07-14 23:25] LABS: Alanine Aminotransferase 90 U/L (0-40); Albumin Level 3.8 g/dL (3.5-5.0); Alkaline Phosphatase 99 U/L (39-117); Anion Gap 13 (12-20); Aspartate Amino Transferase 66 U/L (5-37); Bilirubin Total 0.3 mg/dL (0.0-1.0); Blood Urea Nitrogen 18 mg/dL (9-16); Calcium 8.7 mg/dL (8.4-10.2); Carbon Dioxide 24 mmol/L (22-29); Chloride 105 mmol/L (96-108); Creatinine Clr Calc Pharmacy 154.7; Estimated Glomerular Filt Rate > 60; Glucose Random 76 mg/dL (60-115); Potassium 3.8 mmol/L (3.3-5.1); Sodium 138 mmol/L (135-145); Total Protein 7.1 g/dL (6.5-8.0); Troponin-I High Sensitivity < 3.5 ng/L (<3.5-35.0)
[2022-07-14 23:29] LABS: SLIDE REVIEW VERIFIED
--- NOTE | 2022-07-14 23:41 | ECG_ITS ---
Test Reason : sob Blood Pressure : / mmHG Vent. Rate : 070 BPM Atrial Rate : 070 BPM P-R Int : 158 ms QRS Dur : 094 ms QT Int : 384 ms P-R-T Axes : 038 047 015 degrees QTc Int : 414 ms Normal sinus rhythm Normal ECG No previous ECGs available Referred By: Jorje Lux Electronically Signed By:Te Carrillo
[2022-07-15 00:14] VITALS: PULSE 78; RESP 16; TEMP 37.1; O2SAT 96
== END 2022-07-15 00:19 | disposition home or self-care (01) ==
PROVIDERS: Physician Assistant; Emergency Provider Internal Medicine
DX: B34.9 Viral infection, unspecified (principal); M79.10 Myalgia, unspecified site; F11.90 Opioid use, unspecified, uncomplicated; R06.02 Shortness of breath; R51.9 Headache, unspecified; R07.89 Other chest pain; Z20.822 Contact with and (suspected) exposure to COVID-19; Z20.828 Contact with and (suspected) exposure to other viral communicable diseases; Z79.899 Other long term (current) drug therapy
CPT/HCPCS: 36415; 70450; 71046; 80053; 82550; 83880; 84484; 85025; 85379; 87502; 87635; 93005; 96374; 99284; J1885

== ENCOUNTER 2022-11-04 21:58 | Emergency (ER) | payer OTHER, SELFPAY ==
[2022-11-04 22:08] VITALS: BP 155/71; PULSE 87; RESP 18; TEMP 36.7; O2SAT 94; BMI 35.3
--- NOTE | 2022-11-05 00:09 | ED.DENTAL ---
HPI - Dental/Oral General Chief complaint: Dental/Oral Stated complaint: tooth ache, right ring finger inj Time Seen by Provider: 11/04/22 23:43 Source: patient Mode of arrival: ambulatory Limitations: no limitations History of Present Illness HPI Narrative: Patient with history of cocaine use and opiate use in the past with chronic dental caries edentulous upper gum with chronic pain in the lower right premolar. Comes for increased pain for last 4 days no increased sensation of cold no fever no swelling of the face unable to see the dentist Related Data Home Medications Medication Instructions Recorded Confirmed albuterol sulfate 90 mcg/actuation 2 puff PO Q4H PRN wheezing 02/05/21 07/07/21 aerosol inhaler (ProAir HFA) methadone 10 mg/mL oral 100 mg PO DAILY 07/07/21 07/07/21 concentrate (Methadose) Previous Rx's Medication Instructions Recorded cephalexin 500 mg capsule 500 mg PO BID #14 caps 06/29/21 doxycycline monohydrate 100 mg 100 mg PO BID #20 tabs 06/29/21 tablet ibuprofen 600 mg tablet 600 mg PO Q8H PRN fever or pain 06/29/21 #20 tabs sertraline 50 mg tablet (Zoloft) 50 mg PO DAILY #14 tabs 07/10/21 prednisone 20 mg tablet 60 mg PO DAILY 4 days #12 tabs 11/25/21 albuterol sulfate 90 mcg/actuation 2 inh inhalation Q4-6H PRN 07/15/22 breath activated powder inhaler shortness of breath or wheezing #1 ea prednisone 20 mg tablet 40 mg PO DAILY 5 days #10 tabs 07/15/22 amoxicillin 875 mg-potassium 1 tab PO BID #20 tabs 11/05/22 clavulanate 125 mg tablet tramadol 50 mg tablet 50 mg PO Q6H PRN pain #20 tabs 11/05/22 Allergies Allergy/AdvReac Type Severity Reaction Status Date / Time No Known Allergies Allergy Verified 11/04/22 22:12 [No Known Allergies*] Review of Systems Review of Systems: Yes all other systems are reviewed and are negative PMFSH Past Medical History Medical History Asthma Drug abuse and dependence Hypothyroid Methadone maintenance therapy patient No known health problems Social History Social History Household Members: None Housing: Homeless Do you presently have visiting nurse or other home services: No Alcohol intake: unknown Patient Tobacco Use Status: Current everyday Tobacco user Tobacco use type: Cigarette Cigarette Packs Per Day: 1 Cigarettes Per Day: 20.0 Years Smoked: 25 Smoked in Last 30 Days: Yes e-Cigarette/Vaping Use: Never Used Second Hand Smoke Exposure: Yes Use of substances other than those prescribed or required for medical reasons: No Substance Use Type: Crack/Cocaine and Heroin service: No Current occupational status: employed Physical Exam Vital Signs: Vital Signs: Last Vital Signs Temp 98.1 F 11/04/22 22:08 Pulse 87 11/04/22 22:08 Resp 18 11/04/22 22:08 BP 155/71 H 11/04/22 22:08 Pulse Ox 94 11/04/22 22:08 O2 Del Method Room Air 11/04/22 22:08 BMI result Body Mass Index 35.3 Appearance: Alert. Oriented X3. No acute distress. ENT: Pharynx normal. Oral Mucosa moist edentulous upper gum tenderness right lower no molars both sides no gum swelling no signs of abscess Neck: Normal inspection. Neck supple. CVS: Normal heart rate and rhythm. Pulses normal. Respiratory: No respiratory distress. Equal air entry bilateral, Neuro: Oriented X 3. Discharge Plan Discharge Clinical Impression: Dental caries Patient Disposition: Home, Self-Care Instructions: Toothache (ED) Additional Instructions: Take pain medication and antibiotic as prescribed Follow-up with dentist Prescriptions: New tramadol 50 mg tablet 50 mg PO Q6H PRN (Reason: pain) Qty: 20 0RF amoxicillin-pot clavulanate 875-125 mg tablet 1 tab PO BID Qty: 20 0RF No Action albuterol sulfate [ProAir HFA] 90 mcg/actuation HFA aerosol inhaler 2 puff PO Q4H PRN (Reason: wheezing) prednisone 20 mg tablet 60 mg PO DAILY 4 Days Qty: 12 0RF doxycycline monohydrate 100 mg tablet 100 mg PO BID Qty: 20 0RF ibuprofen 600 mg tablet 600 mg PO Q8H PRN (Reason: fever or pain) Qty: 20 0RF cephalexin 500 mg capsule 500 mg PO BID Qty: 14 0RF methadone [Methadose] 10 mg/mL Concentrate 100 mg PO DAILY sertraline [Zoloft] 50 mg tablet 50 mg PO DAILY Qty: 14 0RF albuterol sulfate 90 mcg/actuation aerosol powdr breath activated 2 inh inhalation Q4-6H PRN (Reason: shortness of breath or wheezing) Qty: 1 0RF prednisone 20 mg tablet 40 mg PO DAILY 5 Days Qty: 10 0RF
[2022-11-05] MEDS: Amoxicillin/Potassium Clav 875 MG TABLET PO (00:14)
[2022-11-05] MEDS: traMADoL HCL 50 MG TABLET PO (00:14)
== END 2022-11-05 01:34 | disposition home or self-care (01) ==
PROVIDERS: Emergency Provider Internal Medicine
DX: K02.9 Dental caries, unspecified (principal); F17.210 Nicotine dependence, cigarettes, uncomplicated; F14.10 Cocaine abuse, uncomplicated; F11.10 Opioid abuse, uncomplicated; Z71.6 Tobacco abuse counseling; Z79.899 Other long term (current) drug therapy
CPT/HCPCS: 99283; 99284

== ENCOUNTER 2022-12-24 17:39 | Emergency (ER) | payer OTHER, SELFPAY ==
--- NOTE | ~2022-12-24 | XR_ITS ---
EXAMINATION: XR HAND, LEFT CLINICAL INFORMATION: Pain, injury. COMPARISON: None available. TECHNIQUE: PA, lateral, and oblique views of the left hand. FINDINGS: No acute fractures or subluxation. Negative ulnar variance with ulnar impingement on the distal radius causing cortical distortion. Mild widening of the scapholunate interval. No unexpected radiopaque foreign bodies. XR/XR hand LT 2V IMPRESSION: 1. Negative ulnar variance with ulnar impingement on the distal radius. 2. Mild widening of the scapholunate interval which could indicate underlying scapholunate ligament injury. Further evaluation with MRI could be obtained if clinically indicated.
[2022-12-24 17:59] VITALS: BP 122/69; PULSE 83; RESP 20; TEMP 36.7; O2SAT 93; BMI 35.3
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
[2022-12-24 20:00] VITALS: BP 124/66; PULSE 70; RESP 16; TEMP 36.7; O2SAT 93
[2022-12-24] MEDS: Ketorolac Tromethamine 15 MG/ML VIAL 30 MG IM (21:40)
--- NOTE | 2022-12-24 21:44 | PC.NURSE ---
pt aox4, medicated per sep. tech will splint hand. discharge after
--- NOTE | 2022-12-24 22:12 | MHC.EDTECH ---
Brought patient cup of ling roxanna with ice.
== END 2022-12-24 23:25 | disposition home or self-care (01) ==
PROVIDERS: Emergency Provider Internal Medicine; PCP Internal Medicine
DX: M79.642 Pain in left hand (principal); F17.210 Nicotine dependence, cigarettes, uncomplicated; Z71.6 Tobacco abuse counseling
CPT/HCPCS: 73120; 96372; 99284; J1885

== ENCOUNTER 2023-01-22 10:09 | Emergency (ER) | payer OTHER, SELFPAY ==
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
--- NOTE | ~2023-01-22 | XR_ITS ---
EXAMINATION: XR KNEE, LEFT CLINICAL INFORMATION: Pain and swelling COMPARISON: None available. TECHNIQUE: Two views of the left knee. FINDINGS: Bone alignment is normal. No fracture or dislocation. Mild degenerative changes at the patellofemoral joint. No joint effusion. XR/XR knee LT 2V IMPRESSION: Mild degenerative changes at the patellofemoral joint.
[2023-01-22 10:13] VITALS: BP 122/75; PULSE 66; RESP 18; TEMP 36.3; O2SAT 94; BMI 35.7
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
[2023-01-22 10:56] LABS: IDNOW Serial# 08D9AD1C; Strep A Nucleic Acid Negative (Negative)
[2023-01-22 11:58] LABS: Influenza A PCR NEGATIVE (Negative); Influenza B PCR NEGATIVE (Negative); Resp Syncy Virus RNA Qual PCR NEGATIVE (Negative); SARS COV2 PCR INHOUSE NEGATIVE (Negative)
[2023-01-22 13:24] VITALS: BP 127/75; PULSE 56; RESP 12; O2SAT 96
[2023-01-22] MEDS: Ketorolac Tromethamine 30 MG/ML VIAL IM (13:25)
== END 2023-01-22 13:37 | disposition home or self-care (01) ==
PROVIDERS: Registered Nurse Emergency; Emergency Provider Emergency Medicine; PCP Internal Medicine
DX: M17.12 Unilateral primary osteoarthritis, left knee (principal); M79.642 Pain in left hand; M25.562 Pain in left knee; M25.462 Effusion, left knee; Z20.822 Contact with and (suspected) exposure to COVID-19
CPT/HCPCS: 0241U; 73130; 73560; 87651; 96372; 99284; J1885

== ENCOUNTER 2023-05-14 18:41 | Emergency (ER) | payer SELFPAY ==
[2023-05-14 19:17] VITALS: BP 127/80; PULSE 78; RESP 18; TEMP 36.9; O2SAT 98; BMI 35.7
--- NOTE | 2023-05-14 19:21 | ED.DENTAL ---
HPI - Dental/Oral General Chief complaint: General Medical Stated complaint: teeth pain Time Seen by Provider: 05/14/23 19:22 Source: patient Mode of arrival: ambulatory Limitations: no limitations History of Present Illness HPI Narrative: 42-year-old male with a history of polysubstance use, alcohol use disorder presents to the ER with complaints of upper dental pain. Patient denies any fevers, chills, difficulty breathing, difficulty swallowing. Related Data Home Medications Medication Instructions Recorded Confirmed albuterol sulfate 90 mcg/actuation 2 puff PO Q4H PRN wheezing 02/05/21 07/07/21 aerosol inhaler (ProAir HFA) methadone 10 mg/mL oral 100 mg PO DAILY 07/07/21 07/07/21 concentrate (Methadose) Previous Rx's Medication Instructions Recorded cephalexin 500 mg capsule 500 mg PO BID #14 caps 06/29/21 doxycycline monohydrate 100 mg 100 mg PO BID #20 tabs 06/29/21 tablet ibuprofen 600 mg tablet 600 mg PO Q8H PRN fever or pain 06/29/21 #20 tabs sertraline 50 mg tablet (Zoloft) 50 mg PO DAILY #14 tabs 07/10/21 prednisone 20 mg tablet 60 mg (3 x 20 mg) PO DAILY 4 days 11/25/21 #12 tabs albuterol sulfate 90 mcg/actuation 2 inh inhalation Q4-6H PRN 07/15/22 breath activated powder inhaler shortness of breath or wheezing #1 ea prednisone 20 mg tablet 40 mg (2 x 20 mg) PO DAILY 5 days 07/15/22 #10 tabs amoxicillin 875 mg-potassium 1 tab PO BID #20 tabs 11/05/22 clavulanate 125 mg tablet tramadol 50 mg tablet 50 mg PO Q6H PRN pain #20 tabs 11/05/22 ketorolac 10 mg tablet 10 mg PO TID PRN pain 5 days #15 12/24/22 tabs amoxicillin 875 mg-potassium 1 tab PO BID #14 tabs 05/14/23 clavulanate 125 mg tablet Allergies Allergy/AdvReac Type Severity Reaction Status Date / Time No Known Allergies Allergy Verified 12/24/22 18:02 [No Known Allergies*] Review of Systems Review of Systems: Yes all other systems are reviewed and are negative Constitutional: Constitutional: Reports no additional constitutional complaints, Denies body ache(s), Denies chills, Denies fever(s), Denies headache(s) and Denies weakness Eyes: Eyes: Reports no additional eye complaints and Denies change in vision ENT: Reports system reviewed and no additional complaints, except as documented, Reports dental pain, Denies dizziness, Denies headache(s), Denies nasal congestion, Denies nasal discharge and Denies neck pain Cardiovascular: Cardiovascular: Reports no additional cardiovascular complaints, Denies chest pain, Denies leg edema and Denies dyspnea Respiratory: Respiratory: Reports no additional respiratory complaints, Denies cough and Denies dyspnea Gastrointestinal: Gastrointestinal: Reports no additional gastrointestinal complaints, Denies abdominal pain, Denies diarrhea, Denies nausea and Denies vomiting Genitourinary: Genitourinary: Denies urinary incontinence Musculoskeletal: Musculoskeletal: Reports no additional musculoskeletal complaints, Denies back pain, Denies arthralgias, Denies joint swelling, Denies neck pain, Denies numbness and Denies tingling Integumentary/Breasts: Skin/Breast: Reports system reviewed and no additional complaints, except as docu and Denies rash Neurologic: Reports system reviewed and no additional complaints, except as documented, Denies Abnormal speech present, Denies dizziness, Denies headache(s), Denies numbness, Denies tingling and Denies weakness PMFSH Past Medical History Attestation statement: The following information was validated with the patient. Source: old records reviewed and nursing notes reviewed Medical History Hypothyroid Asthma Methadone maintenance therapy patient Drug abuse and dependence No known health problems Social History Social History Household Members: None Housing: Homeless Do you presently have visiting nurse or other home services: No Alcohol intake: current Alcohol intake frequency: does not drink Patient Tobacco Use Status: Current everyday Tobacco user Tobacco use type: Cigarette Cigarette Packs Per Day: 1 Cigarettes Per Day: 20.0 Years Smoked: 25 e-Cigarette/Vaping Use: Never Used Second Hand Smoke Exposure: Yes Substance Use Type: Crack/Cocaine and Heroin Advance Directives: No Advance Directives Information Provided: No service: No Current occupational status: employed Physical Exam Vital Signs: Vital Signs: Last Vital Signs Temp 98.4 F 11/11/23 19:17 Pulse 78 05/14/23 19:17 Resp 18 05/14/23 19:17 BP 127/80 05/14/23 19:17 Pulse Ox 98 05/14/23 19:17 O2 Del Method Room Air 05/14/23 19:17 BMI result Body Mass Index 35.7 Const: General: cooperative, healthy appearing, comfortable and no acute distress Orientation/consciousness: patient oriented x3 Limitations: no limitations HEENT: Other: no trismus Head: Yes normal to inspection Ears: hearing grossly normal bilaterally and TM's normal bilaterally General nose exam: Normal external nose present Face and sinus: Yes normal facial exam Mouth: Normal oral and palatal mucosa present Teeth and gingiva: caries Teeth image: 1. Absent teeth extensive caries on the lower aspect. There is erythema, tenderness to the gum line. There is no obvious abscess noted Throat: Yes posterior oropharynx normal, Yes tonsils normal and Yes uvula midline Eyes: General: appearance normal, both eyes and all related structures Pupils: Equal, round and reactive pupils present Neck: Neck: Yes normal visual inspection, Yes full ROM, Yes no lymphadenopathy and Yes no meningeal signs Chest: Chest palpation & inspection: normal inspection of the chest Resp: Effort & Inspection: normal respiratory effort Auscultation: clear to auscultation bilaterally Cardio: Rate: regular rate Rhythm: regular rhythm Peripheral pulses: Peripheral pulses 2+ throughout GI: Inspection: Yes normal to inspection Palpation (GI): Soft to palpation and nontender Auscultation: normal bowel sounds Back/Spine/Pelvis: Thoracic/Lumbar Spine: thoracic and lumbar spine normal to inspection Skin: General skin exam: no rashes or lesions noted Neuro: General: patient oriented x3, no meningeal signs, no focal motor deficits and normal sensation to monofilament Cranial nerves: Yes Equal, round and reactive pupils present Cognition (Neuro): normal cognition Speech: No Abnormal speech present Gait exam (Neuro): Normal gait present Motor exam (neuro): 5/5 motor strength present throughout Extrem: General: Yes normal to inspection Medications Administered Discontinued Medications Generic Name Dose Route Start Last Admin Trade Name Freq PRN Reason Stop Dose Admin Ketorolac Tromethamine 60 mg 05/14/23 19:22 05/14/23 19:26 Ketorolac Tromethamine 60 Mg/2 Ml Vial IM 05/14/23 19:23 60 mg ONCE ONE Administration Medical Decision Making Medical Decision Making MDM Narrative: 42-year-old male with a history of polysubstance use, alcohol use disorder presents to the ER with complaints of upper dental pain. Patient denies any fevers, chills, difficulty breathing, difficulty swallowing. See PE findings. Patient given Toradol IM for pain will discharge home with oral antibiotic with recommendations to follow-up with dental clinic. Reviewed worrisome signs and symptoms of when to return to the emergency room. Comfortable plan for discharge home. Differential Diagnosis Differential Diagnoses: The differential diagnosis associated with the presentation includes Low concern for dental abscess, Sha's angina Admission/Observation Consideration of admission/observation: Escalation of care including admission/observation considered evidence of Sha's angina to suggest need for advanced imaging, OMF consultation or transfer to tertiary care center Tests considered The following testing was considered but not selected: no evidence of Sha's angina to suggest need for advanced imaging Prescription Management I considered prescription management with: Pain Medication and Antibiotic Social Determinants Patient?s care significantly limited by Social Determinants of Health including: Alcoholism and drug addiction in family and Problems related to primary support group Discharge Plan Discharge Clinical Impression: Toothache Patient Disposition: Home, Self-Care Instructions: Toothache (ED) Additional Instructions: saltwater gargles topical Orajel established a dental Prescriptions: New amoxicillin-pot clavulanate 875-125 mg tablet 1 tab PO BID Qty: 14 0RF No Action albuterol sulfate [ProAir HFA] 90 mcg/actuation HFA aerosol inhaler 2 puff PO Q4H PRN (Reason: wheezing) prednisone 20 mg tablet 60 mg PO DAILY 4 Days Qty: 12 0RF doxycycline monohydrate 100 mg tablet 100 mg PO BID Qty: 20 0RF ibuprofen 600 mg tablet 600 mg PO Q8H PRN (Reason: fever or pain) Qty: 20 0RF cephalexin 500 mg capsule 500 mg PO BID Qty: 14 0RF methadone [Methadose] 10 mg/mL Concentrate 100 mg PO DAILY sertraline [Zoloft] 50 mg tablet 50 mg PO DAILY Qty: 14 0RF albuterol sulfate 90 mcg/actuation aerosol powdr breath activated 2 inh inhalation Q4-6H PRN (Reason: shortness of breath or wheezing) Qty: 1 0RF prednisone 20 mg tablet 40 mg PO DAILY 5 Days Qty: 10 0RF ketorolac 10 mg tablet 10 mg PO TID PRN (Reason: pain) 5 Days Qty: 15 0RF tramadol 50 mg tablet 50 mg PO Q6H PRN (Reason: pain) Qty: 20 0RF amoxicillin-pot clavulanate 875-125 mg tablet 1 tab PO BID Qty: 20 0RF Referrals: Freya Faustin, [employer] [facility] [Primary Care Provider] - 1 week
[2023-05-14] MEDS: Ketorolac Tromethamine 60 MG/2 ML VIAL IM (19:26)
== END 2023-05-14 19:31 | disposition home or self-care (01) ==
PROVIDERS: Emergency Provider Student in an Organized Health Care Education/Training Program; PCP Nurse Practitioner Family
DX: K08.89 Other specified disorders of teeth and supporting structures (principal); F17.210 Nicotine dependence, cigarettes, uncomplicated
CPT/HCPCS: 96372; 99283; 99284; J1885

== ENCOUNTER 2023-06-01 20:26 | Emergency (ER) | payer SELFPAY ==
[2023-06-01 21:06] VITALS: BP 129/80; PULSE 81; RESP 18; TEMP 36; O2SAT 96; BMI 36.3
== END 2023-06-01 23:52 | disposition left against medical advice (07) ==
PROVIDERS: Emergency Provider Emergency Medicine
DX: K08.89 Other specified disorders of teeth and supporting structures (principal)
CPT/HCPCS: 99281

== ENCOUNTER 2023-06-02 20:28 | Emergency (ER) | payer SELFPAY ==
[2023-06-02 20:32] VITALS: BP 156/96; PULSE 95; RESP 16; TEMP 35.8; O2SAT 98; BMI 24.4
--- NOTE | 2023-06-02 20:38 | ED_ITS ---
HPI - General Adult General Chief complaint: Dental/Oral Stated complaint: mouth infection, seen yesterday? Time Seen by Provider: 06/02/23 20:38 Source: patient Mode of arrival: ambulatory Limitations: no limitations History of Present Illness HPI narrative: Patient is a 42-year-old male with history of substance use disorder presenting to the emergency department with complaint of left upper jaw pain. Reports swelling as well. Seen on 05/14, prescribed antibiotics, states took full course but pain and swelling returned. States he checked into the emergency department yesterday but left from the waiting room due to long wait time prior to being seen. Denies fevers. Denies radiation of pain to ear or jaw. MD complaint: Jaw pain Onset (ago): day(s) Location: mouth Radiation: non-radiation Severity: severe Quality: aching Pain Consistency: constant Relieving factors: none Exacerbating factors: eating Associated symptoms: denies other symptoms Treatments prior to arrival: none Related Data Home Medications Medication Instructions Recorded Confirmed albuterol sulfate 90 mcg/actuation 2 puff PO Q4H PRN wheezing 02/05/21 07/07/21 aerosol inhaler (ProAir HFA) methadone 10 mg/mL oral 100 mg PO DAILY 07/07/21 07/07/21 concentrate (Methadose) Previous Rx's Medication Instructions Recorded cephalexin 500 mg capsule 500 mg PO BID #14 caps 06/29/21 doxycycline monohydrate 100 mg 100 mg PO BID #20 tabs 06/29/21 tablet ibuprofen 600 mg tablet 600 mg PO Q8H PRN fever or pain 06/29/21 #20 tabs sertraline 50 mg tablet (Zoloft) 50 mg PO DAILY #14 tabs 07/10/21 prednisone 20 mg tablet 60 mg (3 x 20 mg) PO DAILY 4 days 11/25/21 #12 tabs albuterol sulfate 90 mcg/actuation 2 inh inhalation Q4-6H PRN 07/15/22 breath activated powder inhaler shortness of breath or wheezing #1 ea prednisone 20 mg tablet 40 mg (2 x 20 mg) PO DAILY 5 days 07/15/22 #10 tabs amoxicillin 875 mg-potassium 1 tab PO BID #20 tabs 11/05/22 clavulanate 125 mg tablet tramadol 50 mg tablet 50 mg PO Q6H PRN pain #20 tabs 11/05/22 ketorolac 10 mg tablet 10 mg PO TID PRN pain 5 days #15 12/24/22 tabs amoxicillin 875 mg-potassium 1 tab PO BID #14 tabs 05/14/23 clavulanate 125 mg tablet amoxicillin 875 mg-potassium 1 tab PO BID #14 tabs 06/02/23 clavulanate 125 mg tablet Allergies Allergy/AdvReac Type Severity Reaction Status Date / Time No Known Allergies Allergy Verified 06/01/23 21:05 [No Known Allergies*] Review of Systems 2 Review of Systems: As per HPI. Yes all other systems are reviewed and are negative Constitutional: Constitutional: Reports as per HPI [facility] Past Medical History Medical History Hypothyroid Asthma Methadone maintenance therapy patient Drug abuse and dependence No known health problems Social History Social History Household Members: None Housing: Homeless Do you presently have visiting nurse or other home services: No Alcohol intake: current Alcohol intake frequency: does not drink Patient Tobacco Use Status: Current everyday Tobacco user Tobacco use type: Cigarette Cigarette Packs Per Day: 1 Cigarettes Per Day: 20.0 Years Smoked: 25 e-Cigarette/Vaping Use: Never Used Second Hand Smoke Exposure: Yes Substance Use Type: Crack/Cocaine and Heroin service: No Current occupational status: employed Physical Exam ED Vital Signs: Vital Signs - 24 hr 06/02/23 20:32 Temperature 96.4 F L Pulse Rate 95 Respiratory Rate 16 Blood Pressure 156/96 H Pulse Oximetry 98 Oxygen Delivery Method Room Air BMI result Body Mass Index 24.4 Vital signs have been reviewed and appear to be correct. Blood pressure elevated. Heart rate normal. Respiratory rate normal. Temperature normal. Oxygen saturation normal. Const General: cooperative, healthy appearing and no acute distress Orientation/consciousness: oriented to person, oriented to place, oriented to time and patient oriented x3 Limitations: no limitations HENMT Head: Yes normocephalic and Yes atraumatic Ears: external ears normal and TM's normal bilaterally General nose exam: Normal external nose present Face and sinus: Yes face symmetric Mouth: oropharynx normal and moist mucous membranes Teeth and gingiva: poor dentition Teeth image: 2 1. absent teeth, diffuse dental carries lower teeth, erythema and tenderness to left upper gums in area of 14-16, no fluctuance, no drainage Throat: Yes uvula midline Eyes Pupils: Equal, round and reactive pupils present Neck Neck: Yes normal visual inspection and Yes supple Lymphatic: no lymphadenopathy noted Resp Effort & Inspection: normal respiratory effort and able to speak in complete sentences Auscultation: clear to auscultation bilaterally Cardio Rate: regular rate Rhythm: regular rhythm Heart sounds: S1 normal heart sound present and S2 normal heart sound present Skin General skin exam: elasticity normal and turgor normal Neuro General: oriented to person, oriented to place, oriented to time, patient oriented x3, moves all extremities, no focal motor deficits and CN's II-XI intact bilaterally Cranial nerves: Yes Equal, round and reactive pupils present Cognition (Neuro): normal cognition Extrem General: Yes full ROM, Yes no pedal edema and Yes no calf tenderness Psych Mental Status: mental status grossly normal Affect: normal affect Thought process: Normal thought process present Medical Decision Making Medical Decision Making [facility] Narrative: Patient is a 42-year-old male with history of substance use disorder presenting to the emergency department with complaint of left upper jaw pain. On exam patient is awake, A+Ox3, BP elevated, VS otherwise WNL, afebrile, normal neurological exam without focal deficits, physical exam findings as above. Given reported symptoms and physical exam findings, initial differential includes toothache, dental infection, dental abscess. No evidence of Sha's angina. Will treat with augmentin as patient states he cannot get appointment with dentist until june. Return precautions discussed. Patient verbalized understanding of and agreement with plan. Differential Diagnosis Differential Diagnoses: The differential diagnosis associated with the presentation includes As per [facility] External Record Review External record reviewed: Inpatient record, Office record and Outpatient record Prescription Management I considered prescription management with: Antibiotic Discharge Plan Discharge Clinical Impression: Pain, dental Patient Disposition: Home, Self-Care Instructions: Toothache (ED) Additional Instructions: You are being prescribed antibiotics for a dental infection, please complete the full course as prescribed. You should also gargle with salt water several times daily. You can take 650 mg Tylenol or 600 mg ibuprofen every 6 hours as needed for discomfort. Please keep the follow-up appointment with your dentist. Return to the emergency department if you develop worsening pain, drainage from the area, fever, swelling to jaw or throat, difficulty swallowing or breathing or any other concerning symptoms. Prescriptions: New amoxicillin-pot clavulanate 875-125 mg tablet 1 tab PO BID Qty: 14 0RF No Action albuterol sulfate [ProAir HFA] 90 mcg/actuation HFA aerosol inhaler 2 puff PO Q4H PRN (Reason: wheezing) prednisone 20 mg tablet 60 mg PO DAILY 4 Days Qty: 12 0RF doxycycline monohydrate 100 mg tablet 100 mg PO BID Qty: 20 0RF ibuprofen 600 mg tablet 600 mg PO Q8H PRN (Reason: fever or pain) Qty: 20 0RF cephalexin 500 mg capsule 500 mg PO BID Qty: 14 0RF methadone [Methadose] 10 mg/mL Concentrate 100 mg PO DAILY sertraline [Zoloft] 50 mg tablet 50 mg PO DAILY Qty: 14 0RF albuterol sulfate 90 mcg/actuation aerosol powdr breath activated 2 inh inhalation Q4-6H PRN (Reason: shortness of breath or wheezing) Qty: 1 0RF prednisone 20 mg tablet 40 mg PO DAILY 5 Days Qty: 10 0RF ketorolac 10 mg tablet 10 mg PO TID PRN (Reason: pain) 5 Days Qty: 15 0RF amoxicillin-pot clavulanate 875-125 mg tablet 1 tab PO BID Qty: 14 0RF tramadol 50 mg tablet 50 mg PO Q6H PRN (Reason: pain) Qty: 20 0RF amoxicillin-pot clavulanate 875-125 mg tablet 1 tab PO BID Qty: 20 0RF
== END 2023-06-02 21:01 | disposition home or self-care (01) ==
LOC: HO.ED 20:58
PROVIDERS: Emergency Provider Emergency Medicine
DX: K08.89 Other specified disorders of teeth and supporting structures (principal); R68.84 Jaw pain; F17.210 Nicotine dependence, cigarettes, uncomplicated; Z71.6 Tobacco abuse counseling; Z79.899 Other long term (current) drug therapy
CPT/HCPCS: 99281

== ENCOUNTER 2023-08-28 04:46 | Emergency (ER) | payer OTHER, SELFPAY ==
--- NOTE | ~2023-08-28 | XR_ITS ---
EXAMINATION: XR FOOT, LEFT CLINICAL INFORMATION: Questionable retained foreign body COMPARISON: None available. TECHNIQUE: AP, lateral, and oblique views of the left foot. FINDINGS: The bones and soft tissues are normal. Specifically there are no obvious radiopaque or radiolucent foreign bodies identified in the soft tissues. No fracture. Alignment is anatomic. Joint spaces are maintained. XR/XR foot LT 2V IMPRESSION: Normal left foot.
[2023-08-28 05:02] VITALS: BP 129/61; PULSE 76; RESP 18; TEMP 36.5; O2SAT 98; BMI 37.4
[2023-08-28 05:13] VITALS: BP 140/89; PULSE 69; RESP 14; TEMP 36.7; O2SAT 93
--- NOTE | 2023-08-28 07:50 | ED_ITS ---
HPI - General Adult General Chief complaint: General Medical Stated complaint: bunion?, dental pain Time Seen by Provider: 08/28/23 07:19 Source: patient Mode of arrival: ambulatory Limitations: no limitations History of Present Illness HPI narrative: This is a 43-year-old male who has history of alcohol use disorder, opiate use disorder, depression, anxiety, PTSD who presents to the ER with multiple complaints. Patient reports 1 year ago he stepped on a nail with his left foot. Since then he has had intermittent pain in the foot. Did remove the nail after he stepped on it. He denies any associated redness, swelling, drainage, fevers or chills. Pain is worsened when he bears weight. He is also complaining of chronic lower dental pain. He reports he has been seen in the emergency room 3 times for this and has been placed on antibiotics. Does feel better after completing a course of antibiotics. He has not followed up with any dentist after his ER visits. Related Data Home Medications Medication Instructions Recorded Confirmed albuterol sulfate 90 mcg/actuation 2 puff PO Q4H PRN wheezing 02/05/21 07/07/21 aerosol inhaler (ProAir HFA) methadone 10 mg/mL oral 100 mg PO DAILY 07/07/21 07/07/21 concentrate (Methadose) Previous Rx's Medication Instructions Recorded cephalexin 500 mg capsule 500 mg PO BID #14 caps 06/29/21 doxycycline monohydrate 100 mg 100 mg PO BID #20 tabs 06/29/21 tablet ibuprofen 600 mg tablet 600 mg PO Q8H PRN fever or pain 06/29/21 #20 tabs sertraline 50 mg tablet (Zoloft) 50 mg PO DAILY #14 tabs 07/10/21 prednisone 20 mg tablet 60 mg (3 x 20 mg) PO DAILY 4 days 11/25/21 #12 tabs albuterol sulfate 90 mcg/actuation 2 inh inhalation Q4-6H PRN 07/15/22 breath activated powder inhaler shortness of breath or wheezing #1 ea prednisone 20 mg tablet 40 mg (2 x 20 mg) PO DAILY 5 days 07/15/22 #10 tabs amoxicillin 875 mg-potassium 1 tab PO BID #20 tabs 11/05/22 clavulanate 125 mg tablet tramadol 50 mg tablet 50 mg PO Q6H PRN pain #20 tabs 11/05/22 ketorolac 10 mg tablet 10 mg PO TID PRN pain 5 days #15 12/24/22 tabs amoxicillin 875 mg-potassium 1 tab PO BID #14 tabs 05/14/23 clavulanate 125 mg tablet amoxicillin 875 mg-potassium 1 tab PO BID #14 tabs 06/02/23 clavulanate 125 mg tablet Allergies Allergy/AdvReac Type Severity Reaction Status Date / Time No Known Allergies Allergy Verified 08/28/23 05:02 [No Known Allergies*] Review of Systems Review of Systems: Yes all other systems are reviewed and are negative Constitutional: Constitutional: Reports no additional constitutional complaints, Denies body ache(s), Denies chills, Denies fever(s), Denies headache(s) and Denies weakness Eyes: Eyes: Reports no additional eye complaints and Denies change in vision ENT: Reports system reviewed and no additional complaints, except as document ed, Reports dental pain, Denies dizziness, Denies headache(s), Denies nasal congestion, Denies nasal discharge and Denies neck pain Cardiovascular: Cardiovascular: Reports no additional cardiovascular complaints, Denies chest pain, Denies leg edema and Denies dyspnea Respiratory: Respiratory: Reports no additional respiratory complaints, Denies cough and Denies dyspnea Gastrointestinal: Gastrointestinal: Reports no additional gastrointestinal complaints, Denies abdominal pain, Denies diarrhea, Denies nausea and Denies vomiting Genitourinary: Genitourinary: Denies urinary incontinence Musculoskeletal: Musculoskeletal: Reports no additional musculoskeletal complaints, Denies back pain, Reports arthralgias, Denies joint swelling, Denies neck pain, Denies numbness and Denies tingling Integumentary/Breasts: Skin/Breast: Reports system reviewed and no additional complaints, except as docu and Denies rash Neurologic: Reports system reviewed and no additional complaints, except as documented, Denies Abnormal speech present, Denies dizziness, Denies headache(s), Denies numbness, Denies tingling and Denies weakness PMFSH Past Medical History Attestation statement: The following information was validated with the patient. Source: old records reviewed and nursing notes reviewed Medical History Hypothyroid Asthma Methadone maintenance therapy patient Drug abuse and dependence No known health problems Social History Social History Household Members: None Housing: Homeless Do you presently have visiting nurse or other home services: No Alcohol intake: current Alcohol intake frequency: does not drink Patient Tobacco Use Status: Current everyday Tobacco user Tobacco use type: Cigarette Cigarette Packs Per Day: 1 Cigarettes Per Day: 20.0 Years Smoked: 25 e-Cigarette/Vaping Use: Never Used Second Hand Smoke Exposure: Yes Substance Use Type: Crack/Cocaine and Heroin Advance Directives: No Advance Directives Information Provided: No service: No Current occupational status: employed Physical Exam ED Vital Signs: Vital Signs - 24 hr 08/28/23 05:02 08/28/23 05:13 Temperature 97.7 F 98.1 F Pulse Rate 76 69 Respiratory Rate 18 14 Blood Pressure 129/61 140/89 H Pulse Oximetry 98 93 Oxygen Delivery Method Room Air Room Air BMI result Body Mass Index 37.4 Const General: cooperative, healthy appearing, comfortable and no acute distress Orientation/consciousness: patient oriented x3 Limitations: no limitations HENMT Other: No trismus Extensive caries and gingival hypoplasia but I do not appreciate any erythema, swelling or abscess seen throughtout the mouth Head: Yes normal to inspection Ears: hearing grossly normal bilaterally and TM's normal bilaterally General nose exam: Normal external nose present Face and sinus: Yes normal facial exam Mouth: Normal oral and palatal mucosa present Teeth and gingiva: caries, gingiva abnormal and poor dentition Throat: Yes posterior oropharynx normal, Yes tonsils normal and Yes uvula midline Eyes General: appearance normal, both eyes and all related structures Pupils: Equal, round and reactive pupils present Neck Neck: Yes normal visual inspection, Yes full ROM, Yes no lymphadenopathy and Yes no meningeal signs Chest Chest palpation & inspection: normal inspection of the chest Resp Effort & Inspection: normal respiratory effort Auscultation: clear to auscultation bilaterally Cardio Rate: regular rate Rhythm: regular rhythm Peripheral pulses: Peripheral pulses 2+ throughout GI Inspection: Yes normal to inspection Palpation (GI): Soft to palpation and nontender Auscultation: normal bowel sounds Back/Spine/Pelvis Thoracic/Lumbar Spine: thoracic and lumbar spine normal to inspection Skin General skin exam: no rashes or lesions noted Neuro General: patient oriented x3, no meningeal signs, no focal motor deficits and normal sensation to monofilament Cranial nerves: Yes Equal, round and reactive pupils present Cognition (Neuro): normal cognition Speech: No Abnormal speech present Gait exam (Neuro): Normal gait present Motor exam (neuro): 5/5 motor strength present throughout Extrem Other: To the plantar aspect of the left foot there is a small abrasion noted with no surrounding erythema, drainage, swelling. There is some mild tenderness on palpation General: Yes normal to inspection Medical Decision Making Medical Decision Making MDM Narrative: This is a 43-year-old male who has history of alcohol use disorder, opiate use disorder, depression, anxiety, PTSD who presents to the ER with multiple complaints. Patient reports 1 year ago he stepped on a nail with his left foot. Since then he has had intermittent pain in the foot. Did remove the nail after he stepped on it. He denies any associated redness, swelling, drainage, fevers or chills. Pain is worsened when he bears weight. He is also complaining of chronic lower dental pain. He reports he has been seen in the emergency room 3 times for this and has been placed on antibiotics. Does feel better after completing a course of antibiotics. He has not followed up with any dentist after his ER visits. I do not appreciate any dental infection or abscess. There is extensive caries throughout the mouth with gingival hyperplasia. Patient would likely benefit from seeing a oral surgeon and have routine dental care by do not believe that he needs any antibiotics today. Patient with concern for stepping on a foreign body year ago with possible retained foreign body. I will check an x-ray of his left foot to rule this out. There is no active signs of infection on exam Differential Diagnosis Differential Diagnoses: The differential diagnosis associated with the presentation includes Dental caries, dental infection, dental abscess, Sha's angina Retained foreign body, cellulitis Admission/Observation Consideration of admission/observation: Escalation of care including admission/observation considered Independent Interpretation I performed an independent interpretation of an: Plain X-Ray Interpretation: I independently reviewed the chest x-ray and agree with the radiology Radiology Impression Discussion of test interpretation with radiology: I have reviewed the radiologist's reading. Radiologist Impression: [address] [address] XRay Report Signed Patient: Ajith Chaves MR#: [id number] : 1980 Acct:[id number] Age/Sex: 43 / M ADM Date: 08/28/23 Loc: HO.ED Attending Dr: Ordering Physician: Juani Mai NP Date of Service: 08/28/23 Procedure(s): XR foot LT 2V Accession Number(s): [id number] cc: Physician,Unknown ; Juani Mai NP~ EXAMINATION: XR FOOT, LEFT CLINICAL INFORMATION: Questionable retained foreign body COMPARISON: None available. TECHNIQUE: AP, lateral, and oblique views of the left foot. FINDINGS: The bones and soft tissues are normal. Specifically there are no obvious radiopaque or radiolucent foreign bodies identified in the soft tissues. No fracture. Alignment is anatomic. Joint spaces are maintained. XR/XR foot LT 2V IMPRESSION: Normal left foot. Independent Historian Clinical information obtained from an independent historian. History obtained from or confirmed by: Friend Prescription Management I considered prescription management with: Antibiotic Discharge Plan Discharge Clinical Impression: Pain, dental, Foot pain, left Patient Disposition: Home, Self-Care Instructions: Arthralgia (ED), Toothache (ED) Additional Instructions: Please see a dentist Motrin or tylenol for pain Salt water gargles Your x-ray of your foot shows no foreign body. Stop picking at the scab that is there Prescriptions: No Action albuterol sulfate [ProAir HFA] 90 mcg/actuation HFA aerosol inhaler 2 puff PO Q4H PRN (Reason: wheezing) prednisone 20 mg tablet 60 mg PO DAILY 4 Days Qty: 12 0RF doxycycline monohydrate 100 mg tablet 100 mg PO BID Qty: 20 0RF ibuprofen 600 mg tablet 600 mg PO Q8H PRN (Reason: fever or pain) Qty: 20 0RF cephalexin 500 mg capsule 500 mg PO BID Qty: 14 0RF methadone [Methadose] 10 mg/mL Concentrate 100 mg PO DAILY sertraline [Zoloft] 50 mg tablet 50 mg PO DAILY Qty: 14 0RF albuterol sulfate 90 mcg/actuation aerosol powdr breath activated 2 inh inhalation Q4-6H PRN (Reason: shortness of breath or wheezing) Qty: 1 0RF prednisone 20 mg tablet 40 mg PO DAILY 5 Days Qty: 10 0RF ketorolac 10 mg tablet 10 mg PO TID PRN (Reason: pain) 5 Days Qty: 15 0RF amoxicillin-pot clavulanate 875-125 mg tablet 1 tab PO BID Qty: 14 0RF amoxicillin-pot clavulanate 875-125 mg tablet 1 tab PO BID Qty: 14 0RF tramadol 50 mg tablet 50 mg PO Q6H PRN (Reason: pain) Qty: 20 0RF amoxicillin-pot clavulanate 875-125 mg tablet 1 tab PO BID Qty: 20 0RF Referrals: Physician,Unknown J [Primary Care Provider] - 1 week Interventions: ED Discharge Assessment Last Done: 08/28/23 08:42 Discharge Date/Time: 08/28/23 08:43
== END 2023-08-28 08:43 | disposition home or self-care (01) ==
PROVIDERS: Emergency Provider Emergency Medicine
DX: M79.672 Pain in left foot (principal); K08.89 Other specified disorders of teeth and supporting structures
CPT/HCPCS: 73620; 99283

== ENCOUNTER 2023-09-29 22:02 | Emergency (ER) | payer OTHER, SELFPAY ==
[2023-09-29 22:14] VITALS: BP 128/86; PULSE 83; RESP 16; TEMP 36.3; O2SAT 95; BMI 32.5
--- NOTE | 2023-09-29 22:35 | PC.NURSE ---
pt changed over into ligature free hospital attire. pt admitted to having alcohol on personal items security secured belongs and placed in pod locker # [id number]
--- NOTE | 2023-09-30 00:06 | ED_ITS ---
HPI - General Adult General Chief complaint: ETOH/Substance Use Stated complaint: ETOH Time Seen by Provider: 09/29/23 23:00 Source: patient and EMS Mode of arrival: EMS Limitations: no limitations History of Present Illness HPI narrative: Patient comes via ambulance complaining of alcohol intoxication. According to the patient's nurse and staff, when patient arrived, he was awake, alert, requesting detox. When I went to speak with the patient, patient was completely somnolent, pinpoint pupils, oxygen saturation in the mid 80s. Patient had to be Narcan. Patient woke up immediately, Patient denies using drugs Related Data Home Medications Medication Instructions Recorded Confirmed albuterol sulfate 90 mcg/actuation 2 puff PO Q4H PRN wheezing 02/05/21 07/07/21 aerosol inhaler (ProAir HFA) methadone 10 mg/mL oral 100 mg PO DAILY 07/07/21 07/07/21 concentrate (Methadose) Previous Rx's Medication Instructions Recorded cephalexin 500 mg capsule 500 mg PO BID #14 caps 06/29/21 doxycycline monohydrate 100 mg 100 mg PO BID #20 tabs 06/29/21 tablet ibuprofen 600 mg tablet 600 mg PO Q8H PRN fever or pain 06/29/21 #20 tabs sertraline 50 mg tablet (Zoloft) 50 mg PO DAILY #14 tabs 07/10/21 prednisone 20 mg tablet 60 mg (3 x 20 mg) PO DAILY 4 days 11/25/21 #12 tabs albuterol sulfate 90 mcg/actuation 2 inh inhalation Q4-6H PRN 07/15/22 breath activated powder inhaler shortness of breath or wheezing #1 ea prednisone 20 mg tablet 40 mg (2 x 20 mg) PO DAILY 5 days 07/15/22 #10 tabs amoxicillin 875 mg-potassium 1 tab PO BID #20 tabs 11/05/22 clavulanate 125 mg tablet tramadol 50 mg tablet 50 mg PO Q6H PRN pain #20 tabs 11/05/22 ketorolac 10 mg tablet 10 mg PO TID PRN pain 5 days #15 12/24/22 tabs amoxicillin 875 mg-potassium 1 tab PO BID #14 tabs 05/14/23 clavulanate 125 mg tablet amoxicillin 875 mg-potassium 1 tab PO BID #14 tabs 11/30/23 clavulanate 125 mg tablet Allergies Allergy/AdvReac Type Severity Reaction Status Date / Time No Known Allergies Allergy Verified 08/28/23 05:02 [No Known Allergies*] Review of Systems 2 Review of Systems: Constitutional : No Weight loss, No Fever, No Chills, No Night Sweats, No Fatigue, No Malaise ENT/Mouth : No Hearing loss, No Ear Pain, No Nasal Congestion, No Sinus Pain, No Hoarseness, No sore throat, No Rhinorrhea, No Swallowing Difficulty Eyes: No Eye Pain, No Swelling, No Redness, No Foreign Body, No Discharge, No Vision Changes Cardiovascular : No Chest Pain, No SOB, No Dyspnea on Exertion, No Orthopnea, No Edema, No Palpitations Respiratory : No Cough, No Sputum, No Wheezing, No Smoke Exposure, No Dyspnea Gastrointestinal : No Nausea, No Vomiting, No Diarrhea, No Constipation, No abdominal Pain, No Hematochezia, No Melena Genitourinary : no irregular bleeding, No Dysuria, No Urinary Frequency, No Hematuria, No Urinary Incontinence, No Urgency, No Flank Pain, No Urinary Flow Changes, No Hesitancy Musculoskeletal : No joint pain, No Myalgias, No Joint Swelling Skin : No Skin Lesions, No rash Neuro : No Weakness, No Numbness, No Paresthesias, No Loss of Consciousness, No Dizziness, No Headache Psych : No Anxiety/Panic, No Depression, No SI/HI/AH/VH, admits to alcohol abuse, requesting detox, denies using drugs Heme/Lymph: No Bruising, No Bleeding,No Lymphadenopathy Endocrine : No Polyuria, No Polydipsia, No Temperature Intolerance PMFSH Past Medical History Medical History Hypothyroid Asthma Methadone maintenance therapy patient Drug abuse and dependence No known health problems Social History Social History Household Members: None Housing: Homeless Do you presently have visiting nurse or other home services: No Alcohol intake: current Alcohol intake frequency: does not drink Patient Tobacco Use Status: Current everyday Tobacco user Tobacco use type: Cigarette Cigarette Packs Per Day: 1 Cigarettes Per Day: 20.0 Years Smoked: 25 e-Cigarette/Vaping Use: Never Used Second Hand Smoke Exposure: Yes Substance Use Type: Crack/Cocaine and Heroin Advance Directives: No Advance Directives Information Provided: No service: No Current occupational status: employed Physical Exam ED Vital Signs: Vital Signs - 24 hr 09/29/23 22:14 09/30/23 01:53 09/30/23 03:27 Temperature 97.3 F 97.2 F Pulse Rate 83 80 Respiratory Rate 16 16 Blood Pressure 128/86 107/65 Pulse Oximetry 95 100 90 L Oxygen Delivery Method Room Air Room Air Room Air 09/30/23 05:13 Temperature 98.3 F Pulse Rate 74 Respiratory Rate 16 Blood Pressure 123/78 Pulse Oximetry 95 Oxygen Delivery Method Room Air BMI result Body Mass Index 32.5 Const Other: After Narcan: Appearance: Alert. Oriented X3. No acute distress. Intoxicated, word slurring, Angry because he was given Narcan Eyes: Pupils equal, round and reactive to light. ENT: Pharynx normal. Neck: Normal inspection. Neck supple. No lymph nodes noted. No crepitus CVS: Normal heart rate and rhythm. Pulses normal. Normal S1 and S2 Respiratory: No respiratory distress. Breath sounds normal. No Wheezing. No rales Abdomen: Soft and nontender. No rigidity. No distention. Skin: Skin warm and dry. Normal skin color. Normal skin turgor. Extremities: No lower extremity edema. No Lacerations. No Rash Neuro: No sensory deficit. Moving all extremities. Slurring words, still intoxicated. CN 2 through 12 grossly intact Psych: Angry status post Narcan Course Course Course Narrative: -patient's oxygen saturation was 84% on room air with good Plath -intranasal Narcan 4 mg were given, patient woke up immediately, improving oxygen saturation to the mid 90s -all of patient's labs pending -patient denies SI or HI, section 12 not indicated -patient is on a monitor, saturating in the high 90s after Narcan -patient very restless, given IV Ativan to help with the withdrawal symptoms Reevaluation(s) Reevaluation #1: Physician observation continued, no overnight events reported by nursing. Vital signs stable. Awaiting addiction medicine eval. Time: 07:38 Medications Administered Discontinued Medications Generic Name Dose Route Start Last Admin Trade Name Freq PRN Reason Stop Dose Admin Diphenhydramine HCl 50 mg 09/30/23 00:17 09/30/23 00:32 Diphenhydramine Hcl 50 Mg/Ml Vial IVPUSH 09/30/23 00:18 50 mg ONCE ONE Administration Lorazepam 2 mg 09/30/23 00:49 09/30/23 01:14 Lorazepam 2 Mg/Ml Vial IVPUSH 09/30/23 00:50 2 mg ONCE ONE Administration Metoclopramide HCl 10 mg 09/30/23 00:17 09/30/23 00:31 Metoclopramide Hcl 10 Mg/2 Ml Vial IVPUSH 09/30/23 00:18 10 mg ONCE ONE Administration Naloxone HCl 4 mg 09/30/23 00:08 09/30/23 00:20 Naloxone Hcl Nasal 4 Mg [place] NOSTRILALT 09/30/23 00:09 4 mg ONCE ONE Administration Medical Decision Making Differential Diagnosis Differential Diagnoses: The differential diagnosis associated with the presentation includes (Alcohol intoxication, polysubstance abuse) Lab Data 09/30/23 03:57 09/30/23 03:57 Labs: Lab Results 09/30/23 Range/Units 03:57 WBC 8.5 (4.8-10.8) X10*3/uL RBC 4.55 L (4.60-5.80) X10*6/uL Hgb 14.1 (14.0-18.0) g/dl Hct 41.3 L (42.0-52.0) % MCV 90.8 (80.0-98.0) fL MCH 31.0 (27.0-33.0) pg MCHC 34.1 (31.0-36.0) g/dl RDW 13.7 (11.0-16.0) % Plt Count 194 (160-400) X10*3/uL MPV 9.4 (9.4-12.4) fL Immature Gran % (Auto) 0.2 (0.0-0.4) % Neut % (Auto) 71.8 (45-73) % Lymph % (Auto) 22.1 (20-40) % Johnston % (Auto) 4.6 (2-11) % Eos % (Auto) 0.7 (0-4) % Baso % (Auto) 0.6 (0-2) % Lymph # (Auto) 1.9 (1.2-4.9) X10*3/uL Johnston # (Auto) 0.4 (0.1-1.2) X10*3/uL Eos # (Auto) 0.1 (0.0-0.4) X10*3/uL Baso # (Auto) 0.1 (0.0-0.2) X10*3/uL Abs Immat Gran (auto) 0.02 (0.00-0.03) X10*3/uL Absolute Neuts (auto) 6.1 (2.0-8.3) x10*3/uL Absolute Nucleated RBC 0.000 (0.0-0.012) X10*3/uL Nucleated RBC % (auto) 0.0 (0.0-0.2) /100WBC Sodium 141 (135-145) mmol/L Potassium 4.0 (3.3-5.1) mmol/L Chloride 108 (96-108) mmol/L Carbon Dioxide 25 (22-29) mmol/L Anion Gap 12 (12-20) BUN 16 (9-16) mg/dL Creatinine 0.79 (0.5-1.4) mg/dL Estim Creat Clear Calc 152.0 Estimated GFR > 60 Random Glucose 99 (60-115) mg/dL Calcium 9.0 (8.4-10.2) mg/dL Magnesium 2.1 (1.6-2.6) mg/dL Total Bilirubin 0.3 (0.0-1.0) mg/dL Direct Bilirubin 0.2 (0.0-0.5) mg/dL AST 56 H (5-37) U/L ALT 61 H (0-40) U/L Alkaline Phosphatase 99 (39-117) U/L Total Protein 7.5 (6.5-8.0) g/dL Albumin 4.1 (3.5-5.0) g/dL Ethyl Alcohol 143 mg/dL Critical Care Time Critical Care Time Critical Care Time: Yes Total Critical Care Time: 60 Attestation: I have personally provided critical care time. Time includes review of lab data, radiology results, discussion with consultants, and monitoring for potential decompensation. Intervention performed as documented. Discharge Plan Discharge Clinical Impression: Polysubstance abuse Patient Disposition: Still a Patient Prescriptions: No Action albuterol sulfate [ProAir HFA] 90 mcg/actuation HFA aerosol inhaler 2 puff PO Q4H PRN (Reason: wheezing) prednisone 20 mg tablet 60 mg PO DAILY 4 Days Qty: 12 0RF doxycycline monohydrate 100 mg tablet 100 mg PO BID Qty: 20 0RF ibuprofen 600 mg tablet 600 mg PO Q8H PRN (Reason: fever or pain) Qty: 20 0RF cephalexin 500 mg capsule 500 mg PO BID Qty: 14 0RF methadone [Methadose] 10 mg/mL Concentrate 100 mg PO DAILY sertraline [Zoloft] 50 mg tablet 50 mg PO DAILY Qty: 14 0RF albuterol sulfate 90 mcg/actuation aerosol powdr breath activated 2 inh inhalation Q4-6H PRN (Reason: shortness of breath or wheezing) Qty: 1 0RF prednisone 20 mg tablet 40 mg PO DAILY 5 Days Qty: 10 0RF ketorolac 10 mg tablet 10 mg PO TID PRN (Reason: pain) 5 Days Qty: 15 0RF amoxicillin-pot clavulanate 875-125 mg tablet 1 tab PO BID Qty: 14 0RF amoxicillin-pot clavulanate 875-125 mg tablet 1 tab PO BID Qty: 14 0RF tramadol 50 mg tablet 50 mg PO Q6H PRN (Reason: pain) Qty: 20 0RF amoxicillin-pot clavulanate 875-125 mg tablet 1 tab PO BID Qty: 20 0RF
[2023-09-30] MEDS: Naloxone HCl Nasal 4 MG SPRAY NOSTRILALT (00:20)
[2023-09-30] MEDS: Metoclopramide HCl 10 MG/2 ML VIAL IVPUSH (00:31)
[2023-09-30] MEDS: diphenhydrAMINE HCL 50 MG/ML VIAL IVPUSH (00:32)
--- NOTE | 2023-09-30 00:35 | PC.NURSE ---
Pt not responding verbally to MD when approached, SpO2 83% RA, Narcan administered intranasal, A&Ox3 immediately after administration yelling at RN Why did you Narcan me?! Pt then began to vomit, restless, jumping all over bed. MD notified. IV access obtained. Spo2 99% RA meds administered per SEP by hvac sheet metal installer helper. Moved to RM 8 for cardiac monitoring. Report given to Darci BLACKMAN.
[2023-09-30] MEDS: LORazepam 2 MG/ML VIAL IVPUSH (01:14)
[2023-09-30 01:53] VITALS: O2SAT 100
[2023-09-30 03:27] VITALS: BP 107/65; PULSE 80; RESP 16; TEMP 36.2; O2SAT 90
[2023-09-30 04:00] LABS: MANUAL DIFF FLAG NO
[2023-09-30 04:01] LABS: Basophils Absolute Auto 0.1 X10*3/uL (0.0-0.2); Basophils Percent Auto 0.6 % (0-2); Eosinophils Absolute Auto 0.1 X10*3/uL (0.0-0.4); Eosinophils Percent Auto 0.7 % (0-4); Hematocrit 41.3 % (42.0-52.0); Hemoglobin 14.1 g/dl (14.0-18.0); Imm Gran Abs Auto 0.02 X10*3/uL (0.00-0.03); Imm Gran Pct Auto 0.2 % (0.0-0.4); Lymphocytes Absolute Auto 1.9 X10*3/uL (1.2-4.9); Lymphocytes Percent Auto 22.1 % (20-40); Mean Corpuscular HGB Conc 34.1 g/dl (31.0-36.0); Mean Corpuscular Volume 90.8 fL (80.0-98.0); Mean Platelet Volume 9.4 fL (9.4-12.4); Monocytes Absolute Auto 0.4 X10*3/uL (0.1-1.2); Monocytes Percent Auto 4.6 % (2-11); Neutrophils Absolute Auto 6.1 x10*3/uL (2.0-8.3); Neutrophils Percent Auto 71.8 % (45-73); Platelet Count 194 X10*3/uL (160-400); Red Blood Count 4.55 X10*6/uL (4.60-5.80); Red Cell Distribution Width 13.7 % (11.0-16.0); White Blood Count 8.5 X10*3/uL (4.8-10.8)
[2023-09-30 04:20] LABS: Alanine Aminotransferase 61 U/L (0-40); Albumin Level 4.1 g/dL (3.5-5.0); Alkaline Phosphatase 99 U/L (39-117); Anion Gap 12 (12-20); Aspartate Amino Transferase 56 U/L (5-37); Bilirubin Direct 0.2 mg/dL (0.0-0.5); Bilirubin Total 0.3 mg/dL (0.0-1.0); Blood Urea Nitrogen 16 mg/dL (9-16); Carbon Dioxide 25 mmol/L (22-29); Chloride 108 mmol/L (96-108); Estimated Glomerular Filt Rate > 60; Ethanol 143 mg/dL; Glucose Random 99 mg/dL (60-115); Magnesium 2.1 mg/dL (1.6-2.6); Sodium 141 mmol/L (135-145); Total Protein 7.5 g/dL (6.5-8.0)
[2023-09-30 05:13] VITALS: BP 123/78; PULSE 74; RESP 16; TEMP 36.8; O2SAT 95
--- NOTE | 2023-09-30 08:28 | PC.NURSE ---
Resumed care of patient at 0700, pt is currently sleeping, pending detox ? pt still has not provided urine even after multiple prompting. Call rodriguez within reach
[2023-09-30 09:29] LABS: Amphetamine Screen Urine Not Detected (Not Detect); Barbiturates, Urine Not Detected (Not Detect); Benzodiazepines Screen Urine Not Detected (Not Detect); Cannabinoid Screen Urine Not Detected (Not Detect); Cocaine Screen Urine Not Detected (Not Detect); Fentanyl, urine Not Detected (Not Detect); Opiate Screen Urine Not Detected (Not Detect); Phencyclidine Screen Urine Not Detected (Not Detect)
[2023-09-30 10:00] VITALS: BP 130/82; PULSE 82; RESP 16; TEMP 37.1; O2SAT 95
--- NOTE | 2023-09-30 10:20 | HE.PHANOTE ---
Methadone verification Pharmacy has received the methadone verification. Patient last received methadone 65 mg from [facility] on 09/29/2023 @ 0564 with take home bottles, report by KIMBERLY Huitron.
[2023-09-30] MEDS: methADONE HCl 20 MG/2 ML ORAL.CONC 65 MG PO (10:21)
--- NOTE | 2023-09-30 10:31 | MHC.RECOVRN ---
Pt accepted to [facility] for 11 am admission. Will be transported via [employer].
--- NOTE | 2023-09-30 10:35 | PC.NURSE ---
patient a&ox3, vss, pt methadone verified and pt medicated per order, plan for pt to discharge to [facility]- care team working on lyft for patient, will continue to monitor.
[2023-09-30 10:57] VITALS: BP 130/82; PULSE 82; RESP 16; TEMP 37.1; O2SAT 95
== END 2023-09-30 10:57 ==
PROVIDERS: Emergency Provider Emergency Medicine
DX: F19.10 Other psychoactive substance abuse, uncomplicated (principal); J45.909 Unspecified asthma, uncomplicated
CPT/HCPCS: 36415; 80048; 80076; 80307; 83735; 85025; 96374; 96375; 99284; J1200; J2060; J2765